=== PATIENT | male | born 1970 | race Caucasian/White ===

== ENCOUNTER 2019-04-17 12:30 | Outpatient (RCR) | payer BC, SELFPAY ==
--- NOTE | 2019-04-10 16:02 | PTOPEVAL ---
PHYSICAL THERAPY EVALUATION AND PLAN OF CARE 04-10-2019 The PT evaluation was completed today for the diagnosis of B LE lymphedema and plan of treatment is established for 2x/week for 4 weeks.. Thank you for referring Jesus to [facility] [place]. Please review, sign, date and return this plan of care CARMELA. I agree with and certify that the following plan of care is medically necessary. Referring Physician Date Attending Provider: Mehran Wetzel MD *PT Outpatient Evaluation Start: 04/10/19 14:59 Document 04/10/19 14:55 MAGALY (Rec: 04/10/19 16:00 [id number] [id number]) Assessment Status Evaluation Outpatient Past Medical History Neurological History Hx Transient Ischemic Attacks (TIA) Yes Hx Other Neurological Disorders Yes: PERIPHERAL NEUROPATHY, chronic regional pain syndrome Cardiovascular History Hx Hypertension Yes: meds Hx Other Cardiac Disorders Yes: DVT in B LE's Respiratory History Hx Sleep Apnea Yes: not using CPAP Hx Other Respiratory Disorders Yes: seasonal allergies Gastrointestinal History Hx Gastroesophageal Reflux Disease Yes Hx Hernia Yes: RIGHT INGUINAL Hx Irritable Bowel Yes Genitourinary History Hx Benign Prostatic Hyperplasia Yes: PROSTATITIS Hx Other Genitourinary Disorders Yes: had kidney failure due to coma reaction from vancomycin Musculoskeletal History Hx Back Pain Yes: T 12 crushed; L 4-5 disc herniation Hx Orthopedic Surgery Yes: SURGERY X7 RIGHT HIP- THR with infection Hx Other Musculoskeletal Disorders Yes: fibromyalgia; has lost 10 #, trying to lose wt Hematological History Hx Hematological Disorders No Significant History Endocrine History Hx Diabetes Yes: taking meds, decreasing and trying to get off meds HEENT History Hx Tonsillectomy Yes Hx Sinus Problems Yes: sinus surgery x2; Integumentary History Hx Skin Disorders No Significant History Reproductive History Hx Reproductive Disorders No Significant History Psychosocial History Hx Anxiety Yes Pain History History of Any Previous or Ongoing No Significant History Instance of Pain Anesthesia History Hx Other Anesthesia Reactions Yes: ALWAYS WAKES UP DURING SURGERY Other History Hx MRSA Yes Hx Other Medical Conditions Yes: medically induced coma Evaluation Information Problem Diagnosis lymphedema in B LE's; Onset Jan 16, 2019 Prior Level of Function Activity Level (Last 3 Months) 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
--- NOTE | 2019-04-19 13:49 | PCPTNOTE ---
Patient called & cancelled scheduled appointment , pt stated he was [ ]in ER with kidney stones
--- NOTE | 2019-05-29 14:46 | PCPTNOTE ---
PHYSICAL THERAPY DISCHARGE 05-29-2019 Attending Provider: Mehran Wetzel MD Patient:Jesus Laws Date of :1970 Mr. Laws has not returned for any further treatments since 04/17/2019, therefore he will be discharged from therapy at this time. The goals were not assessed. He received 2 PT sessions on April 10 and , for the diagnosis of lymphedema. He then called and canceled, stated he had kidney stones. And did not return for any further treatments. Thank you for referring Jesus to [facility]. Please review, sign, date and return this discharge summary CARMELA. I have been updated about the patient's current status and I agree with discharge from the above service at this time. Referring Physician Date
== END 2019-05-30 11:15 | disposition home or self-care (01) ==
LOC: ANHPT 12:30
PROVIDERS: Visit Provider Internal Medicine Cardiovascular Disease
DX: I89.0 Lymphedema, not elsewhere classified (principal)
CPT/HCPCS: 97140; 97162

== ENCOUNTER 2019-04-30 17:11 | Outpatient (RCR) | payer BC, SELFPAY ==
[2019-04-30 18:27] LABS: Basophils Absolute Auto 0.1 K/mm3 (0.0-0.1); Basophils Percent Auto 0.5 % (0.2-1.2); Eosinophils Absolute Auto 0.2 K/mm3 (0-0.3); Eosinophils Percent Auto 2.2 % (0-4.4); Hemoglobin 14.4 g/dL (14.0-18.0); Immature Granulocyte Absolute 0.03 K/mm3 (0.00-0.031); Immature Granulocyte Percent A 0.3 % (0-0.5); Lymphocytes Absolute Auto 2.25 K/mm3 (0.9-3.2); Lymphocytes Percent Auto 23.2 % (18.3-44.2); Mean Corpuscular HGB Conc 31.3 g/dl (32-36); Mean Corpuscular Hemoglobin 26.6 pg (26-34); Mean Corpuscular Volume 84.9 fl (80-100); Mean Platelet Volume 10.5 fl (7.4-10.4); Monocytes Absolute Auto 0.6 K/mm3 (0.1-0.6); Neutrophils Absolute Auto 6.6 K/mm3 (1.3-6.7); Neutrophils Percent Auto 67.8 % (45.5-73.1); Platelet Count Result 202 k/mm3 (150-375); Red Blood Count 5.42 M/mm3 (4.6-6.20); Red Cell Distribution Width 15.9 % (11.5-14.5); White Blood Count 9.7 K/mm3 (4.5-10.0)
[2019-04-30 18:48] LABS: Alanine Aminotransferase 17 U/L (4-50); Albumin Level 4.4 g/dL (3.5-5.1); Alkaline Phosphatase 75 U/L (38-126); Aspartate Amino Transferase 23 U/L (17-59); Bilirubin,Total 0.6 mg/dL (0.2-1.3); Blood Urea Nitrogen 16 mg/dL (9-20); Calcium 9.6 mg/dL (8.4-10.2); Carbon Dioxide 32 mmol/L (22-30); Chloride 95 mmol/L (98-107); Estimated Glomerular Filt Rate > 60; Glucose 130 mg/dL (75-110); Sodium 140 mmol/L (137-145)
[2019-04-30 19:36] LABS: Hepatitis B Surface Anti Res Negative; Hepatitis C Virus Antibody Negative (Negative)
[2019-05-03 22:46] LABS: NIL 0.02 IU/mL; Quantiferon TB Plus, 1T NEGATIVE (NEGATIVE)
[2019-05-04 22:45] LABS: Hepatitis B Core Ab Total Nonreactive (Nonreactive); Hepatitis Be Antibody Nonreactive; Hepatitis Be Antigen Nonreactive
== END 2019-07-29 23:59 | disposition home or self-care (01) ==
LOC: ANHLAB 17:11
DX: M06.9 Rheumatoid arthritis, unspecified (principal); M06.09 Rheumatoid arthritis without rheumatoid factor, multiple sites; Z79.899 Other long term (current) drug therapy
CPT/HCPCS: 36415; 80053; 85025; 86480; 86704; 86706; 86707; 86803; 87350

== ENCOUNTER 2019-09-05 18:11 | Emergency (ER) | payer BC, SELFPAY ==
--- NOTE | ~2019-09-05 | XR_ITS ---
EXAMINATION: XR hip LT min 3V w AP pelvis DATE: 09/05/2019 18:47 INDICATION: Left hip pain. TECHNIQUE: An anteroposterior view of the pelvis and 3 views of left hip were obtained. COMPARISON: Right femur radiographs 01/14/2013 FINDINGS: Partially visualized is a total right hip arthroplasty in near-anatomic alignment. No fract ure. There is mild left hip osteoarthritis. Surgical clips overlie the left inguinal region. There is mild lumbar spondylosis. IMPRESSION: 1. Mild left hip osteoarthritis. 2. Total right hip arthroplasty in near-anatomic alignment. Reviewed, dictated and finalized at location A.
[2019-09-05 18:22] VITALS: BP 149/79; PULSE 90; RESP 20; TEMP 36.7; O2SAT 98
--- NOTE | 2019-09-05 19:10 | ED.GENADULT ---
HPI - General Adult General Chief complaint: Extremity Injury, Lower Stated complaint: FELL 11 DAYS A GO Time Seen by Provider: 09/05/19 18:15 Source: patient Mode of arrival: ambulatory Limitations: no limitations History of Present Illness HPI narrative: Patient is a 49-year-old male who notes that he slipped and fell onto his left side 11 days ago and has since had aching pain to the left hip groin region patient notes that this happened 11 days ago has not been seen for this complaint on arrival to emergency department notes aching pain worse with activity and movement patient denies other injuries or complaints. Patient presents with walking cane Related Data Home Medications Medication Instructions Recorded Confirmed alprazolam 1 mg PO DAILY 03/09/19 03/09/19 apixaban [Eliquis] 5 mg PO DAILY 03/09/19 03/14/19 dicyclomine 10 mg PO DAILY 03/09/19 03/09/19 diphenoxylate-atropine 3 tablet PO TID 03/09/19 03/09/19 duloxetine [Cymbalta] 60 mg PO DAILY 03/09/19 03/09/19 ergocalciferol (vitamin D2) 03/09/19 [Vitamin D2] furosemide 40 mg PO DAILY 03/09/19 03/09/19 losartan 50 mg PO DAILY 03/09/19 03/09/19 methadone 10 mg PO DAILY 03/09/19 03/09/19 methotrexate sodium (PF) 03/09/19 montelukast [Singulair] 10 mg PO DAILY 03/09/19 03/09/19 oxycodone 15 mg PO DAILY 03/09/19 03/09/19 pregabalin [Lyrica] 200 mg PO DAILY 03/09/19 03/09/19 rabeprazole [AcipHex] 20 mg PO DAILY 03/09/19 03/09/19 sitagliptin [Januvia] 100 mg PO DAILY 03/09/19 03/09/19 spironolactone 25 mg PO DAILY 03/09/19 03/09/19 tamsulosin 0.4 mg PO DAILY 03/09/19 03/09/19 testosterone cypionate 200 mg IM WEEKLY 03/09/19 03/09/19 tizanidine 4 mg PO DAILY 03/09/19 Allergies Allergy/AdvReac Type Severity Reaction Status Date / Time Penicillins Allergy Unknown Rash Verified 09/05/19 18:24 prednisone Allergy Unknown Rash Verified 09/05/19 18:24 vancomycin Allergy Unknown UNK Verified 03/14/19 10:08 Review of Systems Review of Systems: All systems reviewed & are unremarkable except as noted in HPI and below PMFSH Past Medical History Medical History (Updated 09/05/19 @ 19:13 by Melvin Renteria PA-C) Anxiety Diabetes GERD (gastroesophageal reflux disease) Hyperlipidemia Hypertension WILLIAM (obstructive sleep apnea) Surgical History Surgical History (Updated 09/05/19 @ 19:11 by Melvin Renteria PA-C) History of orthopedic surgery Family History Family History (Updated 12/29/10 @ 15:51 by DOCTOR UNKNOWN) Other Diabetes mellitus Family history of mental disorder Hypertension Social History Social History Alcohol intake: never Exam Narrative: Exam Narrative: GENERAL: Well-appearing, well-nourished, and in no acute distress. HEAD: Normocephalic, atraumatic. EYES: PERRLA and EOMI. ENT: Nares clear, no rhinorrhea or epistaxis. Mucous membranes moist. CHEST: Clear to auscultation. No respiratory distress. No wheezes rales or rhonchi HEART: Regular rate and rhythm. No murmur heard. Normal peripheral pulses. EXTREMITIES: Normal range of motion. No edema. Tenderness of the left groin no deformities noted. No lumbar tenderness SKIN: Warm, dry, no rash. NEURO: No focal deficits. Alert and oriented x3. Cranial nerves II through XII grossly intact. Neurovascularly intact PSYCH: Normal mood and affect. Course Course Emergency Course: Patient in the room in no distress aware of case findings treatment plan and diagnosis agreeing to follow-up as directed or to return if symptoms worsen or concerns Vital Signs Vital signs: Vital Signs Temperature 98.0 F 09/05/19 18:22 Pulse Rate 90 09/05/19 18:22 Respiratory Rate 20 09/05/19 18:22 Blood Pressure 149/79 H 09/05/19 18:22 Pulse Oximetry 98 09/05/19 18:22 Temperature 98.0 F 09/05/19 18:22 Pulse Rate 90 09/05/19 18:22 Respiratory Rate 20 09/05/19 18:22 Blood Pressure 149/79 H 09/05/19 18:22 Pulse O
[2019-09-05 19:43] VITALS: BP 130/80; PULSE 88; RESP 20; TEMP 36.7; O2SAT 99
== END 2019-09-05 19:46 | disposition home or self-care (01) ==
PROVIDERS: Emergency Provider Emergency Medicine
DX: M25.552 Pain in left hip (principal); E11.9 Type 2 diabetes mellitus without complications; K21.9 Gastro-esophageal reflux disease without esophagitis; E78.5 Hyperlipidemia, unspecified; I10 Essential (primary) hypertension; G47.33 Obstructive sleep apnea (adult) (pediatric); Z79.01 Long term (current) use of anticoagulants; M16.12 Unilateral primary osteoarthritis, left hip; Z96.642 Presence of left artificial hip joint; W01.0XXA Fall on same level from slipping, tripping and stumbling without subsequent striking against object, initial encounter
CPT/HCPCS: 73502; 99283

== ENCOUNTER 2020-01-16 06:48 | Outpatient (NON) | payer BC, SELFPAY ==
[2020-01-16 23:56] LABS: SARS-CoV-2 RNA PCR Negative
== END 2020-01-16 06:49 ==
DX: Z01.812 Encounter for preprocedural laboratory examination (principal); Z20.828 Contact with and (suspected) exposure to other viral communicable diseases
CPT/HCPCS: 87635; C9803; U0003

== ENCOUNTER 2020-01-22 14:58 | Outpatient (NON) | payer BC, SELFPAY ==
[2020-01-24 13:31] LABS: SARS-CoV-2 RNA PCR Negative
== END 2020-01-22 14:59 ==
DX: Z01.812 Encounter for preprocedural laboratory examination (principal); Z20.828 Contact with and (suspected) exposure to other viral communicable diseases
CPT/HCPCS: 87635; C9803; U0003

== ENCOUNTER 2020-02-18 14:56 | Outpatient (RCR) | payer BC, SELFPAY ==
[2020-02-18 15:51] LABS: Basophils Percent Auto 0.3 % (0.2-1.2); Eosinophils Absolute Auto 0.3 K/mm3 (0-0.3); Eosinophils Percent Auto 2.2 % (0-4.4); Hematocrit 44.3 % (42.0-52.0); Hemoglobin 14.2 g/dL (14.0-18.0); Immature Granulocyte Absolute 0.04 K/mm3 (0.00-0.031); Immature Granulocyte Percent A 0.3 % (0-0.5); Lymphocytes Absolute Auto 2.39 K/mm3 (0.9-3.2); Lymphocytes Percent Auto 19.8 % (18.3-44.2); Mean Corpuscular HGB Conc 32.1 g/dl (32-36); Mean Corpuscular Hemoglobin 28.5 pg (26-34); Mean Corpuscular Volume 88.8 fl (80-100); Mean Platelet Volume 9.2 fl (7.4-10.4); Monocytes Absolute Auto 0.7 K/mm3 (0.1-0.6); Monocytes Percent Auto 5.8 % (2.6-8.5); Neutrophils Absolute Auto 8.6 K/mm3 (1.3-6.7); Neutrophils Percent Auto 71.6 % (45.5-73.1); Platelet Count Result 187 k/mm3 (150-375); Red Blood Count 4.99 M/mm3 (4.6-6.20); Red Cell Distribution Width 13.7 % (11.5-14.5); White Blood Count 12.1 K/mm3 (4.5-10.0)
[2020-02-18 16:15] LABS: Cholesterol 178 mg/dL (0-200); HDL Direct 36 mg/dL; Triglycerides 148 mg/dL (<150)
[2020-02-18 16:21] LABS: Alanine Aminotransferase 18 U/L (4-50); Alkaline Phosphatase 74 U/L (38-126); Anion Gap 7 mmol/L (8-16); Aspartate Amino Transferase 23 U/L (17-59); Bilirubin,Total 0.8 mg/dL (0.2-1.3); Blood Urea Nitrogen 14 mg/dL (9-20); Calcium 9.8 mg/dL (8.4-10.2); Carbon Dioxide 38 mmol/L (22-30); Chloride 93 mmol/L (98-107); Estimated Glomerular Filt Rate > 60; Glucose 118 mg/dL (75-110); Potassium 4.9 mmol/L (3.4-5.0); Sodium 138 mmol/L (137-145)
[2020-02-18 16:27] LABS: LDL Cholesterol Direct 126 mg/dL
[2020-02-18 16:39] LABS: Vitamin D 25 Hydroxy 56.2 ng/mL
[2020-02-18 16:52] LABS: Prostate Specific Antigen 0.3 ng/mL (< OR = 4.0)
[2020-02-23 12:25] LABS: Testosterone Free 3.8 pg/mL (35.0-155.0); Testosterone Total 35 ng/dL (250-1100)
[2020-02-26 19:27] LABS: Estradiol, Ultrasensitive 13 pg/mL (< OR = 29)
== END 2020-05-18 23:59 | disposition home or self-care (01) ==
LOC: ANHLAB 14:56
DX: M06.09 Rheumatoid arthritis without rheumatoid factor, multiple sites (principal); E55.9 Vitamin D deficiency, unspecified; E11.40 Type 2 diabetes mellitus with diabetic neuropathy, unspecified; E29.1 Testicular hypofunction; Z79.899 Other long term (current) drug therapy; Z12.5 Encounter for screening for malignant neoplasm of prostate
CPT/HCPCS: 36415; 80053; 80061; 82306; 82670; 83036; 84153; 84402; 84403; 84443; 85025; G0103

== ENCOUNTER 2020-03-23 00:13 | Emergency (ER) | payer BC, SELFPAY ==
--- NOTE | ~2020-03-23 | CT_ITS ---
EXAMINATION: CT abdomen pelvis wo con EXAM DATE: 03/23/2020 00:42 INDICATION: Left flank pain. TECHNIQUE: Spiral CT of the abdomen and pelvis was performed without contrast. Axial, coronal and sag ittal images were reviewed. The dose-length product (DLP) for this examination was 1662.35 mGy-cm. The exposure was tailored according to patient size (auto mA exposure control), and iterative reconst ruction (ASIR) was used as additional dose reduction technique. Comparison is made to prior examinati on from 04/29/2017. FINDINGS: There is a 5 mm stone in the distal aspect left ureter, 1 cm from the ureterovesicular junc tion, with mild left-sided obstructive nephropathy. There is punctate right mid calyceal stone. The prostate is unremarkable. The bladder is unremarkable. There is mild splenomegaly. Liver, adrenal glands, pancreas are unremarkable. Layering dense material in the gallbladder, probab ly poorly calcified stones or cholelithiasis. There is no retroperitoneal or pelvic lymphadenopathy. Small right inguinal fat-containing hernia. Prior left inguinal hernia repair. No evidence of appendicitis The stomach and small bowel are unremarkable. There is moderate amount of colonic stool. There is mild sigmoid colonic diverticulosis. There is no adjacent inflammatory ch aston to suggest diverticulitis. No free intraperitoneal gas. The heart is normal in size. There a re no pericardial or pleural effusions. The lung bases are unremarkable. There are no osteoblastic or osteolytic lesions identified. Total right hip arthroplasty. Chronic moderate compression fracture of T12. IMPRESSION: 1. Left distal ureteral 5 mm stone, mild obstructive nephropathy. 2. Punctate right nephrolithiasis. 3. Mild splenomegaly. 4. Mild sigmoid diverticulosis. 5. Gallbladder sludge or cholelithiasis. 6. Small right inguinal hernia. Reviewed, dictated and finalized at location A. [employer]
--- NOTE | ~2020-03-23 | XR_ITS ---
EXAMINATION: XR abdomen/kub 1V EXAM DATE: 03/23/2020 01:27 INDICATION: Kidney stone. TECHNIQUE: Frontal projection(s) of the abdomen for interpretation. Correlation is made to CT abdomen pelvis same date. FINDINGS: Probable identification of left distal ureteral 5 mm stone, indicated. Moderate to large a mount of colonic stool and gas. No small bowel dilation. Some linear left basilar atelectasis. Right hip replacement. IMPRESSION: Probable identification left distal ureteral stone. Reviewed, dictated and finalized at location A. STRIAL SEWER
[2020-03-23 00:20] VITALS: BP 141/70; PULSE 108; RESP 18; TEMP 36.2; O2SAT 98
--- NOTE | 2020-03-23 00:31 | ED.GENADULT ---
HPI - General Adult General Chief complaint: Urogenital-Male Stated complaint: Hematuria, left flank pain Time Seen by Provider: 03/23/20 00:23 Source: RN notes reviewed History of Present Illness HPI narrative: Patient presents emergency department from home for left flank pain. Patient states pain began 2 days ago in the left flank region in the left lower abdomen associated with nausea and vomiting patient denies any fevers or chills chest pain shortness of breath diarrhea or any other symptoms states he has had blood in his urine states he last took his home pain medication approximately noon which includes oxycodone Related Data Home Medications Medication Instructions Recorded Confirmed alprazolam 1 mg PO DAILY 03/09/19 03/09/19 apixaban [Eliquis] 5 mg PO DAILY 03/09/19 03/14/19 dicyclomine 10 mg PO DAILY 03/09/19 03/09/19 diphenoxylate-atropine 3 tablet PO TID 03/09/19 03/09/19 duloxetine [Cymbalta] 60 mg PO DAILY 03/09/19 03/09/19 ergocalciferol (vitamin D2) 03/09/19 [Vitamin D2] furosemide 40 mg PO DAILY 03/09/19 03/09/19 losartan 50 mg PO DAILY 03/09/19 03/09/19 methadone 10 mg PO DAILY 03/09/19 03/09/19 methotrexate sodium (PF) 03/09/19 montelukast [Singulair] 10 mg PO DAILY 03/09/19 03/09/19 oxycodone 15 mg PO DAILY 03/09/19 03/09/19 pregabalin [Lyrica] 200 mg PO DAILY 03/09/19 03/09/19 rabeprazole [AcipHex] 20 mg PO DAILY 03/09/19 03/09/19 sitagliptin [Januvia] 100 mg PO DAILY 03/09/19 03/09/19 spironolactone 25 mg PO DAILY 03/09/19 03/09/19 tamsulosin 0.4 mg PO DAILY 03/09/19 03/09/19 testosterone cypionate 200 mg IM WEEKLY 03/09/19 03/09/19 tizanidine 4 mg PO DAILY 03/09/19 Allergies Allergy/AdvReac Type Severity Reaction Status Date / Time prednisone Allergy Unknown Rash Verified 03/23/20 00:25 vancomycin Allergy Unknown UNK Verified 03/23/20 00:24 Review of Systems Review of Systems: Narrative: Gen.: Denies fevers or chills ENT: Denies congestion Respiratory: Denies shortness of breath or cough CV: Denies chest pain or palpitations GI: See HPI denies burning, urgency, frequency reports hematuria Musculoskeletal: Denies back pain or muscle pain Neuro: Denies numbness, tingling, weakness or focal weakness Skin: Denies rash Except as documented, all other systems reviewed and negative [facility] Past Medical History Medical History Anxiety Diabetes GERD (gastroesophageal reflux disease) Hyperlipidemia Hypertension WILLIAM (obstructive sleep apnea) Surgical History Surgical History (Updated 09/05/19 @ 19:11 by Melvin Renteria PA-C) History of orthopedic surgery Family History Family History (Updated 12/29/10 @ 15:51 by DOCTOR UNKNOWN) Other Diabetes mellitus Family history of mental disorder Hypertension Social History Social History Alcohol intake: never Exam Narrative: Exam Narrative: APPEARANCE: No acute distress, nontoxic, resting in bed EYES: EOMI HEENT: Normocephalic, atraumatic, OMM RESPIRATORY: No respiratory distress Clear to auscultation bilaterally with no rhonchi wheezing or rales. CARDIOVASCULAR: Regular rate and rhythm without murmurs rubs or gallops. ABDOMINAL: Soft, nontender, nondistended, no rebound or guarding left flank tenderness MUSCULOSKELETAl: Moves all extremities. No clubbing, cyanosis or edema. NEURO: Awake and alert. Following commands, speech normal, no focal deficits SKIN:: Warm, dry. No rashes lesions or abrasions PSYCHIATRIC: Normal affect/mood, Course Course Emergency Course: Patient states pain is improved at this time the patient is currently on Flomax twice a day at home already and follows with Dr. Martinez he currently is on oxycodone 50 mg 3 times daily and has methadone at home is currently on Eliquis I will hold any NSAIDs you can take his normal pain medications will prescribe nausea medication Discussed with divine
[2020-03-23 01:17] LABS: Basophils Absolute Auto 0.1 K/mm3 (0.0-0.1); Basophils Percent Auto 0.6 % (0.2-1.2); Eosinophils Absolute Auto 0.2 K/mm3 (0-0.3); Eosinophils Percent Auto 1.9 % (0-4.4); Hematocrit 39.1 % (42.0-52.0); Hemoglobin 12.6 g/dL (14.0-18.0); Immature Granulocyte Absolute 0.02 K/mm3 (0.00-0.031); Immature Granulocyte Percent A 0.2 % (0-0.5); Lymphocytes Absolute Auto 1.84 K/mm3 (0.9-3.2); Lymphocytes Percent Auto 17.7 % (18.3-44.2); Mean Corpuscular HGB Conc 32.2 g/dl (32-36); Mean Corpuscular Hemoglobin 28.1 pg (26-34); Mean Corpuscular Volume 87.1 fl (80-100); Mean Platelet Volume 9.9 fl (7.4-10.4); Monocytes Absolute Auto 0.8 K/mm3 (0.1-0.6); Monocytes Percent Auto 7.8 % (2.6-8.5); Neutrophils Absolute Auto 7.5 K/mm3 (1.3-6.7); Neutrophils Percent Auto 71.8 % (45.5-73.1); Platelet Count Result 156 k/mm3 (150-375); Red Blood Count 4.49 M/mm3 (4.6-6.20); Red Cell Distribution Width 13.7 % (11.5-14.5); White Blood Count 10.4 K/mm3 (4.5-10.0)
[2020-03-23] MEDS: ONDANSETRON INJ 4 MG/2 ML VIAL IV PUSH (01:18)
[2020-03-23] MEDS: KETOROLAC 30 MG/ML VIAL (*BKC) IV PUSH (01:19)
[2020-03-23] MEDS: SODIUM CHLORIDE 0.9% IV 1,000 ML 999 ML IV CONT (01:20)
[2020-03-23 01:36] LABS: Anion Gap 7 mmol/L (8-16); Blood Urea Nitrogen 17 mg/dL (9-20); Calcium 8.9 mg/dL (8.4-10.2); Carbon Dioxide 33 mmol/L (22-30); Chloride 95 mmol/L (98-107); Estimated CRCL calculation 82 ml/min; Estimated Glomerular Filt Rate 53; Glucose 149 mg/dL (75-110); Potassium 4.1 mmol/L (3.4-5.0); Sodium 135 mmol/L (137-145)
[2020-03-23 02:21] LABS: Add Urine Microscopic? YES; Appearance Urine Clear (Clear); Bacteria Urine Trace /hpf; Bilirubin Urine Negative (Negative); Blood Urine 3+ (Negative); Color Urine Yellow (Yellow); Glucose Urine UA Negative (Negative); Ketones Urine Negative (Negative); Leukocyte Esterase Ur Negative LEU/UL (Negative); Mucus Urine Rare /lpf; Nitrate Urine Negative (Negative); Protein Urine 1+ mg/dL (Negative); RBC Urine >75 /hpf (0-2); Specific Grav Ur 1.016 (1.001-1.035); Squamous Epithelial Cell Urine Rare /hpf (Few)
[2020-03-23] MEDS: MORPHINE SULFATE (*CRX) 4 MG/ML INJ IV PUSH (02:47)
[2020-03-23 03:19] VITALS: BP 134/59; PULSE 95; RESP 20; O2SAT 95
== END 2020-03-23 03:35 | disposition home or self-care (01) ==
PROVIDERS: Emergency Provider Emergency Medicine; PCP Internal Medicine
DX: N13.2 Hydronephrosis with renal and ureteral calculous obstruction (principal); F41.9 Anxiety disorder, unspecified; E11.9 Type 2 diabetes mellitus without complications; E78.5 Hyperlipidemia, unspecified; K21.9 Gastro-esophageal reflux disease without esophagitis; I10 Essential (primary) hypertension; Z79.84 Long term (current) use of oral hypoglycemic drugs
CPT/HCPCS: 36415; 74018; 74176; 80048; 81001; 85025; 96361; 96374; 96375; 99284; J1885; J2270; J2405; J7030

== ENCOUNTER 2020-03-27 01:01 | Day surgery (SDC) | payer BC, SELFPAY ==
[2020-03-26 14:08] VITALS: BMI 45.3
--- NOTE | 2020-03-26 14:43 | PC.NURSE ---
STATES NO CHANGE IN HEALTH HX. LAST INTERVIEW 03/23/20
--- NOTE | ~2020-03-27 | XR_ITS ---
EXAMINATION: XR retrograde pyelogram LT INDICATION: Left distal ureteral stone TECHNIQUE: 50 intraoperative fluoroscopic images are submitted for review. Total fluoroscopic time is 39.1 seconds COMPARISON: None available FINDINGS: No significant left hydroureteronephrosis is identified. The bowel gas pattern is unremarka ble. Changes of right total hip arthroplasty are noted. IMPRESSION: 1. Please refer to procedure note for full details. Reviewed, dictated and finalized at location A. TWISTER WINDER
[2020-03-27 06:25] VITALS: BP 126/65; PULSE 79; RESP 20; TEMP 36.3; O2SAT 97
--- NOTE | 2020-03-27 06:38 | ECG_ITS ---
Measurements Intervals [place] Rate: 81 P: 15 IA: 161 QRS: 14 QRSD: 104 T: 32 QT: 361 QTc: 420 Interpretive Statements SINUS RHYTHM BASELINE ARTIFACT- II, AVR, AVF, V1 NORMAL ECG Electronically Signed On 03-27-2020 8:57:04 REHAB SPEC by Rao Hatfield D.O.
--- NOTE | 2020-03-27 06:43 | WPDANESEPPF ---
Anes - Initial Pre Proc Eval Procedure: Operation Date: 03/27/20 08:00 Proposed Procedures p Cystoscopy, Left Retrograde Pyelogram, Ureteroscopy, Possible Left Stent - Celestino Babcock MD s Possible Holmium Laser Procedure - Celestino Babcock MD Date/Time: 03/27/20 06:43 Surgeon: Celestino Babcock MD Pre Op Diagnosis: Left Ureteral Stone Patient Data Age: 50 Gender: M Height: 1.8 m Weight: 151.9 kg Allergies Allergy/AdvReac Type Severity Reaction Status Date / Time vancomycin Allergy Unknown COMPLETE Verified 03/27/20 06:24 RENAL FAILURE adhesive tape AdvReac Unknown Blister Verified 03/27/20 06:24 Home Medications Medication Instructions Recorded Confirmed Type alprazolam 1 mg PO TID 03/09/19 03/27/20 History apixaban [Eliquis] 5 mg PO BID 03/09/19 03/27/20 History diphenoxylate-atropine 3 tablet PO TID 03/09/19 03/27/20 History duloxetine [Cymbalta] 60 mg PO DAILY 03/09/19 03/27/20 History ergocalciferol (vitamin D2) 50,000 unit PO WEEKLY 03/09/19 03/27/20 History [Vitamin D2] furosemide 40 mg PO DAILY 03/09/19 03/27/20 History losartan 50 mg PO DAILY 03/09/19 03/27/20 History methadone 10 mg PO TID 03/09/19 03/27/20 History montelukast [Singulair] 10 mg PO DAILY 03/09/19 03/27/20 History oxycodone 15 mg PO TID 03/09/19 03/27/20 History pregabalin [Lyrica] 200 mg PO TID 03/09/19 03/27/20 History rabeprazole [AcipHex] 20 mg PO BID 03/09/19 03/27/20 History sitagliptin [Januvia] 100 mg PO DAILY 03/09/19 03/27/20 History spironolactone 25 mg PO DAILY 03/09/19 03/27/20 History tamsulosin 0.4 mg PO BID 03/09/19 03/27/20 History testosterone cypionate 200 mg IM WEEKLY 03/09/19 03/27/20 History tizanidine 4 mg PO DAILY 03/09/19 03/27/20 History Patient hx anesthesia problems: none Family hx anesthesia problems: none COUNT INCLUDES THE [facility] Past Medical History Medical History Anxiety Diabetes GERD (gastroesophageal reflux disease) Hyperlipidemia Hypertension WILLIAM (obstructive sleep apnea) Surgical History Surgical History (Updated 09/05/19 @ 19:11 by Melvin Renteria PA-C) History of orthopedic surgery Family History Family History (Updated 12/29/10 @ 15:51 by DOCTOR UNKNOWN) Other Diabetes mellitus Family history of mental disorder Hypertension Social History Social History Smokeless tobacco user: chewing tobacco Additional smoking assessment comments: CURRENTLY CHEWS TOBACCO X 36 YEARS Alcohol intake: never Living arrangements: with family Spiritual care concerns: No Anes - Eval Final PreProcedure Day of Procedure 03/27/20 06:43 Patient weight: morbidly obese Heart: regular rate and rhythm Lungs: clear to auscultation and normal air movement Airway: Mallampati scale class II Neurological: alert and oriented Last oral intake: >/= 8 hours ASA classification: III Emergent: no Anesthetic plan: proceed Anesthesia type and monitoring: general LMA and standard monitoring Informed Consent: The patient's anesthetic plan and its attendant risks and benefits were discussed with the patient/family/POA. Questions were solicited and answers provided to the satisfaction of the patient/family/POA.
[2020-03-27] MEDS: LACTATED RINGERS 1,000 ML 30 ML IV CONT (06:57)
[2020-03-27 07:05] LABS: Glucose Point of Care 132 (65-105)
--- NOTE | 2020-03-27 07:12 | WPDHPUPDATE1 ---
History and Physical Update Update Date/Time: 03/27/20 07:12 History and Physical has been reviewed, including an updated exam of the patient. There are NO changes in the patient's condition. Risks, benefits, and alternatives have been discussed and questions answered. Patient agrees to proceed with procedure.
[2020-03-27] MEDS: ceFAZolin 3 GM/D5W 100 ML 100 ML IVPB (07:18)
[2020-03-27] MEDS: LIDOCAINE HCL 2% GEL UROJET 10 ML PKG MUCOUS MEM (07:26)
--- NOTE | 2020-03-27 07:48 | PM.PROC ---
Procedure Note - Detailed Date of procedure: 03/27/20 Pre-op diagnosis: Left Ureteral Stone Post-op diagnosis: other (Spontaneously passed left ureteral stone) Procedure performed: Cystoscopy with left retrograde pyelography, left ureteroscopy Description of procedure: The patient was brought to the operative suite where he is prepped and draped in a routine sterile fashion while in the dorsal lithotomy position after the uneventful induction of a general LMA anesthetic. A 19F rigid cystoscope was placed in the bladder. There are no urethral strictures. His prostatic urethra measures, approximately, 1.5cm with no median lobe enlargement. The bladder mucosa was endoscopically normal without hyperemia or neoplasm. There was a single, orthotopic ureteral orifice bilaterally. A 0.035 glidewire was advanced into the left renal pelvis under fluoroscopy. The distal ureter was dilated with an 8F/10F ureteral dilator. Ureteroscopy was undertaken with a 7.5F flexible ureteroscope. There was no identifiable stone in the distal ureter. I performed a left RPG and saw no proximal stones. I performed complete ureterorenoscopy and found only a couple small clots in the collecting system but no identifiable stones. Due to the ease of this manipulation I opted not to place a ureteral stent. The patient's bladder was emptied and was taken to the recovery room having tolerated this procedure well. Anesthesia: GLMA Surgeon: Celestino Babcock MD Supervising Floorperson: None Estimated blood loss (mL): 0 Drains: No Packing: No Pathology: none sent Complications: No immediate complications Condition: stable Disposition: PACU
[2020-03-27 07:55] VITALS: BP 92/56; PULSE 88; RESP 10; TEMP 36.3; O2SAT 99
[2020-03-27 08:04] LABS: Glucose Point of Care 109 (65-105)
[2020-03-27 08:10] VITALS: BP 116/60; PULSE 78; RESP 8; O2SAT 99
[2020-03-27] MEDS: fentaNYL CITRATE INJ (*CRX) 100 MCG/2 ML VIAL 25 MCG IV PUSH ×2 (08:22→08:30)
[2020-03-27 08:30] VITALS: BP 147/66; PULSE 73; RESP 16; O2SAT 93
[2020-03-27 09:00] VITALS: BP 104/69; PULSE 84; RESP 12; O2SAT 92
[2020-03-27] MEDS: oxyCODONE HCL (*CRX) 5 MG TAB IR PO (09:23)
[2020-03-27 09:30] VITALS: BP 118/61; PULSE 75; RESP 14; O2SAT 95
== END 2020-03-27 10:00 | disposition home or self-care (01) ==
PROVIDERS: PCP Internal Medicine; Visit Provider Urology
PROC: (CPT 52352; principal; 2020-03-27 08:00)
DX: N20.1 Calculus of ureter (principal); I10 Essential (primary) hypertension; E78.5 Hyperlipidemia, unspecified; E11.9 Type 2 diabetes mellitus without complications; G47.33 Obstructive sleep apnea (adult) (pediatric); K21.9 Gastro-esophageal reflux disease without esophagitis; F41.9 Anxiety disorder, unspecified; Z79.01 Long term (current) use of anticoagulants; Z79.84 Long term (current) use of oral hypoglycemic drugs; F17.220 Nicotine dependence, chewing tobacco, uncomplicated; E66.01 Morbid (severe) obesity due to excess calories; Z68.42 Body mass index [BMI] 45.0-49.9, adult
CPT/HCPCS: 52005; 74420; 93005; A9270; C1758; C1769; J0690; J2250; J2405; J2704; J3010; J7120; Q9966

== ENCOUNTER 2020-05-22 13:42 | Outpatient (CLI) | payer BC, SELFPAY ==
[2020-05-22 14:07] LABS: Basophils Absolute Auto 0.1 K/mm3 (0.0-0.1); Basophils Percent Auto 0.6 % (0.2-1.2); Eosinophils Absolute Auto 0.2 K/mm3 (0-0.3); Eosinophils Percent Auto 2.6 % (0-4.4); Hematocrit 46.5 % (42.0-52.0); Hemoglobin 14.7 g/dL (14.0-18.0); Immature Granulocyte Absolute 0.02 K/mm3 (0.00-0.031); Immature Granulocyte Percent A 0.2 % (0-0.5); Lymphocytes Absolute Auto 2.16 K/mm3 (0.9-3.2); Lymphocytes Percent Auto 24.7 % (18.3-44.2); Mean Corpuscular HGB Conc 31.6 g/dl (32-36); Mean Corpuscular Hemoglobin 27.7 pg (26-34); Mean Corpuscular Volume 87.6 fl (80-100); Mean Platelet Volume 9.8 fl (7.4-10.4); Monocytes Absolute Auto 0.6 K/mm3 (0.1-0.6); Neutrophils Absolute Auto 5.7 K/mm3 (1.3-6.7); Neutrophils Percent Auto 64.9 % (45.5-73.1); Platelet Count Result 194 k/mm3 (150-375); Red Blood Count 5.31 M/mm3 (4.6-6.20); Red Cell Distribution Width 13.7 % (11.5-14.5); White Blood Count 8.7 K/mm3 (4.5-10.0)
[2020-05-22 14:12] LABS: Blood Urea Nitrogen 10 mg/dL (8-26); Carbon Dioxide 31 mmol/L (22-30); Chloride 97 mmol/L (98-109); Estimated Glomerular Filt Rate > 60; Glucose 116 mg/dL (70-105); Potassium 4.2 mmol/L (3.5-4.9); Sodium 137 mmol/L (138-146)
[2020-05-22 16:36] LABS: Alanine Aminotransferase 17 U/L (4-50); Albumin Level 4.4 g/dL (3.5-5.1); Alkaline Phosphatase 72 U/L (38-126); Anion Gap 9 mmol/L (8-16); Aspartate Amino Transferase 23 U/L (17-59); Bilirubin,Total 0.6 mg/dL (0.2-1.3); Blood Urea Nitrogen 12 mg/dL (9-20); Calcium 9.5 mg/dL (8.4-10.2); Carbon Dioxide 32 mmol/L (22-30); Chloride 97 mmol/L (98-107); Estimated Glomerular Filt Rate > 60; Glucose 117 mg/dL (75-110); Potassium 4.4 mmol/L (3.4-5.0); Sodium 138 mmol/L (137-145)
== END 2020-05-22 13:43 | disposition home or self-care (01) ==
LOC: ANHLAB 13:44
PROVIDERS: PCP Internal Medicine; Visit Provider Internal Medicine Hematology & Oncology
DX: D64.9 Anemia, unspecified (principal)
CPT/HCPCS: 36415; 80048; 80053; 85025

== ENCOUNTER 2020-08-01 12:55 | Outpatient (CLI) | payer BC, SELFPAY ==
--- NOTE | ~2020-08-01 | US_ITS ---
EXAMINATION: US venous doppler LE BI EXAM DATE: 08/01/2020 15:06 INDICATION: Venous insufficiency. TECHNIQUE: Multiple grayscale, color flow and Doppler images of the lower extremity venous systems bi laterally were obtained and reviewed. Saphenous venous mapping. The exam was reviewed on 08/01/2020. Co mparison is made to prior examination from 10/19/2018. FINDINGS: Notation made of limitations from patient's body habitus. Right side: The right common femoral, femoral and profunda veins demonstrate normal color flow, respi ratory variation, augmentation and compressibility. Compressibility, color flow confirmed within the right popliteal, posterior tibial, peroneal, and greater saphenous veins. Right Standing Venous Mapping: reflux seconds duration; vein size. Greater saphenous origin: 0 seconds; 6.5 mm. Greater saphenous mid thigh:------ 0 seconds; 4.5 mm. Greater saphenous below knee:--- 0 seconds; 2.8 mm. Lesser saphenous proximally:------ 0 seconds; 1.5 mm. Lesser saphenous distally: 0 seconds; 1.3 mm. Left side: The left common femoral, femoral and profunda veins demonstrate normal color flow, respira tory variation, augmentation and compressibility. Compressibility, color flow confirmed within the l eft popliteal, posterior tibial, peroneal, and greater saphenous veins. Left Standing Venous Mapping: reflux seconds duration; vein size. Greater saphenous origin: 0 seconds; 2.4 mm. Greater saphenous mid thigh:------ 0 seconds; 3.3 mm. Greater saphenous below knee:--- 0 seconds; 2.3 mm. Lesser saphenous proximally:------ 0 seconds; 2.3 mm. Lesser saphenous distally: 1.0 seconds; 1.2 mm. IMPRESSION: 1. No lower extremity DVT or right venous reflux demonstrated. 2. Left lesser saphenous venous reflux distally. Reviewed, dictated and finalized at location B.
== END 2020-08-01 12:56 | disposition home or self-care (01) ==
PROVIDERS: PCP Internal Medicine; Visit Provider Internal Medicine Cardiovascular Disease
DX: H54.7 Unspecified visual loss (principal)
CPT/HCPCS: 93970

== ENCOUNTER 2020-08-01 15:04 | Outpatient (CLI) | payer BC, SELFPAY ==
[2020-08-01 15:31] LABS: Basophils Percent Auto 0.5 % (0.2-1.2); Eosinophils Absolute Auto 0.2 K/mm3 (0-0.3); Eosinophils Percent Auto 2.3 % (0-4.4); Hematocrit 45.1 % (42.0-52.0); Hemoglobin 13.8 g/dL (14.0-18.0); Immature Granulocyte Absolute 0.03 K/mm3 (0.00-0.031); Immature Granulocyte Percent A 0.4 % (0-0.5); Lymphocytes Absolute Auto 1.94 K/mm3 (0.9-3.2); Lymphocytes Percent Auto 23.2 % (18.3-44.2); Mean Corpuscular HGB Conc 30.6 g/dl (32-36); Mean Corpuscular Hemoglobin 25.6 pg (26-34); Mean Corpuscular Volume 83.7 fl (80-100); Mean Platelet Volume 9.8 fl (7.4-10.4); Monocytes Absolute Auto 0.5 K/mm3 (0.1-0.6); Monocytes Percent Auto 6.5 % (2.6-8.5); Neutrophils Absolute Auto 5.6 K/mm3 (1.3-6.7); Neutrophils Percent Auto 67.1 % (45.5-73.1); Platelet Count Result 192 k/mm3 (150-375); Red Blood Count 5.39 M/mm3 (4.6-6.20); Red Cell Distribution Width 14.9 % (11.5-14.5); White Blood Count 8.4 K/mm3 (4.5-10.0)
[2020-08-01 15:45] LABS: Alanine Aminotransferase 16 U/L (4-50); Albumin Level 4.4 g/dL (3.5-5.1); Alkaline Phosphatase 66 U/L (38-126); Anion Gap 3 mmol/L (8-16); Aspartate Amino Transferase 30 U/L (17-59); Bilirubin,Total 0.7 mg/dL (0.2-1.3); Blood Urea Nitrogen 11 mg/dL (9-20); Calcium 9.6 mg/dL (8.4-10.2); Carbon Dioxide 35 mmol/L (22-30); Chloride 100 mmol/L (98-107); Cholesterol 184 mg/dL (0-200); Estimated Glomerular Filt Rate > 60; Glucose 104 mg/dL (75-110); HDL Direct 33 mg/dL; Potassium 4.4 mmol/L (3.4-5.0); Sodium 138 mmol/L (137-145); Triglycerides 169 mg/dL (<150)
[2020-08-01 15:55] LABS: LDL Cholesterol Direct 124 mg/dL
[2020-08-01 16:03] LABS: Hemoglobin A1C 6.4 % (<5.7)
[2020-08-01 16:30] LABS: Vitamin D 25 Hydroxy 53.5 ng/mL
== END 2020-08-01 15:05 | disposition home or self-care (01) ==
PROVIDERS: PCP Internal Medicine; Visit Provider Internal Medicine Endocrinology, Diabetes & Metabolism
DX: E11.40 Type 2 diabetes mellitus with diabetic neuropathy, unspecified (principal); E78.2 Mixed hyperlipidemia; E55.9 Vitamin D deficiency, unspecified
CPT/HCPCS: 36415; 80053; 80061; 82306; 83036; 84443; 85025

== ENCOUNTER 2020-08-27 16:13 | Outpatient (CLI) | payer BC, SELFPAY ==
[2020-08-27 16:33] LABS: Basophils Absolute Auto 0.1 K/mm3 (0.0-0.1); Basophils Percent Auto 0.7 % (0.2-1.2); Eosinophils Absolute Auto 0.2 K/mm3 (0-0.3); Eosinophils Percent Auto 2.6 % (0-4.4); Hematocrit 42.8 % (42.0-52.0); Hemoglobin 12.9 g/dL (14.0-18.0); Immature Granulocyte Absolute 0.03 K/mm3 (0.00-0.031); Immature Granulocyte Percent A 0.4 % (0-0.5); Lymphocytes Percent Auto 20.8 % (18.3-44.2); Mean Corpuscular HGB Conc 30.1 g/dl (32-36); Mean Corpuscular Hemoglobin 25.4 pg (26-34); Mean Corpuscular Volume 84.4 fl (80-100); Mean Platelet Volume 9.5 fl (7.4-10.4); Monocytes Absolute Auto 0.5 K/mm3 (0.1-0.6); Monocytes Percent Auto 6.8 % (2.6-8.5); Neutrophils Percent Auto 68.7 % (45.5-73.1); Platelet Count Result 175 k/mm3 (150-375); Red Blood Count 5.07 M/mm3 (4.6-6.20); Red Cell Distribution Width 15.3 % (11.5-14.5); White Blood Count 7.2 K/mm3 (4.5-10.0)
[2020-08-27 16:50] LABS: INR 1.2; Prothrombin Time 15.3 Seconds (11.1-14.7)
== END 2020-08-27 16:14 | disposition home or self-care (01) ==
LOC: ANHLAB 16:15
PROVIDERS: PCP Internal Medicine; Visit Provider Internal Medicine Cardiovascular Disease
DX: Z01.812 Encounter for preprocedural laboratory examination (principal); I74.9 Embolism and thrombosis of unspecified artery; M79.606 Pain in leg, unspecified
CPT/HCPCS: 36415; 85025; 85610

== ENCOUNTER 2020-08-28 15:12 | Outpatient (CLI) | payer BC, SELFPAY ==
[2020-08-28 16:16] LABS: Alanine Aminotransferase 15 U/L (4-50); Albumin Level 4.2 g/dL (3.5-5.1); Alkaline Phosphatase 71 U/L (38-126); Anion Gap 7 mmol/L (8-16); Aspartate Amino Transferase 28 U/L (17-59); Bilirubin,Total 0.5 mg/dL (0.2-1.3); Blood Urea Nitrogen 11 mg/dL (9-20); Calcium 9.1 mg/dL (8.4-10.2); Carbon Dioxide 33 mmol/L (22-30); Chloride 97 mmol/L (98-107); Estimated Glomerular Filt Rate > 60; Glucose 150 mg/dL (75-110); Potassium 4.4 mmol/L (3.4-5.0); Sodium 137 mmol/L (137-145)
== END 2020-08-28 15:13 | disposition home or self-care (01) ==
LOC: ANHLAB 15:13
PROVIDERS: PCP Internal Medicine; Visit Provider Internal Medicine Cardiovascular Disease
DX: M79.606 Pain in leg, unspecified (principal); I74.9 Embolism and thrombosis of unspecified artery; Z01.810 Encounter for preprocedural cardiovascular examination
CPT/HCPCS: 36415; 80053

== ENCOUNTER 2020-11-28 16:57 | Outpatient (CLI) | payer BC, SELFPAY ==
[2020-11-28 17:22] LABS: Basophils Absolute Auto 0.1 K/mm3 (0.0-0.1); Basophils Percent Auto 0.6 % (0.2-1.2); Eosinophils Absolute Auto 0.2 K/mm3 (0-0.3); Eosinophils Percent Auto 2.9 % (0-4.4); Hematocrit 42.2 % (42.0-52.0); Hemoglobin 12.5 g/dL (14.0-18.0); Immature Granulocyte Absolute 0.05 K/mm3 (0.00-0.031); Immature Granulocyte Percent A 0.6 % (0-0.5); Lymphocytes Absolute Auto 1.67 K/mm3 (0.9-3.2); Lymphocytes Percent Auto 20.5 % (18.3-44.2); Mean Corpuscular HGB Conc 29.6 g/dl (32-36); Mean Corpuscular Hemoglobin 24.7 pg (26-34); Mean Corpuscular Volume 83.4 fl (80-100); Mean Platelet Volume 9.4 fl (7.4-10.4); Monocytes Absolute Auto 0.6 K/mm3 (0.1-0.6); Monocytes Percent Auto 7.7 % (2.6-8.5); Neutrophils Absolute Auto 5.5 K/mm3 (1.3-6.7); Neutrophils Percent Auto 67.7 % (45.5-73.1); Platelet Count Result 195 k/mm3 (150-375); Red Blood Count 5.06 M/mm3 (4.6-6.20); Red Cell Distribution Width 16.1 % (11.5-14.5); White Blood Count 8.2 K/mm3 (4.5-10.0)
[2020-11-28 18:24] LABS: Vitamin D 25 Hydroxy 52.3 ng/mL
[2020-11-28 18:39] LABS: Platelet Estimate Adequate (Adequate)
[2020-12-03 11:20] LABS: Vitamin B1 12 nmol/L (8-30)
[2020-12-03 14:51] LABS: Vitamin B6 19.1 ng/mL (2.1-21.7)
[2020-12-04 19:45] LABS: Vitamin B2 19.4 nmol/L (6.2-39.0)
== END 2020-11-28 16:58 | disposition home or self-care (01) ==
LOC: ANHLAB 17:02
PROVIDERS: PCP Internal Medicine; Visit Provider Internal Medicine Endocrinology, Diabetes & Metabolism
DX: E11.40 Type 2 diabetes mellitus with diabetic neuropathy, unspecified (principal); E55.9 Vitamin D deficiency, unspecified
CPT/HCPCS: 36415; 82306; 82607; 84207; 84252; 84425; 84443; 85025

== ENCOUNTER 2021-02-13 14:17 | Outpatient (CLI) | payer BC, SELFPAY ==
[2021-02-13 14:49] LABS: Blood Urea Nitrogen 15 mg/dL (9-20); Estimated Glomerular Filt Rate > 60
== END 2021-02-13 14:18 | disposition home or self-care (01) ==
LOC: ANHLAB 14:20
PROVIDERS: PCP Internal Medicine; Visit Provider Internal Medicine Cardiovascular Disease
DX: R06.00 Dyspnea, unspecified (principal); I51.7 Cardiomegaly
CPT/HCPCS: 36415; 82565; 84520

== ENCOUNTER 2021-02-23 07:45 | Outpatient (CLI) | payer BC, SELFPAY ==
--- NOTE | 2021-02-26 09:31 | WPDHOMESLEEP ---
Sleep Study - Home Unattended Date of Study: 02/23/21 <Darline Massey DO - Last Filed: 02/26/21 10:00> Ordering Provider: Mehran Wetzel MD <Darline Massey DO - Last Filed: 02/26/21 10:00> Interpreting Provider: Darline Massey DO <Darline Massey, DO - Last Filed: 02/26/21 10:00> Home Sleep Study Type: Apnea Link Air <Darline Massey DO - Last Filed: 02/26/21 10:00> Height: 1.8 m <Darline Massey DO - Last Filed: 02/26/21 10:00> Weight: 145.15 kg <Darline Massey DO - Last Filed: 02/26/21 10:00> Body Mass Index: 44.6 <Darline Massey DO - Last Filed: 02/26/21 10:00> Neck Circumference (inches): 20.5 <Darline Massey DO - Last Filed: 02/26/21 10:00> [place]: 8 <Darline Massey DO - Last Filed: 02/26/21 10:00> Reason for Sleep Study Previously diagnosed WILLIAM but not on PAP Therapy <Darline Massey DO - Last Filed: 02/26/21 10:00> Sleep History The patient is a 50-year-old male with hypertension, symptom a girl does well, type 2 diabetes, morbid obesity and previously diagnosed obstructive sleep apnea that had a sleep study ordered by his heel padder. . Patient states that he rarely sleeps through the night. In 2007, he had sleep apnea surgery in 2 sinus surgeries. Patient denies awakening sensations. He rarely awakens at night with heartburn, belching or coughing. He rarely snores and is never loud enough mother's complaint. He occasionally has trouble sleeping when he has a cold. He denies waking gasping for air throughout the night. He denies having breathing problems at night by others. He denies having heart palpitations or irregular heartbeats throughout the night. He rarely falls during the day and never while driving. He denies sleep paralysis and cataplexy. He occasionally experiences vivid dreamlike scenes upon awakening or falling asleep. His he occasionally has nightmares. He frequently has thoughts racing through his mind. He occasionally feels sad or depressed. He constantly feels anxious. He frequently notices arts of his body jerk. He rarely kicks during the night. He frequently has crawling and aching feelings in his legs and constantly has leg pain during the night. He rarely grinds his teeth during sleep and never awakens with morning jaw pain. He is constantly bothered by pain during the day and frequently awakened by pain during the night. He frequently wakes up feeling stiff in the morning with sore and achy muscles. The patient goes to bed at midnight on both weekdays and weekends. He can fall asleep within 5 minutes. He typically wakes up once per night. When he awakens, he will go out to chair, put a chew in and fall asleep. He will stay awake for at least 1 hour. He awakens at 6:00 a.m. on both weekdays and weekends. He typically gets 4-6 hours of sleep per night. He will typically stay in bed for a few minutes after awakening in the morning. He currently lives alone. He is not working currently. He does not consume any caffeinated beverages within 2 hours of bedtime. He does not engage in physical exercise before bedtime. He does not read or watch television before falling asleep. He does not take naps in the afternoon or the evening. The patient currently uses 1/4 can of smokeless tobacco daily for the past 36 years. He consumes 14 oz of caffeinated beverage daily. He denies alcohol and recreational drug use. <Darline Massey DO - Last Filed: 02/26/21 10:00> [facility] Past Medical History Medical History: Medical History (Updated 02/26/21 @ 09:55 by Darline Massey DO) Anxiety Diabetes Gas bloat syndrome GERD (gastroesophageal reflux disease) Hyperlipidemia Hypertension Obese WILLIAM (obstructive sleep apnea) <Darline Massey DO - Last Filed: 02/26/21 10:00> Surgical History Surgical History: Surgical History (Reviewed 02/26/21 @ 09:48 by Parminder
[2021-02-26 09:35] VITALS: BMI 44.6
== END 2021-02-24 15:50 | disposition home or self-care (01) ==
LOC: ANHCSM 07:50
PROVIDERS: Visit Provider Internal Medicine Cardiovascular Disease
DX: G47.30 Sleep apnea, unspecified (principal); G47.31 Primary central sleep apnea; G47.33 Obstructive sleep apnea (adult) (pediatric)
CPT/HCPCS: 95806

== ENCOUNTER 2021-03-26 07:55 | Outpatient (CLI) | payer BC, SELFPAY ==
--- NOTE | 2021-04-07 22:14 | WPDSLEEPSTUD ---
Sleep Study Date of Study: 03/26/21 <Darline Massey DO - Last Filed: 04/08/21 17:38> Ordering Provider: Mehran Wetzel MD <Darline Massey DO - Last Filed: 04/08/21 17:38> Interpreting Physician: Darline Massey DO <aDrline Massey, DO - Last Filed: 04/08/21 17:38> Sleep Study Type: CPAP Titration <Darline Massey DO - Last Filed: 04/08/21 17:38> Height: 1.82 m <Darline Massey DO - Last Filed: 04/08/21 17:38> Weight: 149.685 kg <Darline Massey DO - Last Filed: 04/08/21 17:38> Body Mass Index: 45.3 <Darline Massey DO - Last Filed: 04/08/21 17:38> Neck Circumference (inches): 19 <Darline Massey DO - Last Filed: 04/08/21 17:38> [place]: 5 <Darline Massey DO - Last Filed: 04/08/21 17:38> Reason for Sleep Study The patient had an HSAT on 02/23/2021 that showed an AHI of 29.4 and a central apnea index of 5.2. <Darline Massey DO - Last Filed: 04/08/21 17:38> Sleep History The patient is a 51-year-old male with hypertension,type 2 diabetes, morbid obesity and previously diagnosed obstructive sleep apnea that had a sleep study ordered by his children's attendant. . Patient states that he rarely sleeps through the night. In 2007, he had sleep apnea surgery in 2 sinus surgeries. Patient denies awakening sensations. He rarely awakens at night with heartburn, belching or coughing. He rarely snores and is never loud enough mother's complaint. He occasionally has trouble sleeping when he has a cold. He denies waking gasping for air throughout the night. He denies having breathing problems at night by others. He denies having heart palpitations or irregular heartbeats throughout the night. He rarely falls during the day and never while driving. He denies sleep paralysis and cataplexy. He occasionally experiences vivid dreamlike scenes upon awakening or falling asleep. His he occasionally has nightmares. He frequently has thoughts racing through his mind. He occasionally feels sad or depressed. He constantly feels anxious. He frequently notices arts of his body jerk. He rarely kicks during the night. He frequently has crawling and aching feelings in his legs and constantly has leg pain during the night. He rarely grinds his teeth during sleep and never awakens with morning jaw pain. He is constantly bothered by pain during the day and frequently awakened by pain during the night. He frequently wakes up feeling stiff in the morning with sore and achy muscles. The patient goes to bed at midnight on both weekdays and weekends. He can fall asleep within 5 minutes. He typically wakes up once per night. When he awakens, he will go out to chair, put a chew in and fall asleep. He will stay awake for at least 1 hour. He awakens at 6:00 a.m. on both weekdays and weekends. He typically gets 4-6 hours of sleep per night. He will typically stay in bed for a few minutes after awakening in the morning. He currently lives alone. He is not working currently. He does not consume any caffeinated beverages within 2 hours of bedtime. He does not engage in physical exercise before bedtime. He does not read or watch television before falling asleep. He does not take naps in the afternoon or the evening. The patient currently uses 1/4 can of smokeless tobacco daily for the past 36 years. He consumes 14 oz of caffeinated beverage daily. He denies alcohol and recreational drug use. <Darline Massey DO - Last Filed: 04/08/21 17:38> [facility] Past Medical History Medical History: Medical History Anxiety Diabetes Gas bloat syndrome GERD (gastroesophageal reflux disease) Hyperlipidemia Hypertension Obese WILLIAM (obstructive sleep apnea) <Darline Massey DO - Last Filed: 04/08/21 17:38> Surgical History Surgical History: Surgical History (Reviewed 04/07/21 @ 22:16 by El
[2021-04-08 17:35] VITALS: BMI 45.3
== END 2021-03-27 07:45 | disposition home or self-care (01) ==
LOC: ANHCSM 07:56
PROVIDERS: PCP Internal Medicine; Visit Provider Internal Medicine Cardiovascular Disease
DX: G47.33 Obstructive sleep apnea (adult) (pediatric) (principal)
CPT/HCPCS: 95811

== ENCOUNTER 2023-09-27 10:58 | Outpatient (CLI) | payer OTHER, SELFPAY ==
--- NOTE | ~2023-09-27 | XR_ITS ---
XR abdomen/kub 1V Ordering provider: TONY Larios History: . R19.4 - Change in bowel habit hx hernia repair . Comparison: March 23, 2020 FINDINGS: BOWEL: Nonobstructive bowel gas pattern. ORGANOMEGALY: None. SIGNIFICANT PATHOLOGIC CALCIFICATIONS: None. OTHER: A right hip arthroplasty. No free air is seen under the diaphragm. Stents are seen in the distal aorta and iliac arteries. IMPRESSION: NO ACUTE ABDOMINAL FINDINGS. Reviewed, dictated and finalized at location A.
== END 2023-09-27 10:59 | disposition home or self-care (01) ==
LOC: ANHIMG 11:02
PROVIDERS: PCP Internal Medicine; Visit Provider Nurse Practitioner Family
DX: K59.00 Constipation, unspecified (principal); K92.89 Other specified diseases of the digestive system; R10.9 Unspecified abdominal pain
CPT/HCPCS: 74018

== ENCOUNTER 2023-12-13 14:12 | Outpatient (CLI) | payer OTHER, SELFPAY ==
--- NOTE | ~2023-12-13 | CT_ITS ---
EXAMINATION: CT pelvis wo con DATE: 12/13/2023 14:37 INDICATION: Sacral pain TECHNIQUE: High resolution computed tomography (CT) of the pelvis was performed without intravenous c ontrast. Additional sagittal and coronal reconstructions were performed. Automated exposure control a nd iterative reconstruction technique were employed. The dose-length product was 651.24 mGy-cm. COMPARISON: None FINDINGS: Status post right total hip arthroplasty which is in near-anatomic alignment. There are multiple tiny heterotopic ossicles in the overlying right gluteal muscles and subcutaneous surgical scar. Addition al postoperative change of prior left inguinal hernia repair. Aortobiiliac stent which extends to the left common iliac bifurcation and proximal right external iliac artery. Mild lower lumbar spondylosi s. Moderate bilateral sacroiliac osteoarthritis. Mild left hip osteoarthritis. Visualized portions of bowels are unremarkable with normal appendix. Small fat-containing right inguinal hernia. The region of the bladder, prostate and seminal vesicles is largely obscured by metallic streak artifact from t he hip arthroplasty. No pathologically enlarged pelvic or inguinal lymphadenopathy. IMPRESSION: 1. Moderate bilateral sacroiliac osteoarthritis. No acute osseous abnormality. 2. Small fat-containing right inguinal hernia with prior left inguinal hernia repair. 3. Aortobiiliac stent graft and right total hip arthroplasty. Reviewed, dictated and finalized at location B. IMPRESSION: 1. Moderate bilateral sacroiliac osteoarthritis. No acute osseous abnormality. 2. Small fat-containing right inguinal hernia with prior left inguinal hernia r epair. 3. Aortobiiliac stent graft and right total hip arthroplasty.
== END 2023-12-13 14:13 | disposition home or self-care (01) ==
LOC: ANHIMG 14:21
PROVIDERS: PCP Internal Medicine; Visit Provider Internal Medicine
DX: M53.3 Sacrococcygeal disorders, not elsewhere classified (principal); K40.90 Unilateral inguinal hernia, without obstruction or gangrene, not specified as recurrent
CPT/HCPCS: 72192

== ENCOUNTER 2024-02-16 15:05 | Outpatient (CLI) | payer OTHER, SELFPAY ==
--- NOTE | ~2024-02-16 | XR_ITS ---
EXAMINATION: XR lumbar spine min 4V DATE: 02/16/2024 15:43 INDICATION: Lumbar degenerative disc disease. TECHNIQUE: 5 views of lumbar spine including standing views were obtained. COMPARISON: Lumbar spine radiographs 08/01/2012 FINDINGS: Bone alignment is normal. There is a compression fracture of T12 with 3/5 loss of height an d focal kyphosis. There is mildly decreased disc height at L4-L5 and L5-S1. There is multilevel sever e facet joint osteoarthritis. There are vascular stents in the abdomen and pelvis. There is a total r ight hip arthroplasty. IMPRESSION: 1. Mild lumbar spondylosis. Reviewed, dictated and finalized at location A. [employer] IMPRESSION: 1. Mild lumbar spondylosis.
--- NOTE | ~2024-02-16 | XR_ITS ---
EXAMINATION: XR thoracic spine 3V DATE: 02/16/2024 15:43 INDICATION: Lumbar degenerative disc disease. TECHNIQUE: 3 views of thoracic spine standing were obtained. COMPARISON: None. FINDINGS: There is 13 degrees dextroscoliosis of thoracic spine. There is a chronic compression fract ure of T12 with 3/5 loss of height and focal kyphosis. There is mildly decreased disc height at T5-T6 and T11-T12. There are endplate osteophytes at multiple levels. IMPRESSION: 1. Mild thoracic spondylosis. 2. Thoracic dextroscoliosis. Reviewed, dictated and finalized at location A. [facility] [employer]
== END 2024-02-16 15:06 | disposition home or self-care (01) ==
PROVIDERS: PCP Internal Medicine
DX: M53.3 Sacrococcygeal disorders, not elsewhere classified (principal); M51.369 Other intervertebral disc degeneration, lumbar region without mention of lumbar back pain or lower extremity pain; M47.894 Other spondylosis, thoracic region; M47.896 Other spondylosis, lumbar region
CPT/HCPCS: 72072; 72110

== ENCOUNTER 2024-06-15 00:41 | Day surgery (SDC) | payer OTHER, SELFPAY ==
[2024-06-05 09:49] VITALS: BMI 25.7
--- NOTE | 2024-06-08 10:39 | PC.NURSE ---
Spoke with patient regarding medication Eliquis. Patient verbalizes understanding that the last dose is to be taken on 06/12/2024 and the Endoscopist will instruct them when to restart after the procedure.
--- OUTSIDE RECORDS SUMMARY | 2024-06-15 00:44 | XMS_ITS | Data Portability ---
Author Organization [employer] [facility], [facility]) Address [address] [place] [address] Care Team Providers Care Tire Servicer Name Role Phone EBEN PHILLIP Primary Care Provider DEAN LUDWIG Operation Research Analyst Assessment Encounter Date Assessment Date Assessment LastModified by Organization Details LastModified Time 03/13/2021 03/13/2021 51 y/o with chronic venous insufficiency and CEAP grade 4 on the right and 4 on the left. VCSS score is 12. I am concerned that the symptoms may progress over time. Patients symptoms persist despite a trial of properly fitted gradient compression stockings f or2 y ears. Given the symptoms, I recommend lower extremity venous ultrasound I will discuss further treatment plans upon reviewing her ultrasound results. I spent a total of 60 minutes with the patient. The time was spent reviewing the chart discussing with patient tina Not available 03/18/2021 12:32:24 03/16/2021 03/16/2021 51-year-old male with a history of venous insufficiency, status post deep vein stenting, here due to lower extremity swelling and discoloration. Recent ultrasound shows evidence of venous insufficiency and GSV reflux. He has tried compression stockings for 2 years and he still has symptoms. I believe his symptoms will progress over time. Given his findings, I recommend vein closure. 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 We will plan this procedure after we discussed with his bellman captain. Treatment plan: Right leg - GSV closure with venaseal; Verithena treatment of GSV varicosities. Left leg - GSV closure with Venaseal; Varithena treatment of GSV varicosities. [email or web address] Not available 03/18/2021 13:09:24 Plan of Treatment Reminders Order Date Submit Date Provider Last Modified By Organization Details Last Modified Time Details Appointments None record ed. Lab None record ed. Referral None record ed. Procedures None record ed. Surgeries None record ed. Imaging None record ed. Medication Orders None record ed. Patient TargetsNo targets recorded. Patient InstructionsNo instructions recorded. Reason for Referral None Reported. Results Created Date Observation Date Name Description Value Unit Range Abnormal Flag Note LastModifiedBy Organization Detail LastModifiedTime 03/20/20 21 03/13/2021 US, doppl er, arter ial No observ ation record ed. [email or web address] Not Available 2020 09:43:53 03/20/20 21 03/13/2021 US, doppl er, venou s No observ ation record ed. [email or web address] Not Available 2020 09:43:07 Result Notes None recorded. Procedures Surgical History Date Name Laterality Status Provider Name and Address Organization Details Recorded Time 021 OA LE Quantiflow study completed Brandy Lizy [place] [facility] 03/13/2021 11:47:01 021 OALEVenous[place] [address], [id number] [place] [facility] 03/18/2021 12:34:42 018 Vein Stripping completed Brandy Lizy [place] [facility] and 03/13/2021 11:41:17 016 Other completed Brandy Lizy [place] [facility] 03/13/2021 11:41:17 015 Other completed Brandy Lizy [place] [facility] 03/13/2021 11:41:17 014 Other completed Brandy Lizy [place] [facility] 03/13/2021 11:41:17 010 Other completed Brandy Lizy [place] [facility] 03/13/2021 11:41:17 002 Other completed Brandy PENA - [facility] 03/13/2021 11:41:17 999 Other completed Brandy PENA - [facility] 03/13/2021 11:41:17 989 Other completed Brandy PENA - [facility] 03/13/2021 11:41:17 988 Other completed Brandy PENA - [facility] and 03/13/2021 11:41:17 Imaging Results Imaging Date Name Status LastModified by Organiz ation Details LastModified Time 03/13/2021 US, doppler, arterial completed Information not available 03/23/2021 09:43:53 03/13/2021 US, doppler, venous completed Information not available 03/23/2021 09:43:07 Procedure Notes None recorded. Medical Equipment None Reported. Allergies Allergen ID Allergen Name Allergen Category Reaction Reaction Severity Criticality Documentation Date Start Date Code Code System Note Provider Name and Address Organization Details Recorded Time 3680 azathiopr ine medicatio n other Not available Not available 03/13/2021 1256 RxNorm GI Upset Kenia martinez[place] [facility] 11:50:18 3681 cefixime medicatio n nausea Not available Not available 03/13/2021 08458 RxNorm Kenia Mcdonald [place] [facility] 11:49:41 3682 meperidin e medicatio n other Not available Not available 03/13/2021 6754 RxNorm Kenia Mcdonald [place] [facility] 11:50:32 3683 metformin medicatio n other Not available Not available 03/13/2021 6809 RxNorm GI Upset Kenia Mcdonald [place] [facility] and 11:50:47 3684 nickel environme nt rash Not available Not available 03/13/2021 00317 29 RxNorm Kenia martinez[place] [facility] 11:50:59 3685 prednison e medicatio n other Not available Not available 03/13/2021 8640 RxNorm Kenia martinez[place] [facility] 11:51:13 3686 Substance with sulfonami de structure and antibacte rial mechanism of action (substanc e) medicatio n nausea Not available Not available 03/13/2021 78785 8003 SNOMED Kenia martinez[place] [facility] 11:51:27 3687 adhesive tape environme nt,medica tion rash Not available Not available 03/13/2021 74045 UNK Kenia martinez[place] [facility] 11:51:48 3688 vancomyci n medicatio n other Not available Not available 03/13/2021 46814 RxNorm Kidne y Failu re Kenia martinez[place] [facility] and 11:52:17 Medications Name Sig Start Date Stop Date Status Note LastModified by Organization Details LastModified Time losartan 50 mg tablet TAKE 1 TABLET BY MOUTH DAILY active Not Available Not Available No t Available amoxicillin 500 mg capsule active Not Available Not Available Not Available furosemide 40 mg tablet TAKE 1 TABLET BY MOUTH DAILY active Not Available Not Available No t Available rabeprazole 20 mg tablet,joanie yed release active Not Available Not Available Not Available ketoconazol e 2 % shampoo active Not Available Not Available Not Available alprazolam 1 mg tablet active Not Available Not Available Not Available metoprolol tartrate 100 mg tablet 01/30 completed Not Available Not Available Not Available tizanidine 4 mg tablet TAKE ONE TABLET BY MOUTH FOUR TIMES DAILY active Not Available Not Available No t Available fluconazole 150 mg tablet active Not Available Not Available Not Available methadone 10 mg tablet active Not Available Not Available Not Available Anucort-HC 25 mg suppository INSERT 1 SUPPOSITO RY RECTALLY TWICE A DAY NEEDED active Not Available Not Available No t Available diphenoxyla te-atropine 2.5 mg-0.025 mg tablet active Not Available Not Available Not Available triamcinolo ne acetonide 0.1 % topical cream active Not Available Not Available Not Available spironolact one 25 mg tablet TAKE 1 TABLET BY MOUTH DAILY active Not Available Not Available No t Available oxycodone 15 mg tablet active Not Available Not Available Not Available nortriptyli ne 25 mg capsule active Not Available Not Available Not Available tamsulosin 0.4 mg capsule TAKE ONE CAPSULE BY MOUTH TWICE DAILY active Not Available Not Available No t Available montelukast 10 mg tablet TAKE 1 TABLET BY MOUTH EVERY DAY AT BEDTIME active Not Available Not Available No t Available ergocalcife rol (vitamin D2) 1,250 mcg (50,000 unit) capsule TAKE ONE CAPSULE BY MOUTH ONCE WEEKLY active Not Available Not Available No t Available testosteron e cypionate 200 mg/mL intramuscul ar oil INJECT 0.5ML IN THE MUSCLE EVERY OTHER WEEK. DISCARD VIAL AFTER USE active Not Available Not Available No t Available doxycycline hyclate 20 mg tablet active Not Available Not Available No t Available methadone 5 mg tablet active Not Available Not Available No t Available dicyclomine 10 mg capsule active Not Available Not Available Not Available amoxicillin 875 mg-potassiu m clavulanate 125 mg tablet 01/30 completed Not Available Not Available Not Available neomycin 3.5 mg/g-polymy shanta B 10,000 unit/g-dexa meth 0.1 % eye oint active Not Available Not Available Not Available clindamycin 1 % lotion active Not Available Not Available N ot Available duloxetine 60 mg capsule,del ayed release TAKE ONE CAPSULE BY MOUTH DAILY active Not Available Not Available No t Available metronidazo le 1 % topical gel active Not Available Not Available Not Available pregabalin 200 mg capsule TAKE ONE CAPSULE BY MOUTH THREE TIMES DAILY FOR PAIN GENERIC EQUIVALEN T FOR LYRICA active Not Available Not Available No t Available Januvia 100 mg tablet TAKE 1 TABLET BY MOUTH DAILY active Not Available Not Available No t Available testosteron e 20.25 mg/1.25 gram per pump act.(1.62 %) transdermal gel USE 3 PUMPS ON SKIN DAILY. GENERIC EQUIVALEN T FOR ANDROGEL active Not Available Not Available No t Available OneTouch Verio test strips active Not Available Not Available Not Available Combivent Respimat 20 mcg-100 mcg/actuati on solution for inhalation active Not Available Not Available N ot Available Eliquis 5 mg tablet TAKE 1 TABLET BY MOUTH TWICE DAILY active Not Available Not Available No t Available Jardiance 10 mg tablet TAKE 1 TABLET BY MOUTH EVERY MORNING 01/30 completed Not Available Not Available Not Available Narcan 4 mg/actuatio n nasal spray active Not Available Not Available Not Available COVID-19 test specimen collection TEST DIRECTED active Not Available Not Available No t Available Vitals Date Recorded Body height Body mass index (BMI) Body weight Provider Name and Address Organization Details Last Updated DateTime 03/13/2021 182.88 cm 44.8 kg/m2 266988.48 g Brandy Medel [facility] and 03/13/2021 11:40:52 Social History Question Answer Notes LastModified by Organizat ion Details LastModified Time Tobacco Smoking Status Current Every Day Smoker Crew tabacco Brandy Medel [facility], [facility] [employer] [facility] and 03/13/2021 11:45:16 What Is Your Level Of Alcohol Consumption? None Information not available 03/13/2021 Which Illicit Or Recreational Drugs Have You Used? None [email or web address] Information not available 03/13/2021 What Is The Highest Grade Or Level Of School You Have Completed Or The Highest Degree You Have Received? [id number] [email or web address] Information not available 03/13/2021 What Is Your Occupation? Disabled [email or web address] Information not available 03/13/2021 What Was The Date Of Your Most Recent Tobacco Screening? 03/13/2021 [email or web address] Information not available 03/13/2021 How Much Tobacco Do You Smoke? 0.5 PPD [email or web address] Information not available 03/13/2021 How Many Years Have You Smoked Tobacco? 36 [email or web address] Information not available 03/13/2021 Do You Or Have You Ever Used Any Other Forms Of Tobacco Or Nicotine? No [email or web address] Information not available 03/13/2021 Sex: Unknown Functional Status None recorded. Mental Status None recorded. Family History Relationship Description Onset Age of this Age Resolved Age Notes LastModified by Organization Details LastModified Time Father Diabetes mellitus pt. added direct ly (01/30) [email or web address] Not available 01/30/2021 18:21:26 Father Heart disease pt. added direct ly (01/30) [email or web address] Not available 01/30/2021 18:21:32 Father Myocardial infarction pt. added direct ly (01/30) [email or web address] Not available 01/30/2021 18:21:45 Paternal Grandfather Malignant neoplastic disease pt. added direct ly (01/30) [email or web address] Not available 01/30/2021 18:22:02 Paternal Grandfather Diabetes mellitus pt. added direct ly (01/30) [email or web address] Not available 01/30/2021 18:22:48 Maternal Grandmother Malignant neoplastic disease pt. added direct ly (01/30) [email or web address] Not available 01/30/2021 18:22:20 Medical History Condition Response Anticoagulation therapy N Anxiety Disorder Y Varicose Veins N Diabetes Y Coronary Artery Disease N Bleeding Disorder N Hyperlipidemia N Cancer N Stroke N Asthma N COPD N Clotting Disorder N Anemia Y Neurologic Disorder Y Hepatitis N Genitourinary Disease N Gastrointestinal Disease Y Ulcers N Heart Disease N Pulmonary Embolism Y Deep Vein Thrombosis Y Hypertension Y Kidney Disease N Past Encounters Encounter ID Performer Location Encounter Start Date Encounter Closed Date Diagnosis/Indication Diagnosis SNOMED-CT Code Diagnosis ICD10 Code Diagnosis Note [id number] Jayce Sutton MD [address] [address] 03/13/2021 11:31:37 03/18/2021 17:22:18 Varicose veins of lower extremity 39979703 I83.893 Primary ve nous insufficiency of leg 695082609 I87.2 [id number] Jayce Sutton MD [facility] [address] [facility], [facility] ,[facility] ( [place] [address] 03/16/2021 10:24:11 03/18/2021 16:44:28 Varicose veins of lower extremity 74213218 I83.893 Edema of l ower extremity 350031174 R60.0 Health Concerns Section Related Observation LastModified by Organization Detai ls LastModified Time None Recorded Concern Status LastModified by Organization Details LastModified Time None Recorded Advance Directives Directive None Recorded Payers Encounter Date Sequence Insurance Name Policy Number Policy Jasmine Covered Member ID Jasmine Member ID Guarantor Name 03/13/2021 1 [place] [id number] Александр Phillip [id number] Jesus Phillip 03/16/2021 1 [place] [id number] Tojimmy Phillip [id number] Jesus Phillip Notes Date Note Type Note Provider Name and Address Organization Details Recorded Time 1 text/html Arterial Occlusive Disease: Lower ExtremityReported bypatient.Location:[facility] Quality:cramping; aching; tingling Severity:moderate Onset/Timing:continuous Context:tobacco use Associated Symptoms:no numbness; no skin discolorationVaricose Vein or Venous insufficiencyReported bypatient.Location:[facility] Quality:aching;stabbing;th robbing;frequent; worsening Associated Symptoms:no redness; no ecchymosis; no drainage; no rash; no itching; no heaviness; no fever; no chills; no warmth;numbness;tingling;s welling;throbbing;discolor ation Alleviating Factors:elevation Aggravating Factors:cannot identify As related to {{his* her}} venous disease, patient reports {{burning aching* swelling itching cramping}} {{and burning and aching and swelling and itching and cramping*}} { {during activity after prolonged standing during activity and prolonged standing*}}.Patient {{endorses* denies}} prior use of compression stockings.{{Patients symptoms persist despite a trial of properly fitted gradient compression stockings*}}for {{1 2* 3 4 5 6 7 8 9 10 11 12}} { {months weeks years* month week year}} [place] [address], [address], [facility] 03/18/2021 12:35:00 1 text/html 51-year-old male with venous insufficiency, who has intravenous stents placed in his iliac veins. He had an ultrasound performed on Tuesday and we were discussing the results. Recent ultrasound [place] [address], [address], [facility] 03/18/2021 13:11:37
--- OUTSIDE RECORDS SUMMARY | 2024-06-15 00:44 | XMS_ITS | Referral Summary ---
Author Organization [facility] al Address [address] [place] [address] Care Team Providers Care Mine Inspector Federal Name Role Phone Boris Laws MD Primary Care Provider Janet Thomas MD Unavailable [phone] Sherie Ocasio MD Unavailable [phone] Celso Martinez MD Unavailable [phone] Stephen Lopez MD Unavailable Michel Atkins MD Unavailable [phone] Chao Smallwood MD Unavailable + [phone] Chao Smallwood MD Unavailable + [phone] Encounters Date Type Department Care Team Description 05/04/2024 Telephone [facility] Met[facility] Lip[facility] [address] [facility] 13th [place] [address] [place] [address] Tricia Ricks RN 05/04/2024 1:34 PM DRY CLEANING MACHINE OPERATOR - 05/04/2024 11:59 PM DRY CLEANING MACHINE OPERATOR Hospital Encounter [facility] [address] [place] [address] Coccyx pain Discharge Disposition: Discharge to home or self care 05/02/2024 Telephone [facility] Met[facility]id [address] [facility] 13th [place] [address] [place] [phone] Dayanara Kitchen RN syringe order 04/26/2024 Orders Only [facility] Met[facility] Lip[facility] [address] [facility] 13th [place] [address] [place] [phone] Janet Thomas MD Male hypogonadism; Deficiency of testosterone biosynthesis 04/24/2024 9:00 AM DRY CLEANING MACHINE OPERATOR Office Visit [facility] [address] [facility] 5th Floor [address] [place] [phone] Gianni Montoya MD PhD Coccyx pain (Primary Dx); Gouty arthritis 04/03/2024 2:00 PM DRY CLEANING MACHINE OPERATOR Office Visit [facility] [address] [facility] [address] [place] [address] Salas Steele MD Nontraumatic coccydynia (Primary Dx); Pilonidal cyst; Other constipation; Grade II hemorrhoids 03/22/2024 Telephone [facility] Metabolism [facility] Lipid [address] [facility] 13th [place] [address] [place] [address] Rylee Clinton RMA Prior Auth (Testosterone Cypionate 200mg/ml Solution) 03/19/2024 Orders Only [facility] Metabolism [facility] Lipid [address] [facility] 13th [place] [address] [place] [phone] Janet Thomas MD from Last 3 Months Allergies Active Allergy Reactions Criticality Noted Date Comments Adhesive Rash Medium Adhesive Tape-Silicones Rash Medium 12/22/2018 Azathioprine Stomach upset Low Cefixime Nausea And Vomiting 03/04/2003 Metformin Stomach upset Low Nickel Rash Medium 01/15/2013 Prednisone Unknown 11/09/2010 Sulfasalazine Nausea And Vomiting 03/04/2003 Vancomycin Unknown,Other (See comments) High 03/05/2013 Kidney failure Kidney failure Reaction: Other Kidney failure Kidney failure Kidney failure Kidney failure Zolmitriptan Other (See comments) Low 12/09/2015 Medications pregabalin (LYRICA) 200 mg capsuleIndicati ons:Diabetic Peripheral Neuropathy,Fibr omyalgia Take 1 capsule (200 mg total) by mouth daily Active calcium citrate-vitamin D3 200 mg calcium -250 unit tabletIndicatio ns:Prevention of Vitamin D Deficiency Take 1 tablet by mouth every morning Active methadone (DOLOPHINE) 10 mg tabletIndicatio ns:severe chronic pain requiring long-term opioid treatment Take 1 tablet by mouth 3 (three) times a day Indications: severe chronic pain requiring long-term opioid treatment Active apixaban (ELIQUIS) 5 mg tabletIndicatio ns:Venous Thrombosis Take 1 tablet (5 mg total) by mouth 2 (two) times a day 018 Active amoxicillin 500 mg capsule Take 1 tablet/capsule (500 mg total) by mouth For Dental procedures 021 Active naloxone (Narcan) 4 mg/actuation spray,non-aeros ol daily as needed 021 Active ergocalciferol (Vitamin D2) 50,000 unit capsuleIndicati ons:Vitamin D Deficiency Take 1 capsule (50,000 Units total) by mouth once a week Take on Tuesdays 12 capsule 3 022 Active spironolactone (ALDACTONE) 25 mg tabletIndicatio ns:hypertension Take 1 tablet (25 mg total) by mouth every morning 90 tablet 022 Active amLODIPine (NORVASC) 5 mg tablet 023 Active blood-glucose meter miscIndications :Type 2 diabetes mellitus with diabetic neuropathy, without long-term current use of insulin ([facility]) Use the Contour Next Gen Glucose meter as directed to test blood sugar. 1 each 023 Active ferrous gluconate 324 mg (37.5 mg of elemental iron) tablet daily 023 Active lancets (Microlet Lancet) miscIndications :Type 2 diabetes mellitus with diabetic neuropathy, without long-term current use of insulin ([facility]) USE 1 LANCET DAILY TO TEST BLOOD SUGAR 100 each 3 024 Active blood glucose diagnostic (Contour Next Test Strips) stripIndication s:Type 2 diabetes mellitus with diabetic neuropathy, without long-term current use of insulin ([facility]) CHECK BLOOD SUGAR ONCE DAILY 100 strip 3 024 Active allopurinoL (ZYLOPRIM) 300 mg tablet Take 1 tablet (300 mg total) by mouth daily 024 Active hydroCHLOROthia zide 12.5 mg tablet Take 1 tablet (12.5 mg total) by mouth inventory clerk before breakfast 024 Active lecithin, soy 1,200 mg capsule Active TURMERIC ORAL Take by mouth Patient is taking 1500 mg daily in the afternoon. Active psyllium, aspartame, SF (METAMUCIL SF) 3.4 gram packet Take 1 packet by mouth daily Active alpha lipoic acid 600 mg capsule Take 1 capsule (600 mg total) by mouth daily Active testosterone cypionate (DEPO-TESTOTERO NE) 200 mg/mL injectionIndica tions:Male hypogonadism,De ficiency of testosterone biosynthesis Inject 0.5 mL (100 mg total) into the muscle as instructed every 14 (fourteen) days 3 mL 1 025 Active syringe with needle (BD Luer-Charlie Syringe) 3 mL 21 gauge x 1 03/29 syringeIndicati ons:Male hypogonadism,De ficiency of testosterone biosynthesis Use one every 14 days with testosterone. 10 each 3 025 Active Mounjaro 5 mg/0.5 mL pen injector injectionIndica tions:Type 2 diabetes mellitus with diabetic neuropathy, without long-term current use of insulin ([facility]) INJECT THE CONTENTS OF ONE PEN SUBCUTANEOUSLY WEEKLY DIRECTED 6 mL 3 025 Active tirzepatide (Mounjaro) 5 mg/0.5 mL pen injectorIndicat ions:Type 2 diabetes mellitus with diabetic neuropathy, without long-term current use of insulin ([facility]) Inject 5 mg under the skin every 7 days 6 mL 3 024 2024 Discontinued Active Problems Problem Noted Date Diagnosed Date Gouty arthritis 04/24/2024 Coccyx pain 04/24/2024 COVID-19 08/05/2021 Has immunity to COVID-19 virus 07/08/2021 Overview (08/06/2021): Moderna vaccine x 2; COVID 08/05/21 Assessment & Plan (05/10/2022 7:40 AM DRY CLEANING MACHINE OPERATOR): Fully vaccinated, Hx COVID; eligible for booster. External hemorrhoids 10/22/2020 Pain of lower extremity 08/06/2020 Overview (08/06/2020): Added automatically from request for surgery [id number] Male hypogonadism 07/04/2019 Overview (07/22/2020): Managed by his urologist. Also has BPH 02/18/20: Free T 3.8 (very low) Assessment & Plan (11/13/2023 4:35 PM CDT): Doing well, but recent polycythemia. Testosterone dose just recently decreased. 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 Plan to recheck his labs in about 90 days. Assessment & Plan (11/10/2022 3:46 PM CDT): -He has been prescribed Xyosted 100 mg/0.5 ml which he takes weekly -He has been out 3 weeks due to ordering issues -Will clarify with Dr. Thomas and the PA team to get this corrected Assessment & Plan (10/22/2020 4:26 PM CDT): Energy level good. Managed by his urologist. Assessment & Plan (07/22/2020 3:56 PM CDT): Managed by his urologist. Also has history of BPH. Assessment & Plan (01/16/2020 7:33 AM CDT): Managed by his urologist, but therapy complicated by gynecomastia. Awaiting follow-up lab work which he will get drawn soon. He may benefit from anastrozole therapy to minimize conversion to estrone. 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 Will obtain Lexiscan nuclear stress test to rule out ischemia as possible etiology. Patient does have mild pulmonary hypertension, he is morbidly obese, deconditioning and these all could be contributing to his shortness of breath as well. Chronic anemia 09/19/2017 Morbid obesity with body mass index of 40.0-49.9 05/12/2017 Assessment & Plan (09/27/2017 11:33 AM CDT): I advised patient about diet modification to help him lose weight. He is sedentary and not physically active. Secondary hypercoagulable state 05/12/2017 Tobacco use 05/12/2017 Nephrolithiasis 03/01/2017 Assessment & Plan (10/22/2020 4:26 PM CDT): Clinically stable, monitoring vitamin-D Dribbling of urine 02/14/2017 Hematuria 02/14/2017 Venous insufficiency 02/10/2017 Leg pain 02/10/2017 History of photorefractive keratectomy (PRK) Allergic rhinitis 04/13/2016 Gastroesophageal reflux disease 04/13/2016 Hypertension 04/13/2016 Reflex sympathetic dystrophy 12/09/2015 Assessment & Plan (12/15/2018 2:02 PM CDT): May affect activity, need to minimize risk of hypoglycemia Type 2 diabetes mellitus with neurologic complic ation 12/09/2015 Assessment & Plan (11/13/2023 4:33 PM CDT): Doing fantastic with current meds, diet and lifestyle. Assessment & Plan (11/10/2022 3:45 PM CDT): -Currently taking Trulicity -A1C on 11/10/22 was 5.3% -Will continue with same Trulicity dose and continued lifestyle modifications- Advised to call with any concerns/complaints regarding glucose readings -Eye exam is up to date -Foot care discussed Assessment & Plan (05/12/2022 2:30 PM DRY CLEANING MACHINE OPERATOR): Glucoses a little on the high side, but he is working with diet and lifestyle. He should improve with at least a low dose of Trulicity to help reach metabolic balance Assessment & Plan (10/22/2020 4:25 PM CDT): Clinically markedly improved, losing weight with good diet and lifestyle. Neuropathy significantly improved with low-dose nortriptyline. Assessment & Plan (07/22/2020 3:58 PM CDT): Historically glucoses within a good margin of safety, but needs some follow-up labs. With his neuropathy, he may benefit from a low-dose TCA the bedtime, which may also help some of his sleep issues which secondarily will help with weight and glycemic control. Assessment & Plan (01/16/2020 7:33 AM CDT): Glucoses within a reasonable margin of safety Assessment & Plan (07/04/2019 2:38 PM CDT): Clinically stable, glucoses within a good range historically but needs follow-up labs including A1c level Assessment & Plan (12/15/2018 2:03 PM CDT): Glucoses now within a good margin of safety. Needs to check more often, however Assessment & Plan (12/29/2017 7:30 AM CDT): Glucoses within a good margin of safety, but needs to check more often. Continue current management, for now Iron deficiency anemia 01/08/2015 Assessment & Plan (11/10/2022 3:46 PM CDT): -Will be starting iron infusions Benign essential hypertension 11/15/2014 Assessment & Plan (11/10/2022 3:46 PM CDT): -BP today is 112/81 -Will continue same antihypertensive medications at this time. Assessment & Plan (12/29/2017 7:27 AM CDT): Blood pressure within target Assessment & Plan (09/27/2017 11:31 AM CDT): Elevated blood pressure. Add Aldactone 25 mg daily, Cozaar 50 mg daily. Will discontinue Norvasc. Obstructive sleep apnea syndrome 11/15/2014 Benign prostatic hyperplasia 11/15/2014 Assessment & Plan (11/13/2023 4:35 PM CDT): No current Sx and followed by his urologist. Rheumatoid arthritis involving multiple sites Fibromyalgia 02/20/2014 Insomnia 02/20/2014 Standard chest x-ray abnormal 02/13/2014 Disorder of lung 01/03/2014 Arthralgia of hip 07/18/2013 Edema of lower extremity 04/30/2013 Assessment & Plan (09/27/2017 11:33 AM CDT): Will discontinue Norvasc to rule out Norvasc as possible contributing factor. Likely venous insufficiency. Will add Aldactone as well to control blood pressure might help with reducing the edema. Advised patient to use compression stockings. If these conservative measures do not provide help then will refer for vascular surgery for further evaluation. Need for prophylactic antibiotic 04/11/2013 Thromboembolic disorder 01/15/2013 Assessment & Plan (09/27/2017 11:31 AM CDT): Continue Eliquis Mixed hyperlipidemia 04/18/2012 Assessment & Plan (11/13/2023 4:35 PM CDT): Not currently on statin, but has multiple medication sensitivities. For now, we will work on optimal glycemic control Assessment & Plan (05/12/2022 2:30 PM DRY CLEANING MACHINE OPERATOR): Not currently on statin, but has multiple medication sensitivities. For now, we will work on optimal glycemic control Assessment & Plan (10/22/2020 4:26 PM CDT): Not currently on statin, but has multiple medication sensitivities. For now, we will work on optimal glycemic control Assessment & Plan (07/22/2020 3:59 PM CDT): Not currently on statin, but has multiple medication sensitivities. For now, we will work on optimal glycemic control Assessment & Plan (07/04/2019 2:37 PM CDT): Continue statin, recheck levels Assessment & Plan (12/29/2017 7:29 AM CDT): Consider statin once other medical conditions are stabilized. 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 Vitamin D deficiency 11/17/2011 Assessment & Plan (11/13/2023 4:33 PM CDT): Continue chronic supplement, maintaining a reasonable level given his history of nephrolithiasis Assessment & Plan (05/12/2022 2:30 PM DRY CLEANING MACHINE OPERATOR): Continue chronic supplement, maintaining a reasonable level given his history of nephrolithiasis Assessment & Plan (10/22/2020 4:26 PM CDT): Continue chronic supplement, maintaining a reasonable level given his history of nephrolithiasis Assessment & Plan (07/22/2020 3:57 PM CDT): Continue long-term supplement Assessment & Plan (01/16/2020 7:33 AM CDT): Continuing supplementation. Awaiting follow-up labs Assessment & Plan (07/04/2019 2:37 PM CDT): Continue supplement, recheck level Assessment & Plan (12/15/2018 2:03 PM CDT): Continue chronic supplement Assessment & Plan (12/29/2017 7:30 AM CDT): Continue supplement, recheck level Osteoporosis 11/09/2011 Overview (01/16/2020): Citical daily, Ergo weekly HX: Reclast 2016, 2013 and 2013, teriparatide with side effects. HX: fractures - left tibia, right fibula, right wrist, T12. Avascular necrosis of the right hip which has been replaced Considering tooth implants DEXA 12/20/2019: T-score hip -1.8 Assessment & Plan (01/16/2020 7:30 AM CDT): DEXA 12/20/2019: T-score hip -1.8 Also exacerbated by hypogonadism. On vitamin-D supplementation. Assessment & Plan (12/29/2017 7:30 AM CDT): Needs follow-up vitamin-D level. Ongoing care by Dr. Downing Asthma 10/04/2011 Irritable bowel syndrome 10/04/2011 Osteoarthritis of hip 12/16/2010 Autoimmune disease 07/26/2010 Assessment & Plan (11/13/2023 4:36 PM CDT): Ongoing surveillance Fatty liver Overview (05/10/2022): Fibrosis-4 (FIB-4) Calculator: 1.2 at 05/10/2022 7:42 AM Calculated from: SGOT/AST: 15 U/L at 08/04/2021 12:00 AM SGPT/ALT: 16 U/L at 08/04/2021 12:00 AM Platelets: 166 Thousand/uL at 08/04/2021 12:00 AM Age: 52 years Assessment & Plan (05/12/2022 2:29 PM DRY CLEANING MACHINE OPERATOR): Needs optimal glycemic control. Fib-4 index shows low risk for fibrosis Immunizations Immunization Administration Dates Next Due Influenza, Quadrivalent, Fatimah l Culture-based MDCK, Preservative Free, Antibiotic Free, Intramuscular 01/07/2021,12/27/2017 Influenza, Quadrivalent, Hig h Dose, Preservative Free, Intrr 01/18/2022 Influenza, Quadrivalent, Rec ombinant, Egg Free, Preservative Free, Intramuscular 02/08/2019,02/08/2019 Influenza, Quadrivalent, Spl it, Preservative Free, Intramuscular 02/02/2022,01/25/2020,01/25/2020,03/29,03/29/2017,04/05/2016,04/05/2016 Influenza, Trivalent, Preser vative Free, Intramuscular 12/29/2016,04/18/2015,02/13/2014 Influenza, Unspecified 02/02/2022,2020,01/25/2020,12/27,03/29/2017,12/29/2016,04/05/2016 ,04/18/2015,02/13/2014 Moderna SARS-CoV-2 Monovalen t Vaccination (12+ YRS) 11/20/2020,10/23/2020 Pneumococcal Conjugate PCV 13 09/08/2016 Pneumococcal Conjugate Pcv20 02/12/2022 Social History Tobacco Use Types Packs/Day Years Used Date Smoking Tobacco: Never Smokeless Tobacco: Current Chew Tobacco Cessation:Ready to Q uit: Not Asked; Counseling Given: Not Answered Comments:Started 34 years ago (14 years old). One can per day. Alcohol Use Standard Drinks/Week Comments Not Currently 12 (1 standard drink = 0.6 oz pu re alcohol) Quit Drinking 1997 Social Connection and Isolat ion Panel [NHANES] Answer Date Recorded In a typical week, how many times do you talk on the phone with family, friends, or neighbors? More than three times a week 08/10/2021 How often do you get togethe r with friends or relatives? Once a week 08/10/2021 How often do you attend chur or confucianism services? Never 08/10/2021 Do you belong to any clubs o r organizations such as adventism groups, unions, fraternal or athletic groups, or school groups? No 08/10/2021 How often do you attend meet ings of the clubs or organizations you belong to? Never 08/10/2021 Are you , , di vorced, , never , or living with a partner? 08/10/2021 AUDIT-C Answer Date Recorded Q1: How often do you have a drink containing alc ohol? Never 03/19/2021 Average Number of Drinks Not on file Frequency of Binge Drinking Not on file 02/26 Overall Financial Resource Strain (CARDIA) Answe r Date Recorded How hard is it for you to pa y for the very basics like food, housing, medical care, and heating? Not hard at all 08/10/2021 PRAPARE - Transportation Answer Date Re corded In the past 12 months, has l ack of transportation kept you from medical appointments or from getting medications? No 07/26 In the past 12 months, has l ack of transportation kept you from meetings, work, or from getting things needed for daily living? No 08/10/2021 Housing Stability Vital Sign Answer Michael e Recorded In the last 12 months, was t here a time when you were not able to pay the mortgage or rent on time? No 08/10/2021 In the last 12 months, how many places have you lived? 1 08/10/2021 In the last 12 months, was t here a time when you did not have a steady place to sleep or slept in a chcf (including now)? No 08/10/2021 Sex and Gender Information Value Date Recorded Sex Assigned at Not on file Legal Sex Male 2:25 AM DRY CLEANING MACHINE OPERATOR Gender Identity Male 02/03/2018 3:01 PM DRY CLEANING MACHINE OPERATOR Sexual Orientation Straight 08/11/2018 6: 30 AM CDT Last Filed Vital Signs Vital Sign Reading Time Taken Comments Blood Pressure 145/74 04/24/2024 9:08 AM DRY CLEANING MACHINE OPERATOR Pulse 81 04/24/2024 9:08 AM DRY CLEANING MACHINE OPERATOR Temperature 36.5 C (97.7 F) 04/03/2024 1:36 PM DRY CLEANING MACHINE OPERATOR Respiratory Rate 18 04/03/2024 1:36 PM DRY CLEANING MACHINE OPERATOR Oxygen Saturation 99% 04/24/2024 9:08 AM DRY CLEANING MACHINE OPERATOR Inhaled Oxygen Concentration - - Weight 91.2 kg (201 lb) 04/24/2024 9:08 AM DRY CLEANING MACHINE OPERATOR Height 182.9 cm (6' 0.01 ) 04/24/2024 9:08 AM CS T Body Mass Index 27.25 04/24/2024 9:08 AM DRY CLEANING MACHINE OPERATOR Plan of Treatment Not on file Medical Devices Implanted Type Area Art Gallery Internship Device Identifier Shelf Expiration Date Model / Serial / Lot Joint Replacement Right: Hip [employer] [id number] Stent Venous Wall [id number] - [id number] Implanted:Qty: 1 on 09/19/2020 by Mehran Wetzel MD at [facility] 07/16/2022 [id number] / / [id number] [employer] [facility] [id number] Stent Venous Wall [id number] - [id number] Implanted:Qty: 1 on 09/19/2020 by Mehran Wetzel MD at [facility] 07/08/2022 [id number] / / [id number] Procedures Procedure Name Priority Date/Time Associated Diagnosis Comments CT SACRUM COCCYX WO CONTRAST Schedule Routine, Read Routine (OP Routine) 05/04/2024 2:13 PM DRY CLEANING MACHINE OPERATOR Coccyx pain CRP (ACUTE PHASE) Routine 05/03/2024 9:1 0 AM DRY CLEANING MACHINE OPERATOR URIC ACID Routine 05/03/2024 9:10 AM DRY CLEANING MACHINE OPERATOR Gouty arthritis Coccyx pain RHEUMATOID FACTOR Routine 05/03/2024 9:1 0 AM DRY CLEANING MACHINE OPERATOR Gouty arthritis Coccyx pain ERYTHROCYTE SEDIMENTATION RATE Routine 05/03/2024 9:10 AM DRY CLEANING MACHINE OPERATOR Gouty arthritis Coccyx pain CYCLIC CITRUL PEPTIDE ANTIBODY, IGG Routine 05/03/2024 9:10 AM DRY CLEANING MACHINE OPERATOR Gouty arthritis Coccyx pain COMPREHENSIVE METABOLIC PANEL Routine 05/03/2024 9:10 AM DRY CLEANING MACHINE OPERATOR Gouty arthritis Coccyx pain CBC WITH AUTO DIFFERENTIAL Routine 05/03/2024 9:10 AM DRY CLEANING MACHINE OPERATOR Gouty arthritis Coccyx pain TESTOSTERONE, TOTAL AND FREE, SERUM Routine 05/03/2024 9:08 AM DRY CLEANING MACHINE OPERATOR 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 HEMOGLOBIN A1C Routine 05/03/2024 9:08 AM DRY CLEANING MACHINE OPERATOR Type 2 diabetes mellitus with diabetic neuropathy, without long-term current use of insulin (HCC) PSA SCREEN Routine 11/08/2023 7:59 AM CDT Male hypogonadism LIPID PANEL Routine 06/09/2023 8:13 AM CDT Type 2 diabetes mellitus with diabetic neuropathy, without long-term current use of insulin (HCC) Mixed hyperlipidemia Right-sided heart failure, unspecified HF chronicity (HCC) ALBUMIN CREATININE RATIO, URINE Routine 06/09/2023 8:13 AM CDT Type 2 diabetes mellitus with diabetic neuropathy, without long-term current use of insulin (HCC) Right-sided heart failure, unspecified HF chronicity (HCC) HEPATITIS C ANTIBODY Routine 09/13/2018 3:10 PM CDT Rheumatoid arthritis of multiple sites with negative rheumatoid factor (HCC) High risk medication use from Last 3 Months or Most Recently Relevant to Health Maintenance Results * CT Sacrum Coccyx WO Contrast (05/04/2024 2:13 PM DRY CLEANING MACHINE OPERATOR) Anatomical Region Laterality Modality Pelvis N/A Computed Tomogra phy 05/04/2024 3:43 PM DRY CLEANING MACHINE OPERATOR Impressions 05/04/2024 4:13 PM DRY CLEANING MACHINE OPERATOR 1. Mild bilateral sacroiliac joint osteoarthritis without erosions, ankylosis, or sclerosis. 2. Nondiagnostic dual-energy portion of the exam due to streak artifact from the right hip arthroplasty. Otherwise, no CT evidence of gout. Dictated by: Parrish Lee D.O. The radiology attending physician has personally reviewed this study, and had reviewed and/or edited this written report and agrees with it. Electronically signed by: Kavon Antony M.D. Narrative 05/04/2024 4:13 PM DRY CLEANING MACHINE OPERATOR EXAMINATION: CT SACRUM COCCYX WO CONTRAST HISTORY: Coccygeal pain with history of gout TECHNIQUE: Transaxial computed tomographic images of the sacrum and coccyx were obtained without intravenous contrast according to the dual-energy protocol. COMPARISON: CT dated 02/21/2017 FINDINGS: The dual-energy portion of the exam is nondiagnostic due to streak artifact from the right total hip arthroplasty. There is mild bilateral sacroiliac joint osteoarthritis without erosions, ankylosis, or sclerosis. There is no abnormality in the coccyx. There is no focal fluid collection, mass, or abnormal calcification adjacent to the coccyx or sacroiliac joints. There is a partially visualized right total hip arthroplasty. There are no acute fractures. There is moderate degenerative disc disease and facet arthropathy at L5-S1. There are soft tissue calcifications in the right gluteal region. The muscles are otherwise unremarkable. There are partially visualized bilateral common iliac stents. There are postoperative changes of a left inguinal hernia repair. There is a partially visualized hydrocele. The visualized pelvic viscera is otherwise unremarkable. Procedure Note Kavon Antony MD PhD - 05/04/2024 EXAMINATION: CT SACRUM COCCYX WO CONTRAST HISTORY: Coccygeal pain with history of gout TECHNIQUE: Transaxial computed tomographic images of the sacrum and coccyx were obtained without intravenous contrast according to the dual-energy protocol. COMPARISON: CT dated 02/21/2017 FINDINGS: The dual-energy portion of the exam is nondiagnostic due to streak artifact from the right total hip arthroplasty. There is mild bilateral sacroiliac joint osteoarthritis without erosions, ankylosis, or sclerosis. There is no abnormality in the coccyx. There is no focal fluid collection, mass, or abnormal calcification adjacent to the coccyx or sacroiliac joints. There is a partially visualized right total hip arthroplasty. There are no acute fractures. There is moderate degenerative disc disease and facet arthropathy at L5-S1. There are soft tissue calcifications in the right gluteal region. The muscles are otherwise unremarkable. There are partially visualized bilateral common iliac stents. There are postoperative changes of a left inguinal hernia repair. There is a partially visualized hydrocele. The visualized pelvic viscera is otherwise unremarkable. IMPRESSION: 1. Mild bilateral sacroiliac joint osteoarthritis without erosions, ankylosis, or sclerosis. 2. Nondiagnostic dual-energy portion of the exam due to streak artifact from the right hip arthroplasty. Otherwise, no CT evidence of gout. Dictated by: Parrish Lee D.O. The radiology attending physician has personally reviewed this study, and had reviewed and/or edited this written report and agrees with it. Electronically signed by: Kavon Antony M.D. us Gianni Montoya MD PhD IMG CT PROCEDURES F inal Result * CBC with auto differential (05/03/2024 9:10 AM DRY CLEANING MACHINE OPERATOR) [facility] WBC 7.9 3.8 - 10.8 Thousand/u L [facility] RBC, POC 5.04 4.20 - 5.80 Million/uL [facility] Hgb 15.6 13.2 - 17.1 g/dL [facility] Hct 47.1 38.5 - 50.0 % [facility] MCV 93.5 80.0 - 100.0 fL [facility] MCH 31.0 27.0 - 33.0 pg [facility] MCHC 33.1 32.0 - 36.0 g/dL [facility] Comment: For adults, a slight decrease in the calculated MCHC value (in the range of 30 to 32 g/dL) is most likely not clinically significant; however, it should be interpreted with caution in correlation with other red cell parameters and the patient's clinical condition. Rdw 13.0 11.0 - 15.0 % [facility] Platelets 216 140 - 400 Thousand/u L [facility] MPV 10.3 7.5 - 12.5 fL [facility] Neutrophils, abs 5,230 1,500 - 7,800 cells/uL [facility] Lymphocytes, abs 2,078 850 - 3,900 cells/uL [facility] Monocyte abs 363 200 - 950 cells/uL [facility] Eosinophils, abs 182 15 - 500 cells/uL [facility] Basophils, abs 47 0 - 200 cells/uL [facility] Neutrophils 66.2 % [facility] Lymphocyte pct 26.3 % [facility] Monocytes 4.6 % [facility] Eosinophils 2.3 % [facility] Basophils 0.6 % [facility] Blood 05/03/2024 9:10 AM DRY CLEANING MACHINE OPERATOR 05/03/2024 9:10 AM DRY CLEANING MACHINE OPERATOR Narrative [facility] - 05/04/2024 2:59 PM DRY CLEANING MACHINE OPERATOR FASTING:YES FASTING: YES us Gianni Montoya MD PhD LAB BLOOD ORDERABLE S Final Result [facility] [address] [place] [address] * Cyclic citrul peptide antibody, IgG (05/03/2024 9:10 AM DRY CLEANING MACHINE OPERATOR) Pathologist [facility] Cyclic citrullinated peptide ab, IgG <16 UNITS [facility] Comment: Reference Range Negative: <20 Weak Positive: 20-39 Moderate Positive: 40-59 Strong Positive: >59 Blood 05/03/2024 9:10 AM DRY CLEANING MACHINE OPERATOR 05/03/2024 9:10 AM DRY CLEANING MACHINE OPERATOR Narrative [facility] - 05/04/2024 2:59 PM DRY CLEANING MACHINE OPERATOR FASTING:YES FASTING: YES Gianni Montoya MD PhD LAB BLOOD ORDERABLE S Final Result Performing Organization Address [facility] Co de Phone Number [facility] [address] [place] [address] * Erythrocyte sedimentation rate (05/03/2024 9:10 AM DRY CLEANING MACHINE OPERATOR) Pathologist [facility] Erythrocyte sedimentation rate 2 < OR = 20 mm/h [facility] Blood 05/03/2024 9:10 AM DRY CLEANING MACHINE OPERATOR 05/03/2024 9:10 AM DRY CLEANING MACHINE OPERATOR Narrative [facility] - 05/04/2024 2:59 PM DRY CLEANING MACHINE OPERATOR FASTING:YES FASTING: YES Gianni Montoya MD PhD LAB BLOOD ORDERABLE S Final Result Performing Organization Address City/[facility] Co de Phone Number [facility] [address] [place] [address] * Rheumatoid factor (05/03/2024 9:10 AM DRY CLEANING MACHINE OPERATOR) Pathologist [facility] Rheumatoid factor, quant <10 <14 IU/mL [facility] Blood 05/03/2024 9:10 AM DRY CLEANING MACHINE OPERATOR 05/03/2024 9:10 AM DRY CLEANING MACHINE OPERATOR Narrative [facility] - 05/04/2024 2:59 PM DRY CLEANING MACHINE OPERATOR FASTING:YES FASTING: YES Gianni Montoya MD PhD LAB BLOOD ORDERABLE S Final Result Performing Organization Address [facility] de Phone Number [facility] [address] [place] [address] * CRP (acute phase) (05/03/2024 9:10 AM DRY CLEANING MACHINE OPERATOR) Pathologist [facility] C-RP 3.3 <8.0 mg/L [facility] 05/03/2024 9:10 AM DRY CLEANING MACHINE OPERATOR 05/03/2024 9:10 AM DRY CLEANING MACHINE OPERATOR Narrative [facility] - 05/04/2024 2:59 PM DRY CLEANING MACHINE OPERATOR FASTING:YES FASTING: YES us Gianni Montoya MD PhD LAB BLOOD ORDERABLE S Final Result Performing Organization Address [facility] Phone Number [facility] [address] [place] [address] * Uric acid (05/03/2024 9:10 AM DRY CLEANING MACHINE OPERATOR) [facility] Uric acid 4.8 4.0 - 8.0 mg/dL [facility] Comment: Therapeutic target for gout patients: <6.0 mg/dL Blood 05/03/2024 9:10 AM DRY CLEANING MACHINE OPERATOR 05/03/2024 9:10 AM DRY CLEANING MACHINE OPERATOR Narrative [facility] - 05/04/2024 2:59 PM DRY CLEANING MACHINE OPERATOR FASTING:YES FASTING: YES us Gianni Montoya MD PhD LAB BLOOD ORDERABLE S Final Result Performing Organization Address [facility] de Phone Number [facility] [address] [place] [address] * Comprehensive metabolic panel (05/03/2024 9:10 AM DRY CLEANING MACHINE OPERATOR) Pathologist [facility] Glucose 90 65 - 99 mg/dL [facility] Comment: Fasting reference interval BUN 15 7 - 25 mg/dL [facility] Creatinine 0.74 0.70 - 1.30 mg/dL [facility] eGFR 107 > OR = 60 mL/min/1.7 3m2 [facility] BUN/creat ratio SEE NOTE: 6 - 22 (calc) [facility] Comment: Not Reported: BUN and Creatinine are within reference range. Sodium 138 135 - 146 mmol/L [facility] Comment: Verified by repeat analysis. Potassium, pl 4.4 3.5 - 5.3 mmol/L [facility] Chloride 101 98 - 110 mmol/L [facility] Comment: Verified by repeat analysis. CO2 30 20 - 32 mmol/L [facility] Calcium 9.7 8.6 - 10.3 mg/dL [facility] Protein, sr 6.8 6.1 - 8.1 g/dL [facility] Albumin 4.4 3.6 - 5.1 g/dL [facility] GLOBULIN 2.4 1.9 - 3.7 g/dL (calc) [facility] Alb/glob ratio 1.8 1.0 - 2.5 (calc) [facility] Bilirubin, total 1.1 0.2 - 1.2 mg/dL [facility] Alk phos 44 35 - 144 U/L [facility] AST 14 10 - 35 U/L [facility] ALT (SGPT) 9 9 - 46 U/L [facility] Blood 05/03/2024 9:10 AM DRY CLEANING MACHINE OPERATOR 05/03/2024 9:10 AM DRY CLEANING MACHINE OPERATOR Narrative [facility] - 05/04/2024 2:59 PM DRY CLEANING MACHINE OPERATOR FASTING:YES FASTING: YES us Gianni Montoya MD PhD LAB BLOOD ORDERABLE S Final Result [facility] [address] [place] [address] * (ABNORMAL) Testosterone, Total and Free, Serum (05/03/2024 9:08 AM DRY CLEANING MACHINE OPERATOR) Testosterone 488 250 - 1,100 ng/dL [facility] Comment: For additional information, please refer to https://education.WhoCanHelp.com.Snapvine/faq/ECF107 (This link is being provided for informational/educational purposes only.) (Note) This test was developed and its analytical performance characteristics have been determined by [employer]. It has not been cleared or approved by the FDA. This assay has been validated pursuant to the CLIA regulations and is used for clinical purposes. Testosterone, free 75.1 35.0 - 155.0 pg/mL [facility] Comment: (Note) This test was developed and its analytical performance characteristics have been determined by [facility]. It has not been cleared or approved by the FDA. This assay has been validated pursuant to the CLIA regulations and is used for clinical purposes. [facility] [address] [address],[address] [facility] [id number] Bindu Johnson MD, PhD Sex hormone binding globulin 55.9(H) 10 - 50 nmol/L [facility] Blood 05/03/2024 9:08 AM DRY CLEANING MACHINE OPERATOR 05/03/2024 9:08 AM DRY CLEANING MACHINE OPERATOR Narrative [facility] - 05/09/2024 5:18 PM DRY CLEANING MACHINE OPERATOR FASTING:YES FASTING: YES Janet Thomas MD LAB BLOOD ORDERABLES Final Result [facility] [address] [address], [address] [place] [address] * Hemoglobin A1c (05/03/2024 9:08 AM DRY CLEANING MACHINE OPERATOR) Hgb A1C 5.0 <5.7 % of total Hgb [facility] Comment: For the purpose of screening for the presence of diabetes: <5.7% Consistent with the absence of diabetes 5.7-6.4% Consistent with increased risk for diabetes (prediabetes) > or =6.5% Consistent with diabetes This assay result is consistent with a decreased risk of diabetes. Currently, no consensus exists regarding use of hemoglobin A1c for diagnosis of diabetes in children. According to [place] Diabetes Association (ADA) guidelines, hemoglobin A1c <7.0% represents optimal control in non- diabetic patients. Different metrics may apply to specific patient populations. Standards of Medical Care in Diabetes(ADA). Blood 05/03/2024 9:08 AM DRY CLEANING MACHINE OPERATOR 05/03/2024 9:08 AM DRY CLEANING MACHINE OPERATOR Narrative [facility] - 05/09/2024 5:18 PM DRY CLEANING MACHINE OPERATOR FASTING:YES FASTING: YES Janet Thomas MD LAB BLOOD ORDERABLES Final Result Performing Organization Address City/[facility]/ZIP Co de Phone Number [facility] [address] [place] [address] * PSA screen (11/08/2023 7:59 AM CDT) PSA 0.65 < OR = 4.00 ng/mL [facility] Comment: The total PSA value from this assay system is standardized against the WHO standard. The test result will be approximately 20% lower when compared to the equimolar-standardized total PSA ([place]). Comparison of serial PSA results should be interpreted with this fact in mind. This test was performed using the Siemens chemiluminescent method. Values obtained from different assay methods cannot be used interchangeably. PSA levels, regardless of value, should not be interpreted as absolute evidence of the presence or absence of disease. Blood 11/08/2023 7:59 AM CDT 11/08/2023 8:00 AM CDT Narrative [facility] - 11/12/2023 8:25 AM CDT FASTING:YES FASTING: YES Janet Thomas MD LAB BLOOD ORDERABLES Final Result Performing Organization Address [facility] Co de Phone Number [facility] [address] [facility] [place] [address] * Albumin Creatinine Ratio, Urine (06/09/2023 8:13 AM CDT) Creatinine, ur 170 20 - 320 mg/dL [facility] Microalbumin, ur 0.6 See Note: mg/dL [facility] Comment: Reference Range: Reference Range Not established Microalbumin/creat ratio 4 <30 mcg/mg creat [facility] Comment: The ADA defines abnormalities in albumin excretion as follows: Albuminuria Category Result (mcg/mg creatinine) Normal to Mildly increased <30 Moderately increased 30-299 Severely increased > OR = 300 The ADA recommends that at least two of three specimens collected within a 3-6 month period be abnormal before considering a patient to be within a diagnostic category. Urine 06/09/2023 8:13 AM CDT 06/09/2023 8:14 AM CDT Janet Thomas MD LAB URINE ORDERABLES Final Result [facility] [address] [place] [address] * (ABNORMAL) Lipid panel (06/09/2023 8:13 AM CDT) Cholesterol 145 <200 mg/dL [facility] HDL 36(L) > OR = 40 mg/dL [facility] Triglycerides 94 <150 mg/dL [facility] LDL 90 mg/dL (calc) [facility] Comment: Reference range: <100 Desirable range <100 mg/dL for primary prevention; <70 mg/dL for patients with CHD or diabetic patients with > or = 2 CHD risk factors. LDL-C is now calculated using the Ramin-Smith calculation, which is a validated novel method providing better accuracy than the Friedewald equation in the estimation of LDL-C. Ramin SS et al. MARC. 2013;310(19): 8254-1694 (http://education.The Kernel.Snapvine/faq/OHY324) Chol/HDL ratio 4.0 <5.0 (calc) [facility] Non-HDL, (LDL+VLDL) 109 <130 mg/dL (calc) [facility] Comment: For patients with diabetes plus 1 major ASCVD risk factor, treating to a non-HDL-C goal of <100 mg/dL (LDL-C of <70 mg/dL) is considered a therapeutic option. Blood 06/09/2023 8:13 AM CDT 06/09/2023 8:14 AM CDT Janet Thomas MD LAB BLOOD ORDERABLES Final Result [facility] [address] [place] [address] * Hepatitis C antibody (09/13/2018 3:10 PM CDT) Hep C Ab Nonreactive Nonreactive [facility] Comment: Interpretive Data Positive results should be confirmed by a molecular method. If positive, a second separately collected sample should be submitted for Hepatitis C Virus (HCV) RNA Detection and Quantitation by Real-Time Reverse Certified Histologic Technician-PCR (RT-PCR). Current interpretive data was last revised on 2016. Blood specimen (specimen) 09/13/2018 3:10 PM CDT 09/13/2018 6:52 PM CDT us Ross Terrell MD PhD LAB MICROBIOL OGY - GENERAL ORDERABLES Edited Result - Final [facility] Department [place] [address] from Last 3 Months or Most Recently Relevant to Health Maintenance Insurance [facility] CHOICE PLUS [facility] CHOICE PLUS Member Subscriber Plan / Payer (Ef fective 2021-Present) Name:Jesus Laws Relation to Subscriber:Self Name:Jesus Laws Payer ID:[id number] (NAIC) Type:[facility] HMO/PPO Address: [address] [id number] [facility] CHOICE PLUS Care Teams Mine Inspector Federal Relationship Specialty Start Date End Date Boris Laws MD PCP - General 08/13/16 Janet Thomas MD Referring Physician Endocrinology Diabetes & Metabolism 07/04/19 Sherie Ocasio MD [address] [address] Referring Physician Rheumatology 07/04/19 Celso Martinez MD [address] [address] Consulting Physician Urology 07/04/19 Stephen Lopez MD [address] [place], [place] [address] Referring Physician Neurology 07/04/19 Michel Atkins MD [address] [address] Referring Physician Hematology 07/22/20 Chao Smallwood MD [facility], [address] [place] [address] Internal Medicine 05/10/22 Chao Smallwood MD [facility], [address] [place] [address] Internal Medicine 08/19/22
--- OUTSIDE RECORDS SUMMARY | 2024-06-15 00:44 | XMS_ITS | Encounter Summary ---
Author Organization [facility] Address [address] [place] [address] Phone Care Team Providers Care Sammying Machine Operator Name Role Phone Boris Laws MD Primary Care Provider [phone] Janet Thomas MD Unavailable [phone] Sherie Ocasio MD Unavailable [phone] Celso Martinez MD Unavailable [phone] Stephen Lopez MD Unavailable [phone] Michel Atkins MD Unavailable [phone] Chao Smallwood MD Unavailable [phone] Chao Smallwood MD Unavailable + [phone] Encounter Details Date Type Department Care Team (Late st Contact Info) Description 02/16/2024 Orders Only [facility] Scanning, Provider Social History Tobacco Use Types Packs/Day Years Used Date Smoking Tobacco: Never Smokeless Tobacco: Current Chew Comments:Started 33 years ag o (14 years old). One can per day. [...] 08/10/2021 How often do you attend chur ch or mosque services? Never 08/10/2021 Do you belong to any clubs o r organizations such as buddhism groups, unions, fraternal or athletic groups, or [...] Average Number of Drinks Not on file 021 Frequency of Binge Drinking Not on file [...] place to sleep or slept in a longterm (including now)? No 08/10/2021 Sex and Gender Information Value Date Recorded Sex Assigned at Not on file Legal Sex Male 2:25 AM HYDRAULIC JACK ADJUSTER Gender Identity Male 02/03/2018 3:01 PM HYDRAULIC JACK ADJUSTER Sexual Orientation Straight 08/11/2018 6: 30 AM CDT documented as of this encounter Plan of Treatment Not on file documented as of this encounter Procedures Procedure Name Priority Date/Time Associated Diagnosis Comments SCAN - RADIOLOGY/IMAGING 02/16/2024 documented in this encounter Results * SCAN - RADIOLOGY/IMAGING (02/16/2024) Anatomical Region Laterality Modality Other us Provider Scanning Edited Result - Final documented in this encounter Visit Diagnoses Not on filedocumented in this encounter Care Teams Sammying Machine Operator Relationship Specialty Start Date End Date Boris Laws MD PCP - General 08/13/16 Janet Thomas MD Referring Physician Endocrinology Diabetes & Metabolism 07/04/19 Sherie Ocasio MD [address] [place] [address] Referring Physician Rheumatology 07/04/19 Celso Martinez MD [address] [place] [address] Consulting Physician Urology 07/04/19 Stephen Lopez MD [address] [place] [address] Referring Physician Neurology 07/04/19 Michel Atkins MD [address] [place] [address] Referring Physician Hematology 07/22/20 Chao Smallwood MD [facility], [address] [place] [address] Internal Medicine 05/10/22 Chao Smallwood MD [facility], [address] [place], [place] [address] Internal Medicine 08/19/22 documented as of this encounter
--- OUTSIDE RECORDS SUMMARY | 2024-06-15 00:44 | XMS_ITS | Encounter Summary ---
Author Organization [facility] Address [address] [place] [address] Phone Care Team Providers Care Caving Guide Name Role Phone Boris Laws MD Primary Care Provider [phone] Janet Thomas MD Unavailable [phone] Sherie Ocasio MD Unavailable [phone] Celso Martinez MD Unavailable [phone] Stephen Lopez MD Unavailable [phone] Michel Atkins MD Unavailable [phone] Chao Smallwood MD Unavailable [phone] Chao Smallwood MD Unavailable + [phone] Encounter Details Date Type Department Care Team (Late st Contact Info) Description 12/13/2023 Orders Only [facility] Scanning, Provider [...] often do you attend chur ch or congregation services? Never 08/10/2021 Do you belong to any clubs o r organizations such as jewish groups, unions, fraternal or athletic groups, or [...] place to sleep or slept in a penitentiary (including now)? No 08/10/2021 Sex and Gender Information Value Date Recorded Sex Assigned at Not on file Legal Sex Male 2:25 AM POPCORN MACHINE OPERATOR Gender Identity Male 02/03/2018 3:01 PM POPCORN MACHINE OPERATOR Sexual Orientation Straight 08/11/2018 6: 30 AM CDT documented as of this encounter Plan of Treatment Not on file documented as of this encounter Procedures Procedure Name Priority Date/Time Associated Diagnosis Comments SCAN - RADIOLOGY/IMAGING 12/13/2023 documented in this encounter Results * SCAN - RADIOLOGY/IMAGING (12/13/2023) Anatomical Region Laterality Modality Other us Provider Scanning Final Result documented in this encounter Visit Diagnoses Not on filedocumented in this encounter Care Teams Caving Guide Relationship Specialty Start Date End Date Boris Laws MD PCP - General 08/13/16 Janet Thomas MD Referring Physician Endocrinology Diabetes & Metabolism 07/04/19 Sherie Ocasio MD [id number] [place] [address] Referring Physician Rheumatology 07/04/19 Celso Martinez MD [address] [facility] [address] [place] [address] Consulting Physician Urology 07/04/19 Stephen Lopez MD [address] [place] [address] Referring Physician Neurology 07/04/19 Michel Atkins MD [address] [facility] [address] [place] [address] Referring Physician Hematology 07/22/20 Chao Smallwood MD [facility], [address] [place] [address] Internal Medicine 05/10/22 Chao Smallwood MD [facility] [address] [place], [place] [address] Internal Medicine 08/19/22 documented as of this encounter
--- OUTSIDE RECORDS SUMMARY | 2024-06-15 00:44 | XMS_ITS | Clinical Summary ---
Author Organization [facility] Address [address] [place] [address] Phone Care Team Providers Care Assistant Film Editor Name Role Phone Clark Mejia MD Primary Care Provider [phone] Allergies Active Allergy Reactions Criticality Noted Date Comments Cefixime Nausea 03/04/2003 Penicillins Swelling 03/04/2003 Sulfa Antibiotics Nausea 03/04/2003 Social History Tobacco Use Types Packs/Day Years Used Date Smoking Tobacco: Never Assessed Sex and Gender Information Value Date Recorded Sex Assigned at Not on file Legal Sex Male 2:55 AM AIRFIELD ENGINEER OFFICER Gender Identity Not on file Sexual Orientation Not on file Plan of Treatment Health Maintenance Due Date Last Done Comments Hepatitis C Virus (HCV) Screening 1970 TdaP Immunization 1969 Hepatitis B Immunization (1 of 3 - 19+ 3-dose series) 01/12/1988 Colonoscopy 2014 Colorectal Cancer Screening 2014 Cologuard 2019 Immunochemical Fecal Occult Blood 2019 Pneumococcal Immunization (5 0+ years) (1 of 1 - PCV) 2019 Zoster Immunization (1 of 2) 2019 Influenza Immunization (#1) 2023 SARS-COV-2 Immunization ( - season) 2023 PSA Discussion 01/12/2024 Respiratory Syncytial Virus (RSV) Immunization (Adult) (1 - 1-dose 75+ series) 01/12/2044 Meningococcal Immunization (ACWY) Aged Out No longer eligible based on patient's age to complete this topic Pneumococcal Immunization Combined Aged Out No longer eligible based on patient's age to complete this topic Rotavirus Immunization Aged Out No lo nger eligible based on patient's age to complete this topic Care Teams Assistant Film Editor Relationship Specialty Start Date End Date Clark Mejia MD [address] [place] [address] PCP - General 03/26/07
--- OUTSIDE RECORDS SUMMARY | 2024-06-15 00:44 | XMS_ITS | Encounter Summary ---
Author Organization [facility] Address [address] [place] [address] Care Team Providers Care Hvac Design Mechanical Engineer Name Role Phone Boris Laws MD Primary Care Provider [phone] Chao Smallwood MD Unavailable [phone] Mehran Wetzel MD Unavailable Encounter Details Date Type Department Care Team (Late st Contact Info) Description 09/22/2022 MyChart Message Enc [facility] [address] [place] [address] [facility], [facility] Provider Air Quality Message Social History Tobacco Use Types Packs/Day Years Used Date Smoking Tobacco: Never Smokeless Tobacco: Current Chew Alcohol Use Standard Drinks/Week Comments Not Currently 0 (1 standard drink = 0.6 oz pur e alcohol) Sex and Gender Information Value Date Recorded Sex Assigned at Not on file Legal Sex Male 8:00 PM CDT Gender Identity Male 12/04/2021 2:36 PM CDT Sexual Orientation Straight 12/04/2021 2: 36 PM CDT Occupation Industry Job Start Date Job End Date disabled Not on file Not on file Not on file documented as of this encounter Plan of Treatment Upcoming Encounters Date Type Department Care Team (Late st Contact Info) Description 08/13/2024 2:30 PM CDT Office Visit [facility] [address] [place] [address] Chao Smallwood MD Three [facility] [address] [place], [place] [id number] documented as of this encounter Visit Diagnoses Not on filedocumented in this encounter Care Teams Hvac Design Mechanical Engineer Relationship Specialty [place] [address] [id number] PCP - General INTERNAL MEDICINE 01/01/21 Chao Smallwood MD Three [facility] [address] [place] [address] Physician CARDIOVASCULAR DISEASE 01/20/21 Mehran Wetzel MD [address] [address] CARDIOVASCULAR DISEASE 01/20/21 documented as of this encounter
--- OUTSIDE RECORDS SUMMARY | 2024-06-15 00:45 | XMS_ITS | Clinical Summary ---
Author Organization [facility] Address [facility] [place] [address] Care Team Providers Care Head Sugar Reprocess Operator Name Role Phone Boris Laws MD Primary Care Provider [phone] Chao Smallwood MD Unavailable [phone] Mehran Wetzel MD Unavailable Allergies Active Allergy Reactions Criticality Noted Date Comments Azathioprine GI Upset Low 01/05/2021 Cefixime Nausea Only,Nausea a nd Vomiting Low 03/04/2003 Meperidine Unknown 01/20/2021 Does not work Levofloxacin Blurred vision,Diarrhea,GI Upset,Joint Pain,Leg Pain,Nausea and Vomiting,Other (see comment),Swelling,Tinni tus 07/20/2022 Lisinopril Other (see comment) 07/23/2022 Dry cough Losartan Other (see comment) 07/23/2022 Numbness in hands and feet Metformin GI Upset Low 01/05/2021 Nickel Rash Medium 01/15/2013 Prednisone Unknown 11/09/2010 Unable to use legs Sulfa Antibiotics Nausea Only 03/04/2003 Sulfasalazine Nausea and Vomiting Low 03/04/2003 Tape Rash Medium 01/05/2021 Vancomycin Unknown,Other (see comment) High 03/05/2013 Kidney failure Kidney failure Midazolam Unknown 01/20/2021 Does not work for patient no adverse reaction Zolmitriptan Other (see comment) Low 12/09/2015 Looses use of legs Medications ALPRAZolam 1 MG tablet Take 1 tablet (1 mg total) by mouth every evening. 12/29/2020 Active ELIQUIS 5 MG tablet Take 1 tablet (5 mg total) by mouth 2 (two) times daily. 12/29/2020 Active cholecalciferol 1.25 MG (64286 UT) capsule Take 1 capsule (50,000 Units total) by mouth once a week. Active methadone 10 MG tablet Take 1 tablet (10 mg total) by mouth 3 (three) times daily. 12/29/2020 Active ipratropium-alb uterol (COMBIVENT RESPIMAT) 20-100 MCG/ACT inhaler Inhale 1 puff into the lungs daily as needed. 11/21/2020 Active oxyCODONE immediate release 15 MG immediate release tablet Take 1 tablet (15 mg total) by mouth every 4 (four) hours as needed. 12/24/2020 Active NARCAN 4 MG/0.1ML nasal spray daily as needed. 10/23/2020 Active acetaminophen (TYLENOL) 500 MG tablet Take 1 tablet (500 mg total) by mouth as needed. Active calcium citrate-vitamin D (CITRACAL PETITES/VIT D) 200-250 MG-UNIT Tab Take 1 tablet by mouth daily. Active olopatadine (PATANOL) 0.1 % ophthalmic solution 10/26/2021 Active dulaglutide (TRULICITY) 3 MG/0.5ML injection once a week. 06/03/2022 Active pregabalin (LYRICA) 200 MG capsule Take 1 capsule (200 mg total) by mouth daily. Active RABEprazole EC (ACIPHEX) 20 MG tablet Take 2 tablets (40 mg total) by mouth 2 times daily Active XYOSTED 100 MG/0.5ML Solution Auto-injector 06/15/2023 Activ e ferrous gluconate (FERGON) 324 (37.5 Fe) MG tablet Take 1 tablet (324 mg total) by mouth daily with breakfast. 06/25/2023 Active vitamin D2, ergocalciferol, (DRISDOL) 1.25 mg capsule Take 1 capsule (1.25 mg total) by mouth every 7 days. 07/12/2023 Active Ca Phosphate-Brii calciferol (CALTRATE GUMMY BITES OR) Active Lecithin 1200 MG Cap Active spironolactone (ALDACTONE) 25 MG tablet take 1 tablet by mouth daily 90 tablet 3 08/23/2023 Active hydroCHLOROthia zide (MICROZIDE) 12.5 MG tablet TAKE 1 TABLET BY MOUTH EVERY MORNING 90 tablet 3 08/26/2023 Active amLODIPine (NORVASC) 5 MG tablet TAKE 1 AND 1/2 TABLETS BY MOUTH DAILY 135 tablet 3 11/10/2023 Active potassium chloride CR (KLOR-CON M) 20 MEQ tablet take 1 tablet by mouth daily 90 tablet 3 11/10/2023 Active Active Problems Problem Noted Date Diagnosed Date Family history of diabetes mellitus 04/29/2022 Family history of ischemic h eart disease and other diseases of the circulatory system 04/29/2022 Hypertension 11/10/2021 Male hypogonadism 07/04/2019 Overview (04/29/2022): Managed by his urologist. Also has BPH 02/18/20: Free T 3.8 (very low) Last Assessment & Plan: Energy level good. Managed by his urologist. 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 ([facility]) 02/08/2019 Thoracic spondylosis with myelopathy 01/31/2019 History of colonic polyps 11/08/2018 External hemorrhoids 11/07/2018 History of total hip arthroplasty 11/07/2018 Irritable bowel syndrome with alternating bowel habits 11/07/2018 Dry eye syndrome of both eyes 12/29/2017 History of rheumatoid arthritis 12/29/2017 Right heart failure ([facility]) 10/25/2017 Pulmonary hypertension ([facility]) 018 Dyspnea on exertion 09/26/2017 Overview (04/29/2022): Last Assessment & Plan: Strong family history for CAD. Will obtain Lexiscan nuclear stress test to rule out ischemia as possible etiology. Patient does have mild pulmonary hypertension, he is morbidly obese, deconditioning and these all could be contributing to his shortness of breath as well. Morbid obesity with body mass index of 40.0-49.9 05/12/2017 Overview (04/29/2022): Last Assessment & Plan: I advised patient about diet modification to help him lose weight. He is sedentary and not physically active. 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 Neuropathy significantly improved with low-dose nortriptyline. Reflex sympathetic dystrophy 12/09/2015 Overview (04/29/2022): Last Assessment & Plan: May affect activity, need to minimize risk of hypoglycemia Hoarseness 05/13/2015 Iron deficiency anemia 01/08/2015 Benign essential hypertension 11/15/2014 Overview (04/29/2022): Last Assessment & Plan: Blood pressure within target Benign prostatic hyperplasia 11/15/2014 Chronic pain syndrome 11/15/2014 Obstructive sleep apnea syndrome 11/15/2014 Chronic anemia 11/12/2014 Fibromyalgia 02/20/2014 Insomnia 02/20/2014 Rheumatoid arthritis involvi ng multiple sites ([facility]) 02/20/2014 Standard chest x-ray abnormal 02/13/2014 Disorder of lung 01/03/2014 Edema of lower extremity 04/30/2013 Overview (04/29/2022): Last Assessment & Plan: Will discontinue Norvasc to rule out Norvasc as possible contributing factor. Likely venous insufficiency. Will add Aldactone as well to control blood pressure might help with reducing the edema. Advised patient to use compression stockings. If these conservative measures do not provide help then will refer for vascular surgery for further evaluation. 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 HX: fractures - left tibia, right fibula, right wrist, T12. Avascular necrosis of the right hip which has been replaced Considering tooth implants DEXA 12/20/2019: T-score hip -1.8 Last Assessment & Plan: DEXA 12/20/2019: T-score hip -1.8 Also exacerbated by hypogonadism. On vitamin-D supplementation. Asthma (HHS/HCC) 10/04/2011 Osteoarthritis of hip 12/16/2010 Encounters Date Type Department Care Team Description 06/06/2024 Telephone [facility], [address] [address] hCao Smallwood MD Surgical Clearance from Last 3 Months Immunizations Name Administration Dates Next Due Flublok (Quadrivalent) 02/08/2019 Influenza (Generic) 12/29/2016,04/18/2015,2013 Influenza Adult (Generic) 02/02/2022,,01/25/2020,12/27/2017,2017,04/05/2016 Pneumococcal (Prevnar 13) 09/08/2016 Pneumococcal (Prevnar 20) 02/12/2022 Family History Medical History Relation Comments Heart Attack Father Open Heart Father Stent Cardiac Father Stroke Father Stroke Maternal Grandfather Cancer Maternal Grandmother colon Cancer Paternal Grandfather colon Heart Attack Paternal Grandmother Stent Cardiac Paternal Grandmother Relation Status Comments Father (Age 78) Maternal Grandfather (Age 45) Maternal Grandmother (Age 78) Mother Alive Paternal Grandfather (Age 78) Paternal Grandmother (Age 82) Sister Alive Social History Tobacco Use Types Packs/Day Years [...] file Not on file Not on file Last Filed Vital Signs Vital Sign Reading Time Taken Comments Blood Pressure 140/74 08/11/2023 3:04 PM CDT Pulse 78 08/11/2023 3:04 PM CDT Temperature 36.6 C (97.9 F) 01/26/2021 11:58 AM CDT Respiratory Rate 20 02/09/2021 12:10 PM 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 Oxygen Saturation 96% 08/11/2023 3:04 PM CDT Inhaled Oxygen Concentration - - Weight 112 kg (247 lb) 08/11/2023 3:04 PM CDT Height 180.3 cm (5' 11 ) 08/11/2023 3:04 PM CDT Body Mass Index 34.45 08/11/2023 3:04 PM CDT Plan of Treatment Upcoming Encounters Date Type Department Care Team (Late st Contact Info) Description 08/13/2024 2:30 PM CDT Office Visit [facility] [address] [place] [address] Chao Smallwood MD [facility], [address] [place] [address] Health Maintenance Due Date Last Done Comments Colorectal Cancer Screening Colonoscopy (10 Years) 1969 Kidney Health Evaluation 1969 Lipid Panel 1969 Annual Physical 01/12/1972 Diabetes: Retinopathy Eye Exam 1987 Hepatitis C 1987 DTaP, Tdap and Td Vaccines (1 - Tdap) 01/12/1988 Hepatitis B Vaccines (1 of 3 - 19+ 3-dose series) 01/12/1988 Zoster Vaccines (1 of 2) 2019 COVID-19 Vaccine ( - season) 2023 11/20/2020, 10/23/2020 Hemoglobin A1C 12/10/2023 06/09/2023, 05/08/2022, 05/12/2022, Additional history exists Influenza Adult (#1) 2023 02/02/2022, 01/07/2021, 01/25/2020, Additional history exists PHQ-2 (Physician [place]) 03/28/2024 Pneumococcal Vaccine: Pediatrics (0 to 5 Years) and At-Risk Patients (6 to 64 Years) Completed 02/12/2022, 09/08/2016 Meningococcal B Vaccine Aged Out No l onger eligible based on patient's age to complete this topic Meningococcal Vaccine Aged Out No riaz ce eligible based on patient's age to complete this topic RSV Immunizations Under 20 Months Aged Out No longer eligible based on patient's age to complete this topic Insurance [facility] Care Teams Head Sugar Reprocess Operator Relationship Specialty [place] [address] [address] [facility] [address], [place] [phone] PCP - General INTERNAL MEDICINE 01/01/21 Chao Smallwood MD Three [facility], [address] [place], [place] [address] Physician CARDIOVASCULAR DISEASE 01/20/21 Mehran Wetzel MD [address] [facility] [address] [place] [id number] CARDIOVASCULAR DISEASE 01/20/21
--- OUTSIDE RECORDS SUMMARY | 2024-06-15 00:45 | XMS_ITS | Encounter Summary ---
Author Organization [facility] Address [facility] [place] [address] Care Team Providers Care Pt Escort Name Role Phone Boris Laws MD Primary Care Provider [phone] Chao Smallwood MD Unavailable [phone] Mehran Wetzel MD Unavailable Encounter Details Date Type Department Care Team (Late st Contact Info) Description 08/08/2023 [employer] Message Enc [facility] [address] [place] [address] Chao Smallwood MD [facility], [address] [place] [address] Fax Number and Email Address For Lab Work Results. Social History Tobacco Use Types Packs/Day Years [...] on file documented as of this encounter Progress Notes * Cary Martinez RN - 08/09/2023 3:53 PM CDTFrom: Jesus Laws To: Dr Chao Smallwood Sent: 08/08/2023 3:50 PM CDT Subject: Fax Number and Email Address For Lab Work Results. I would like to send my lab test results from [facility] taken in May 2023 before my August 10 appointment. Please provide the best fax and email address where to send the request. Thank you, Jesus Laws documented in this encounter Plan of Treatment Upcoming Encounters Date Type Department Care Team (Late st Contact Info) Description 08/13/2024 2:30 PM CDT Office Visit [facility] [address] [place], [place] [phone] Chao Smallwood MD [facility], [address] [address] documented as of this encounter Visit Diagnoses Not on filedocumented in this encounter Care Teams Pt Escort Relationship Specialty [place] [address] [address] [place] [address] [place] [address] PCP - General INTERNAL MEDICINE 01/01/21 Chao Smallwood MD [facility], [address] [place] [address] Physician CARDIOVASCULAR DISEASE 01/20/21 Mehran Wetzel MD [address] [facility] [address] [place] [id number] CARDIOVASCULAR DISEASE 01/20/21 documented as of this encounter
--- OUTSIDE RECORDS SUMMARY | 2024-06-15 00:45 | XMS_ITS | Clinical Summary ---
Author Organization [facility], Formerly [facility] al Address [address] [place] [address] Care Team Providers Care Hatchery Attendant Name Role Phone Boris Laws MD Primary Care Provider [phone] Janet Thomas MD Unavailable [phone] Sherie Ocasio MD Unavailable [phone] Celso Martinez MD Unavailable [phone] Stephen Lopez MD Unavailable [phone] Michel Atkins MD Unavailable [phone] Chao Smallwood MD Unavailable + [phone] Chao Smallwood MD Unavailable + [phone] Allergies Active Allergy Reactions Criticality Noted Date [...] neuropathy, without long-term current use of insulin ([facility]) Use the Contour Next Gen Glucose meter as directed to test blood sugar. 1 each 023 Active ferrous gluconate 324 mg (37.5 mg of elemental iron) tablet daily 023 Active lancets (Microlet Lancet) miscIndications :Type 2 diabetes mellitus with diabetic neuropathy, without long-term current use of insulin ([facility]) USE 1 LANCET DAILY TO TEST BLOOD SUGAR 100 each 3 024 Active blood glucose diagnostic (Contour Next Test Strips) stripIndication s:Type 2 diabetes mellitus with diabetic neuropathy, without long-term current use of insulin ([facility]) CHECK BLOOD SUGAR ONCE DAILY 100 strip 3 024 Active allopurinoL (ZYLOPRIM) 300 mg tablet Take 1 tablet (300 mg total) by mouth daily 024 Active hydroCHLOROthia zide 12.5 mg tablet Take 1 tablet (12.5 mg total) by mouth boy's adviser before breakfast 024 Active lecithin, soy 1,200 [...] neuropathy, without long-term current use of insulin ([facility]) INJECT THE CONTENTS OF ONE PEN SUBCUTANEOUSLY WEEKLY DIRECTED 6 mL 3 025 Active tirzepatide (Mounjaro) 5 mg/0.5 mL pen injectorIndicat ions:Type 2 diabetes mellitus with diabetic neuropathy, without long-term current use of insulin ([facility]) Inject 5 mg under the skin every 7 days 6 mL 3 024 2024 Discontinued Active Problems Problem Noted Date Diagnosed Date Gouty arthritis 04/24/2024 Coccyx pain 04/24/2024 COVID-19 08/05/2021 Has immunity to COVID-19 virus 07/08/2021 Overview (08/06/2021): Moderna vaccine x 2; COVID 08/05/21 Assessment & Plan (05/10/2022 7:40 AM CARDROOM WORKER): Fully vaccinated, Hx COVID; eligible for booster. External hemorrhoids 10/22/2020 Pain of lower extremity 08/06/2020 Overview (08/06/2020): Added automatically from request for surgery [id number] Male hypogonadism 07/04/2019 Overview (07/22/2020): Managed by his urologist. Also has BPH 02/18/20: Free T 3.8 (very low) Assessment & Plan (11/13/2023 4:35 PM CDT): Doing well, but recent polycythemia. Testosterone dose just recently decreased. Also due to see his territory account representative. Plan to recheck his labs in about [...] discussed Assessment & Plan (05/12/2022 2:30 PM CARDROOM WORKER): Glucoses a little on the high side, [...] control Assessment & Plan (05/12/2022 2:30 PM CARDROOM WORKER): Not currently on statin, but has multiple [...] nephrolithiasis Assessment & Plan (05/12/2022 2:30 PM CARDROOM WORKER): Continue chronic supplement, maintaining a reasonable level [...] Citical daily, Ergo weekly HX: Reclast 2016, 2014 and 2013, teriparatide with side effects. HX: [...] years Assessment & Plan (05/12/2022 2:29 PM CARDROOM WORKER): Needs optimal glycemic control. Fib-4 index shows low risk for fibrosis Encounters Date Type Department Care Team Description 05/04/2024 1:34 PM CARDROOM WORKER - 05/04/2024 11:59 PM CARDROOM WORKER Hospital Encounter [facility] [address] [place] [address] Coccyx pain Discharge Disposition: Discharge to home or self care 05/04/2024 Telephone [facility] Endocrinology Metabolism and Lipid [address] [facility] 13th [place] [address] [place] [id number] Tricia Ricks RN 05/02/2024 Telephone [facility] Endocrinology Metabolism and Lipid [address] [facility] 13[address] [place] [phone] Dayanara Kitchen RN syringe order 04/26/2024 Orders Only [facility] Endocrinology Metabolism and Lipid [address] [facility] 13[address] [place] [phone] Janet Thomas MD Male hypogonadism; Deficiency of testosterone biosynthesis 04/24/2024 9:00 AM CARDROOM WORKER Office Visit [facility] Rheumatology [address] [facility] 5th [address] [place] [address] Gianni Montoya MD PhD Coccyx pain (Primary Dx); Gouty arthritis 04/03/2024 2:00 PM CARDROOM WORKER Office Visit [facility] Surgery [id number] [place] [address] [address] [address] Salas Steele MD Nontraumatic coccydynia (Primary Dx); Pilonidal cyst; Other constipation; Grade II hemorrhoids 03/22/2024 Telephone [facility] Endocrinology Metabolism and Lipid [address] [facility] 13th [address] [place] [phone] Rylee Clinton RMA Prior Auth (Testosterone Cypionate 200mg/ml Solution) 03/19/2024 Orders Only [facility] Endocrinology Metabolism and Lipid [address] [facility] 13[address] [place] [phone] Janet Thomas MD from Last 3 Months Immunizations Immunization Administration Dates Next Due Influenza, [...] PCV 13 09/08/2016 Pneumococcal Conjugate Pcv20 02/12/2022 Surgical History Surgery Date Site/Laterality Comments HERNIA REPAIR 03/28/2008 - 03/27/2009 Hernia repair HIP ARTHROPLASTY 03/28/2009 - 03/27/2010 Hip replacement GA ARTHRP ACETBLR/PROX FEM PROSTC AGRFT/ALGRFT Total Hip Replacement - Right - for AVN (Added by TW Conv) RADIAL KERATOTOMY LASIK 12/26/2002 SINUS SURGERY 03/28/2004 - 03/27/2005 HIP SURGERY Right multiple hip surgery HERNIA REPAIR Medical History Medical History Date Comments Fibrositis Fibromyalgia Psoriasis Psoriasis Rosacea Rosacea Depression Depression Irritable bowel syndrome Irritab le bowel disease Anxiety disorder Anxiety Gastroesophageal reflux disease GERD Anemia Anemia Osteoporosis Osteoporosis Embolism (HCC) Blood clots Attention-deficit hyperactiv ity disorder Attention-deficit/hyperactiv ity disorder - (Added by TW Conv) 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 Closed Fracture Of Thoracic Vertebral Body At T7-T12 Level With Central Cord Syndrome - (Added by TW Conv) Closed fracture of dorsal (t horacic) vertebra (HCC) Fracture Of 12th Thoracic Ve rtebral Body - (Added by TW Conv) Personal history of pulmonary embolism History of pulmonary embolism - x2 (Added by TW Conv) Idiopathic aseptic necrosis of femur (HCC) Avascular necrosis of hip - Right - replaced (Added by TW Conv) Cough Cough - (Added b y TW Conv) History of rheumatoid arthritis Arthritis 03/29/2010 Hypertension 05/26/1986 Sleep apnea 03/29/2002 Benign prostatic hyperplasia 03/28/2016 Clotting disorder 08/26/2006 Thyroid disease Autoimmune disease 07/26/2010 Infection 06/30/2020 Kidney stone 03/16/2020 Type 2 diabetes mellitus (HCC) Prostatitis, chronic Lumbar herniated disc SOB (shortness of breath) Lung nodule Fatty liver TIA (transient ischemic attack) Chronic pain disorder Awareness under anesthesia Pt st brito he's woken up during multiple surgeries, reports that propofol with ketamine works H/O blood clots 2007 Lymphedema Dentures complicating chewing Family History Medical History Relation Name Comments Clotting disorder Father Boris Laws Depression Father Boris Laws Diabetes Father Boris Laws Hearing loss Father Boris Laws Heart attack Father Boris Laws Family history of myocardial infarction - (Added by TW Conv) Stroke Father Boris Laws Stroke Maternal Grandfather Olivier Schofield Cancer Maternal Grandmother Dina [place] COPD Mother's Brother Yoel Schofield Hypertension Mother's Brother Yoel Schofield Anxiety disorder Other 1 Family hist ory of Anxiety; Diabetes Other 2 Family history of Diabetes mellitus; Other Other 3 Family history of Irritable bowel disease; Heart disease Other 4 Family history of Heart disease; Osteoarthritis Other 5 Family histor y of Osteoarthritis; Other Other 6 Family history of Other; Colon cancer Other 7 Malignant Neopl asm, Colon - (Added by TW Conv) Cancer Paternal Grandfather Tad Laws Diabetes Paternal Grandfather Tad Villafanaw Hearing loss Paternal Grandmother Heather Laws Heart attack Paternal Grandmother Heather Villafanaw Depression Sister Becki Villafanaw Learning disabilities Son Shahbaz Villafanaw Relation Name Status Comments Father Boris Laws Maternal Grandfather Olivier Schofield Maternal Grandmother Dina [place] Mother's Brother Yoel Schofield Other 1 Other 2 Other 3 Other 4 Other 5 Other 6 Other 7 Paternal Grandfather Tad Villafanaw Paternal Grandmother Heather [place]af[place] Sister Becki Laws Son Shahbaz Laws Social History Tobacco Use Types Packs/Day Years [...] often do you attend chur ch or bahai services? Never 08/10/2021 Do you belong to any clubs o r organizations such as mormonism groups, unions, fraternal or athletic groups, or [...] place to sleep or slept in a halfway (including now)? No 08/10/2021 Sex and Gender Information Value Date Recorded Sex Assigned at Not on file Legal Sex Male 2:25 AM CARDROOM WORKER Gender Identity Male 02/03/2018 3:01 PM CARDROOM WORKER Sexual Orientation Straight 08/11/2018 6: 30 AM CDT Obstetrics History Last Filed Vital Signs Vital Sign Reading Time Taken Comments Blood Pressure 145/74 04/24/2024 9:08 AM CARDROOM WORKER Pulse 81 04/24/2024 9:08 AM CARDROOM WORKER Temperature 36.5 C (97.7 F) 04/03/2024 1:36 PM CARDROOM WORKER Respiratory Rate 18 04/03/2024 1:36 PM CARDROOM WORKER Oxygen Saturation 99% 04/24/2024 9:08 AM CARDROOM WORKER Inhaled Oxygen Concentration - - Weight 91.2 kg (201 lb) 04/24/2024 9:08 AM CARDROOM WORKER Height 182.9 cm (6' 0.01 ) 04/24/2024 9:08 AM CS T Body Mass Index 27.25 04/24/2024 9:08 AM CARDROOM WORKER Plan of Treatment Health Maintenance Due Date Last Done Comments Colon Cancer Screening-Colonoscopy 1969 Depression Screening 1969 Foot Exam 1969 DTaP/Tdap/Td Vaccine (1 - Tdap) 01/12/1980 Hepatitis B Screening 1987 Regular Well Visit/Exam 18-64 1987 Dilated Eye Exam 12/29/2018 12/29/2017 Zoster Vaccine (1 of 2) 2019 Covid-19 Vaccine (3 - 2023-2 5 season) 2023 11/20/2020, 10/23/2020 Albumin Creatinine Ratio, Urine 06/08/2024 06/09/2023, 05/12/2022, 08/04/2021 Lipid Panel 06/08/2024 06/09/2023, 10/27, 05/12/2022, Additional history exists Hemoglobin A1C 10/31/2024 05/03/2024, 10/26, 06/09/2023, Additional history exists eGFR 05/03/2025 05/03/2024, 05/26, 11/23/2022, Additional history exists Prostate Cancer Screening-PSA 11/07/2025 11/08/2023, 02/14/2017 Hepatitis C Screening Completed 09/13/2018, 013 Pneumococcal vaccine <65 Completed 02/12/2022, 08/26 Influenza Vaccine Completed 12/09/2023, , 02/02/2022, Additional history exists Medical Devices Implanted Type Area Dough Molder Hand Device Identifier Shelf Expiration Date Model / Serial / Lot Joint Replacement Right: Hip [employer] [id number] Stent Venous Wall [id number] - [id number] Implanted:Qty: 1 on 09/19/2020 by Mehran Wetzel MD at [facility] 07/16/2022 [id number] / / [id number] [employer] [id number] Stent Venous Wall [id number] - [id number] Implanted:Qty: 1 on 09/19/2020 by Mehran Wetzel MD at [facility] 07/08/2022 [id number] / / [id number] Procedures Procedure Name Priority Date/Time Associated Diagnosis Comments CT SACRUM COCCYX WO CONTRAST Schedule Routine, Read Routine (OP Routine) 05/04/2024 2:13 PM CARDROOM WORKER Coccyx pain CRP (ACUTE PHASE) Routine 05/03/2024 9:1 0 AM CARDROOM WORKER URIC ACID Routine 05/03/2024 9:10 AM CARDROOM WORKER Gouty arthritis Coccyx pain RHEUMATOID FACTOR Routine 05/03/2024 9:1 0 AM CARDROOM WORKER Gouty arthritis Coccyx pain ERYTHROCYTE SEDIMENTATION RATE Routine 05/03/2024 9:10 AM CARDROOM WORKER Gouty arthritis Coccyx pain CYCLIC CITRUL PEPTIDE ANTIBODY, IGG Routine 05/03/2024 9:10 AM CARDROOM WORKER Gouty arthritis Coccyx pain COMPREHENSIVE METABOLIC PANEL Routine 05/03/2024 9:10 AM CARDROOM WORKER Gouty arthritis Coccyx pain CBC WITH AUTO DIFFERENTIAL Routine 05/03/2024 9:10 AM CARDROOM WORKER Gouty arthritis Coccyx pain TESTOSTERONE, TOTAL AND FREE, SERUM Routine 05/03/2024 9:08 AM CARDROOM WORKER 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 Mild bilateral sacroiliac joint osteoarthritis without [...] Kavon Antony M.D. Narrative 05/04/2024 4:13 PM CARDROOM WORKER EXAMINATION: CT SACRUM COCCYX WO CONTRAST HISTORY: [...] CBC with auto differential (05/03/2024 9:10 AM CARDROOM WORKER) WBC 7.9 3.8 - 10.8 Thousand/u L [...] [facility] Blood 05/03/2024 9:10 AM CARDROOM WORKER 05/03/2024 9:10 AM CARDROOM WORKER Narrative [facility] - 05/04/2024 2:59 PM CARDROOM WORKER FASTING:YES FASTING: YES Gianni Montoya MD PhD LAB BLOOD ORDERABLE S Final Result Performing Organization Address [facility] de Phone Number [facility] [address] [place] [address] * Cyclic citrul peptide antibody, IgG (05/03/2024 9:10 AM CARDROOM WORKER) Cyclic citrullinated peptide ab, IgG <16 UNITS [facility] Comment: Reference Range Negative: <20 Weak Positive: 20-39 Moderate Positive: 40-59 Strong Positive: >59 Blood 05/03/2024 9:10 AM CARDROOM WORKER 05/03/2024 9:10 AM CARDROOM WORKER Narrative [facility] - 05/04/2024 2:59 PM CARDROOM WORKER FASTING:YES FASTING: YES Gianni Montoya MD PhD LAB BLOOD ORDERABLE S Final Result Performing Organization Address [facility] Phone Number [facility] [address] [place] [address] * Erythrocyte sedimentation rate (05/03/2024 9:10 AM CARDROOM WORKER) Pathologist [facility] Erythrocyte sedimentation rate 2 < OR = 20 mm/h [facility] Blood 05/03/2024 9:10 AM CARDROOM WORKER 05/03/2024 9:10 AM CARDROOM WORKER Narrative [facility] - 05/04/2024 2:59 PM CARDROOM WORKER FASTING:YES FASTING: YES Gianni Montoya MD PhD LAB BLOOD ORDERABLE S Final Result Performing Organization Address [facility] de Phone Number [facility] [address] [place] [address] * Rheumatoid factor (05/03/2024 9:10 AM CARDROOM WORKER) Rheumatoid factor, quant <10 <14 IU/mL [facility] Blood 05/03/2024 9:10 AM CARDROOM WORKER 05/03/2024 9:10 AM CARDROOM WORKER Narrative [facility] - 05/04/2024 2:59 PM CARDROOM WORKER FASTING:YES FASTING: YES Gianni Montoya MD PhD LAB BLOOD ORDERABLE S Final Result Performing Organization Address [facility] Co de Phone Number [facility] [address] [place] [address] * CRP (acute phase) (05/03/2024 9:10 AM CARDROOM WORKER) C-RP 3.3 <8.0 mg/L [facility] 05/03/2024 9:10 AM CARDROOM WORKER 05/03/2024 9:10 AM CARDROOM WORKER Narrative [facility] - 05/04/2024 2:59 PM CARDROOM WORKER FASTING:YES FASTING: YES Gianni Montoya MD PhD LAB BLOOD ORDERABLE S Final Result Performing Organization Address [facility] de Phone Number [facility] [address] [place] [address] * Uric acid (05/03/2024 9:10 AM CARDROOM WORKER) Uric acid 4.8 4.0 - 8.0 mg/dL [facility] Comment: Therapeutic target for gout patients: <6.0 mg/dL Blood 05/03/2024 9:10 AM CARDROOM WORKER 05/03/2024 9:10 AM CARDROOM WORKER Narrative [facility] - 05/04/2024 2:59 PM CARDROOM WORKER FASTING:YES FASTING: YES Gainni Montoya MD PhD LAB BLOOD ORDERABLE S Final Result Performing Organization Address [facility] de Phone Number [facility] [address] [facility] [place] [address] * Comprehensive metabolic panel (05/03/2024 9:10 AM CARDROOM WORKER) Glucose 90 65 - 99 mg/dL [facility] [...] [facility] Blood 05/03/2024 9:10 AM CARDROOM WORKER 05/03/2024 9:10 AM CARDROOM WORKER Narrative [facility] - 05/04/2024 2:59 PM CARDROOM WORKER FASTING:YES FASTING: YES us Gianni Montoya MD PhD LAB BLOOD ORDERABLE S Final Result [facility] [address] [place] [address] * (ABNORMAL) Testosterone, Total and Free, Serum (05/03/2024 9:08 AM CARDROOM WORKER) Testosterone 488 250 - 1,100 ng/dL [employer] Comment: For additional information, please refer to https://education.CytoViva/faq/PSB286 (This link is being provided for informational/educational purposes only.) (Note) This test was developed and its analytical performance characteristics have been determined by [employer]. It has not been cleared or approved by the FDA. This assay has been validated pursuant to the CLIA regulations and is used for clinical purposes. Testosterone, free 75.1 35.0 - 155.0 pg/mL [facility] Comment: (Note) This test was developed and its analytical performance characteristics have been determined by [employer]. It has not been cleared or approved by the FDA. This assay has been validated pursuant to the CLIA regulations and is used for clinical purposes. [facility] [address] [place] [address],[address] [place] [id number] Bindu Johnson MD, PhD Sex hormone binding globulin 55.9(H) 10 - 50 nmol/L [facility] Blood 05/03/2024 9:08 AM CARDROOM WORKER 05/03/2024 9:08 AM CARDROOM WORKER Narrative [facility] - 05/09/2024 5:18 PM CARDROOM WORKER FASTING:YES FASTING: YES Janet Thomas MD LAB BLOOD ORDERABLES Final Result [facility] [address] [place] [address], [address] [place] [address] * Hemoglobin A1c (05/03/2024 9:08 AM CARDROOM WORKER) Hgb A1C 5.0 <5.7 % of total Hgb [facility] Comment: For the purpose of screening for the presence of diabetes: <5.7% Consistent with the absence of diabetes 5.7-6.4% Consistent with increased risk for diabetes (prediabetes) > or =6.5% Consistent with diabetes This assay result is consistent with a decreased risk of diabetes. Currently, no consensus exists regarding use of hemoglobin A1c for diagnosis of diabetes in children. According to [place] Diabetes Association (ADA) guidelines, hemoglobin A1c <7.0% represents optimal control in non- diabetic patients. Different metrics may apply to specific patient populations. Standards of Medical Care in Diabetes(ADA). Blood 05/03/2024 9:08 AM CARDROOM WORKER 05/03/2024 9:08 AM CARDROOM WORKER Narrative [facility] - 05/09/2024 5:18 PM CARDROOM WORKER FASTING:YES FASTING: YES Janet Thomas MD LAB BLOOD ORDERABLES Final Result [facility] [address] [place] [address] * PSA screen (11/08/2023 7:59 AM CDT) PSA 0.65 < OR = 4.00 ng/mL [facility] Comment: The total PSA value from this assay system is standardized against the WHO standard. The test result will be approximately 20% lower when compared to the equimolar-standardized total PSA ([place]). Comparison of serial PSA results should be [...] MD LAB BLOOD ORDERABLES Final Result [facility] [address] [place] [address] * Albumin Creatinine Ratio, Urine (06/09/2023 8:13 [...] MD LAB URINE ORDERABLES Final Result [facility] [address] [place] [address] * (ABNORMAL) Lipid panel (06/09/2023 8:13 AM [...] factors. LDL-C is now calculated using the Ramin-Luis calculation, which is a validated novel method providing better accuracy than the Friedewald equation in the estimation of LDL-C. Ramin CAMPUZANO et al. MARC. 2013;310(19): 4199-2779 (http://education.DOZ/faq/NKS269) Chol/HDL ratio 4.0 <5.0 (calc) [facility] Non-HDL, (LDL+VLDL) 109 <130 mg/dL (calc) [facility] Comment: For patients with diabetes plus 1 major ASCVD risk factor, treating to a non-HDL-C goal of <100 mg/dL (LDL-C of <70 mg/dL) is considered a therapeutic option. Blood 06/09/2023 8:13 AM CDT 06/09/2023 8:14 AM CDT us Janet Thomas MD LAB BLOOD ORDERABLES Final Result [facility] [address] [facility] [place] [address] * Hepatitis C antibody (09/13/2018 3:10 PM CDT) Hep C Ab Nonreactive Nonreactive [facility] Comment: Interpretive Data Positive results should be confirmed by a molecular method. If positive, a second separately collected sample should be submitted for Hepatitis C Virus (HCV) RNA Detection and Quantitation by Real-Time Reverse Banana Room Cutter-PCR (RT-PCR). Current interpretive data was last revised on 2016. Blood specimen (specimen) 09/13/2018 3:10 PM CDT 09/13/2018 6:52 PM CDT us Ross Terrell MD PhD LAB MICROBIOL OGY - GENERAL ORDERABLES Edited Result - Final [facility] Department [place] [address] from Last 3 Months or Most Recently Relevant to Health Maintenance Insurance [facility] CHOICE PLUS Care Teams Hatchery Attendant Relationship Specialty Start Date End Date Boris Laws MD PCP - General 08/13/16 Janet Thomas MD Referring Physician Endocrinology Diabetes & Metabolism 07/04/19 Sherie Ocasio MD [address] [address] Referring Physician Rheumatology 07/04/19 Celso Martinez MD [address] [place] [address] Consulting Physician Urology 07/04/19 Stephen Lopez MD [address] [place] [address] Referring Physician Neurology 07/04/19 Michel Atkins MD [address] [address] Referring Physician Hematology 07/22/[address] [facility], [address] [place] [address] Internal Medicine 05/10/[address] [facility], [address] [place] [address] Internal Medicine 08/19/22
--- OUTSIDE RECORDS SUMMARY | 2024-06-15 00:45 | XMS_ITS | Data Portability ---
Author Organization [facility], Main Office Address [address] [place] [address] [address] [place] [address] Care Team Providers Care Screen Printer Name Role Phone EBEN PHILLIP Primary Care Provider Assessment No assessment recorded. Plan of Treatment Reminders Order Date Submit Date Provider Last Modified By Organization Details Last Modified Time Details Appointments None record ed. Lab None record ed. Referral None record ed. Procedures None record ed. Surgeries None record ed. Imaging None record ed. Medication Orders None record ed. Patient TargetsNo targets recorded. Patient Instructions Encounter Date Encounter Id Patient Instructions Last Modified By Organization Details Last Modified Time 11/07/2018 [id number] hemorrhoids: car e instructions Not available 11/08/2018 16:24:41 He will follow u p with me only as needed. On today's visit I spent a total of {{30 35 40 45 50 55* 60}} minutes [id number] with the patient and over 50% of this time was spent discussing treatment options, risks/benefits of each option and alternatives and answering his questions. Not available 11/08/2018 16:23:16 Reason for Referral None Reported. Problems Name Problem SNOMED Code Status Onset Date Resolution Date Notes Provider Name and Address Organization Details Recorded Time Pile easily reducible 537792249 Active 201811/07/18 : No Tx - not needed Awa Munroe MD [address] [facility],[address], [place], [address] [place] [address] [facility] 9 16:23:39 External hemorrhoid s 11970211 Active 2018 Awa Munroe MD [address] [facility],[address], [place], [address] [place] [address] [facility] 9 22:36:49 Irritable bowel syndrome characteri zed by alternatin g bowel habit 592771403 Active 2018 Awa Munroe MD [facility],[address], [place], [address], [facility] 9 22:40:17 History of pulmonary embolus 259670155 Active 2018 Awa Munroe MD [address] [place] [address],[address], [place], [address], [facility] 9 22:44:50 History of total hip arthroplas ty 046146008823 Active 2018 Awa Munroe MD [address] [place] [address],[address], [place], [address], [facility] 9 16:20:12 History of polyp of colon 444543071 Active 2018 Awa Munroe MD [address] [place] [address],[address], [place], [address], [facility] 9 16:20:54 Lymphedema of lower extremity 993654585 Active 2018 Awa Munroe MD [address] [place] [address],[address], [place], [address], [facility] 9 16:22:17 Type 2 diabetes mellitus 31634640 [place] 2018 [place] [address] [place] [address],[address], [place], [address], [facility] 9 16:22:21 Problem Notes None recorded. Procedures Surgical History Date Name Laterality Status Provider Name and Address Organization Details Recorded Time 11/08/19 19 Anoscopy completed Awa Munroe MD [address] [place] [address],[address], [place], [address], [facility] 11/07/2018 22:33:55 03/28/19 14 Hip Replacement completed [facility] 11/07/2018 15:01:02 03/28/19 09 Colonoscopy completed [facility] 11/07/2018 15:00:30 Hernia Repair completed [facility] 11/07/2018 15:00:57 Tonsillectomy completed [facility] 11/07/2018 15:01:06 Bladder Surgery completed [facility] 11/07/2018 15:01:20 Imaging Results None recorded. Procedure Notes None recorded. Medical Equipment None Reported. Allergies Allergen ID Allergen Name Allergen Category Reaction Reaction Severity Criticality Documentation Date Start Date Code Code System Note Provider Name and Address Organization Details Recorded Time 2580 vancomyci n medicatio n other Not available Not available 11/07/2018 62543 RxNorm Renal failu re Not Available Not Available Not Available Medications Name Sig Start Date Stop Date Status Note LastModified by Organization Details LastModified Time losartan 50 mg tablet active Not Available Not Available No t Available amoxicillin 500 mg capsule 11/07 completed Not Available Not Available Not Available furosemide 40 mg tablet active Not Available Not Available No t Available buspirone 5 mg tablet 11/07 completed Not Available Not Available Not Available alprazolam 1 mg tablet active Not Available Not Available No t Available tizanidine 4 mg tablet active Not Available Not Available No t Available methadone 10 mg tablet active Not Available Not Available No t Available diphenoxylate -atropine 2.5 mg-0.025 mg tablet active Not Available Not Available Not Available methotrexate sodium 25 mg/mL injection solution 11/07 completed Not Available Not Available Not Available spironolacton e 25 mg tablet active Not Available Not Available Not Available oxycodone 15 mg tablet active Not Available Not Available No t Available tamsulosin 0.4 mg capsule active Not Available Not Available Not Available buspirone 10 mg tablet 11/07 completed Not Available Not Available Not Available olopatadine 0.1 % eye drops 11/07 completed Not Available Not Available Not Available montelukast 10 mg tablet active Not Available Not Available Not Available BD Tuberculin Syringe 1 mL 25 gauge x 5/8 active Not Available Not Available Not Available testosterone cypionate 200 mg/mL intramuscular oil active Not Available Not Available Not Available levofloxacin 500 mg tablet 11/07 completed Not Available Not Available Not Available Vitamin D2 1,250 mcg (50,000 unit) capsule active Not Available Not Available Not Available BD Luer-Charlie Syringe 3 mL 21 gauge x 1 1/2 active Not Available Not Available Not Available hydromorphone 4 mg tablet 11/07 completed Not Available Not Available Not Available dicyclomine 10 mg capsule active Not Available Not Availabl e Not Available AcipHex 20 mg tablet,delaye d release Take 1 tablet twice a day by oral route. active Not Available Not Available No t Available methotrexate sodium (PF) 25 mg/mL injection solution active Not Available Not Available Not Available duloxetine 60 mg capsule,delay ed release active Not Available Not Available N ot Available Lyrica 200 mg capsule active Not Available Not Available Not Available Vitamin D active Not Available Not Purvi ilable Not Available ProAir HFA 90 mcg/actuation aerosol inhaler 11/07 completed Not Available Not Available Not Available Januvia 100 mg tablet active Not Available Not Available No t Available Combivent Respimat 20 mcg-100 mcg/actuation solution for inhalation 11/07 completed Not Available Not Available Not Available TRUEplus Lancets 30 gauge 11/07 completed Not Available Not Available Not Available Eliquis 5 mg tablet active Not Available Not Available Not Available Multi Vitamin active Not Available Not Available Not Available Citracal-D3 Gummies active Not Available Not Available Not Available Vitals Date Recorded Body height Body mass index (BMI) Body weight Heart rate Respiratory rate Body temperature Systolic blood pressure Diastolic blood pressure Provider Name and Address Organization Details Last Updated DateTime 9 182.88 cm 47.1 kg/m2 284942. 55 g 100 /min 14 /min 98.3 [degF] 134 mm[Hg] 70 mm[Hg] Mai Juárez [facility] 9 15:11:41 Social History Question Answer Notes LastModified by Organizat ion Details LastModified Time Tobacco Smoking Status Never Smoker Mai martinez [facility] 11/07/2018 14:59:32 Do You Or Have You Ever Used E-cigarettes Or Vape? Never Used Electronic Cigarettes Information not available 11/07/2018 Alcohol Use No Information n ot available 11/07/2018 Caffeine Use Yes Information not available 11/07/2018 Caffeine Type Coffee Information not available 11/07/2018 Caffeine Amount 2 Cups Information not available 11/07/2018 Do You Or Have You Ever Used Smokeless Tobacco? Currently Chews Tobacco Information not available 11/07/2018 How Many Years Have You Smoked Tobacco? 34 Information not available 11/07/2018 Sex: Unknown Functional Status None recorded. Mental Status None recorded. Family History Relationship Description Onset Age of this Age Resolved Age Notes LastModified by Organization Details LastModified Time Maternal Grandmother Malignant tumor of colon Not available 2018 14:58:03 Maternal Grandmother Polyp of colon Not available 2018 14:58:40 Maternal Grandmother Hypertensive disorder Not available 2018 14:58:52 Paternal Grandfather Malignant tumor of colon Not available 2018 14:58:03 Paternal Grandfather Diabetes mellitus Not available 2018 14:59:12 Mother Polyp of colon Not available 2018 14:58:40 Mother Chronic kidney disease stage 3 Not available 2018 14:59:26 Father Polyp of colon Not available 2018 14:58:40 Father Heart disease Not available 2018 14:59:01 Father Diabetes mellitus Not available 2018 14:59:12 Sister Polyp of colon Not available 2018 14:58:40 Paternal Grandmother Polyp of colon Not available 2018 14:58:40 Medical History Condition Response Coronary Artery Disease N Other Y Atrial Fibrillation N Kidney Stones N Hyperthyroidism N Hernia N Depression Y COPD N Glaucoma N Hypothyroidism N Accidental Bowel Leakage N Headaches/Migraines N Deep Vein Thrombosis Y Anxiety Disorder Y Cardiac Dysrhythmia N MRSA/VRE Exposure N Genital Herpes N Diverticulosis N Cancer N Stroke Y Head Trauma N Crohn's Disease N Genital Warts N Liver Disease/Hepatitis N HIV/AIDS N High Cholesterol N Irritable Bowel Syndrome Y Autoimmune Disease Y Kidney Disease N Anemia Y Arthritis/Gout Y Celiac Disease N Anal/Rectal Trauma/Injury N Diabetes Y Cataracts N Bleeding Disorder N Seizures/Epilepsy N Congestive Heart Failure (CHF) N Diverticulitis N Heart Attack N Asthma N Reflux/GERD Y Ulcerative Colitis N Sleep Apnea Y Mitral Valve Prolapse N Aneurysm N Heart Disease N Pulmonary Embolism Y Hypertension Y Colon/Rectal Polyps Y Immunizations Vaccine Type Date Status Note Provider Nam e and Address Organization Details Recorded Time Pneumococcal conjugate PCV 13 7 completed Argelia Cardenas [facility] 01/26/2019 11:35:29 Influenza, split virus, quadrivalent, preservative 8 completed Awa Munroe MD [address] [place] [address],[address], [place], [address], [facility] 11/07/2018 14:59:41 Past Encounters Encounter ID Performer Location Encounter Start Date Encounter Closed Date Diagnosis/Indication Diagnosis SNOMED-CT Code Diagnosis ICD10 Code Diagnosis Note [id number] Awa Munroe MD Main Office [address] [place] [address] [address] [place] [address] 11/07/2018 14:51:16 11/07/2018 16:36:50 Pile easily reducible 231599306 K64.1 Stage 1 - 2 internal hemorrhoid s: I discussed hemorrhoid s in general with him as well as the treatment options. He now understand s that any non-surgic al treatment (infrared coagulatio n or banding) would be done on his internal hemorrhoid s. His internals are not terribly enlarged and he has not symptoms from them. I do not think he needs to have any procedures done (especiall y since he is on the Eliquis). I advised him to monitor his symptoms and if he does develop more persistent symptoms, he will follow up and we can do a couple of [facility] treatments on him. I would have to finish full informed consent before doing so. External hemorrhoids 239 [address]201 K64.4 He now understand s that the only way to directly treat external hemorrhoid s/skin tags would be with a surgical excision. He should not do this (and is not interested in having surgery). I advised that he should change to the moist wipes and also consider simply taking shower to get clean after a BM (or consider getting a bidet). I advised he can use a good skin protectant (zinc oxide) if he does have external irritation (his bridgette-anal skin actually looks good). Irritable bowel syndrome characterized by alternating bowel habit 179115964 K58.9 He of course needs to be eating the diet that works best for him. I advised that he can try taking very low dose Miralax daily and then increase the dose if he knows he has eaten poorly and will get constipati on. History of pulmonary embolus 982001049 Z86.711 He has had the multiple DVT's and PE. His most recent LE doppler in September was negative for any clot. He remains on the Eliquis. History of total hip arthroplasty 6959851302 06 Z96.649 History of polyp of colon 512845879 Z86.010 He is probably due for a colonoscop y. He is seeing his gastroente rologist soon. Lymphedema of lower extremity 046471149 I89.0 Type 2 giulia betes mellitus 71793332 E11.8 Health Concerns Section Related Observation LastModified by Organization Detai ls LastModified Time None Recorded Concern Status LastModified by Organization Details LastModified Time None Recorded Advance Directives Directive None Recorded Payers Encounter Date Sequence Insurance Name Policy Number Policy Jasmine Covered Member ID Jasmine Member ID Guarantor Name 11/07/2018 1 [place] [id number] Jesus Phillip [id number] Jesus Phillip Notes Date Note Type Note Provider Name and Address Organization Details Recorded Time 11/07/2018 text/html This is a very p leasant 48 year old man who has had symptoms from his hemorrhoids on and off since 2013. 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 He was given high dose Vancomycin for this and developed renal failure from the Vanc. Evidently he did not pass a BM during the entire time that he was in the coma. When he did finally have a BM after at least a week, he states it was as big as a football and was really hard . Over the years he has had some swelling and discomfort/pain from his hemorrhoids. These have improved as he has been eating a higher fiber diet. 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 He had been on warfarin until 04/2018 (he developed a recurrent DVT while on the warfarin so he was switched to Eliquis). When he was on the warfarin he had more frequent and heavier bleeding from his hemorrhoids. Since he has been on the Eliquis, his bleeding has stopped. He knows he is due for a colonoscopy and he is somewhat reluctant to have this done because of his hemorrhoid issues. He presents today for an evaluation and to discuss his treatment options. Bleeding: As above, he had bright red blood on the wipe with some BM's. He has not had any bleeding since April,. Pain: None Itching: He states he gets external anal itching about 2 times monthly. This resolves very quickly with re-wiping. He does not have to use any products to help with the itching. Discharge: His biggest complaint about his hemorrhoids is having difficulty getting clean after BM's. He is not using the moist wipes. Once he gets clean, he has no difficulty staying clean most of the time (he does have the scant leakage about 2 times monthly but this is not bad). He has never had leakage heavy enough that he has to wear a pad. Prolapse: Not that he feels or has to manually reduce. External swelling: He has always had some external swelling. This has not really enlarged over the last few years. Discomfort: He has the minor external irritation as above. He denies any internal symptoms of pressure, a sense of being blocked when trying to have a BM or a sense of incomplete emptying after BM's. Previous Hemorrhoid Treatment: He has never had to use OTC hemorrhoid creams. He has never had a prescription for or procedure on his hemorrhoids. Previous Lower GI Endoscopy: He estimates that he has had 15 colonoscopies throughout this life due to stomach issues and colon polyps. It has been 8 - 10 years since his last scope by his report. He has an appointment with his warehouse associate driver in about a month. Bowel Habits: Besides the incident when he was hospitalized, he has had significant issues with constipation throughout this life. Over the last few years his BM's have been much better because he has been watching his diet. He admits that he will occasionally have a harder BM if he has dietary indiscretions. He occasionally takes docusate but it takes a few days for it to be effective. If he takes it too long however, he will get multiple loose BM's and states this is almost worse than the constipation . He has never taken Miralax consistently. Awa Munroe MD [address] [facility],[address], [place], [address], [facility] 11/08/2018 16:24:44
--- OUTSIDE RECORDS SUMMARY | 2024-06-15 00:45 | XMS_ITS | Encounter Summary ---
Author Organization [facility] Address [facility] [place] [address] Care Team Providers Care Lining Folder Name Role Phone Boris Laws MD Primary Care Provider [phone] Chao Smallwood MD Unavailable [phone] Mehran Wetzel MD Unavailable Encounter Details Date Type Department Care Team (Late st Contact Info) Description 04/11/2021 [employer] Message Enc [facility], [address] [place] [address] Chao Smallwood MD [facility], [address] [place] [address] MRI With Full Anesthesia and Pending Appointment Social History Tobacco Use Types Packs/Day Years [...] Description 08/13/2024 2:30 PM CDT Office Visit [facility] [address] [place] [address] Chao Smallwood MD Three [facility] [address] [place] [address] documented as of this encounter Visit Diagnoses Not on filedocumented in this encounter Care Teams Lining Folder Relationship Specialty [place] [address] [phone] PCP - General INTERNAL MEDICINE 01/01/21 Chao Smallwood MD Three [facility] [address] [place] [address] Physician CARDIOVASCULAR DISEASE 01/20/21 Mehran Wetzel MD [address] [address] CARDIOVASCULAR DISEASE 01/20/21 documented as of this encounter
--- OUTSIDE RECORDS SUMMARY | 2024-06-15 00:45 | XMS_ITS | Encounter Summary ---
Author Organization [facility] Address [facility] [place] [address] Care Team Providers Care Keeper Head Name Role Phone Boris Laws MD Primary Care Provider [phone] Chao Smallwood MD Unavailable [phone] Mehran Wetzel MD Unavailable Encounter Details Date Type Department Care Team (Late st Contact Info) Description 04/01/2022 [employer] Message Enc [facility] [address] [place] [address] Chao Smallwood MD [facility], [address] [place] [address] Attn: Janet Banerjee Social History Tobacco Use Types Packs/Day Years [...] as of this encounter Progress Notes * Diya Velarde RN - 04/01/2022 3:06 PM CST . ING ENGINEER documented in this encounter Plan of Treatment Upcoming Encounters Date Type Department Care Team (Late st Contact Info) Description 08/13/2024 2:30 PM CDT Office Visit [facility] [address] [place] [address] Chao Smallwood MD Three [facility] [address] [place], [place] [id number] documented as of this encounter Visit Diagnoses Not on filedocumented in this encounter Care Teams Keeper Head Relationship Specialty [place] [address] [address] PCP - General INTERNAL MEDICINE 01/01/21 Chao Smallwood MD Three [facility]., [address] [place] [id number] Physician CARDIOVASCULAR DISEASE 01/20/21 Mehran Wetzel MD [address] [facility] [address] [place] [address] CARDIOVASCULAR DISEASE 01/20/21 documented as of this encounter
--- OUTSIDE RECORDS SUMMARY | 2024-06-15 00:45 | XMS_ITS | Encounter Summary ---
Author Organization [facility] Address [address] [place] [address] Care Team Providers Care Material Reprocessing Associate Name Role Phone Boris Laws MD Primary Care Provider [phone] Chao Smallwood MD Unavailable [phone] Mehran Wetzel MD Unavailable Encounter Details Date Type Department Care Team (Late st Contact Info) Description 01/19/2021 [employer] Message Enc [facility], [address] [place], [place] [phone] Chao Smallwood MD [facility], [address] [place] [address] Question Social History Tobacco Use Types Packs/Day Years Used Date Smoking Tobacco: Never Smokeless Tobacco: Current Chew Comments:1/2 can daily for t he past 36 years Alcohol Use Standard Drinks/Week Comments Not Currently [...] file Not on file Not on file COVID-19 Exposure Response Date Recorded In the last month, have you been in contact with someone who was confirmed or suspected to have Coronavirus / COVID-19? No / Unsure 01/19/2021 8:39 AM CDT documented as of this encounter Progress Notes * Hedy Webster RN - 01/19/2021 3:11 PM CDT Please see below documented in this encounter Plan of Treatment Upcoming Encounters Date Type Department Care Team (Late st Contact Info) Description 08/13/2024 2:30 PM CDT Office Visit [facility] [address] [place] [address] Chao Smallwood MD [facility], [address] [place] [address] documented as of this encounter Visit Diagnoses Not on filedocumented in this encounter Care Teams Material Reprocessing Associate Relationship Specialty [place] [address] [phone] PCP - General INTERNAL MEDICINE 01/01/21 Chao Smallwood MD [facility], [address] [place] [id number] Physician CARDIOVASCULAR DISEASE 01/20/21 Mehran Wetzel MD [address] [address] CARDIOVASCULAR DISEASE 01/20/21 documented as of this encounter
--- OUTSIDE RECORDS SUMMARY | 2024-06-15 00:45 | XMS_ITS | Encounter Summary ---
Author Organization [facility] Address [facility] [place] [address] Care Team Providers Care Cold Storage Supervisor Name Role Phone Boris Laws MD Primary Care Provider [phone] Chao Smallwood MD Unavailable [phone] Mehran Wetzel MD Unavailable Encounter Details Date Type Department Care Team ([facility] Contact Info) Description 02/26/2021 Abstract [facility] [address] Jin Schmidt MA Social History Tobacco Use Types Packs/Day Years [...] have Coronavirus / COVID-19? No / Unsure 02/09/2021 10:53 AM BLOW PIT HELPER documented as of this encounter Plan of Treatment Upcoming Encounters Date Type Department Care Team (Late st Contact Info) Description 08/13/2024 2:30 PM CDT Office Visit [facility] [address] [place] [address] Chao Smallwood MD [facility] [address] [place], [place] [id number] documented as of this encounter Procedures Procedure Name Priority Date/Time Associated Diagnosis Comments BUN (OUTSIDE LAB) Routine 02/13/2021 CREATININE Routine 02/13/2021 documented in this encounter Results * CREATININE (02/13/2021) CREATININE S/P/B 0.90 0.7 - 1.3 EGFR NON-AFR. AMER. >60 <=90 02/13/2021 [facility] Abstract LABORATORY Final Result * BUN (OUTSIDE LAB) (02/13/2021) BUN 15 02/13/2021 us [facility] Abstract LAB-OUTSIDE/ABSTRACTED Edite d Result - Final documented in this encounter Visit Diagnoses Not on filedocumented in this encounter Care Teams Cold Storage Supervisor Relationship Specialty [place] [address] [phone] PCP - General INTERNAL MEDICINE 01/01/21 Chao Smallwood MD [address] [place] [address] Physician CARDIOVASCULAR DISEASE 01/20/21 Mehran Wetzel MD [address] [facility] [address] [place] [address] CARDIOVASCULAR DISEASE 01/20/21 documented as of this encounter
--- OUTSIDE RECORDS SUMMARY | 2024-06-15 00:45 | XMS_ITS | CONTINUITY OF CARE DOCUMENT ---
Author Name scot ellison Address Unknown Organization [facility] Address [id number] [place] [address] [address] [place] [address] Phone [phone] Care Team Providers Care Warehouse Packer Name Role Phone Mynor Webb MD Unavailable EBEN PHILLIP MD Unavailable EBEN PHILLIP MD Unavailable [phone] PROBLEMS Condition Status Date Provider Notes Benign essential hypertension active Ceferino Guo MD Chronic pain syndrome active Ceferino Guo MD Iron deficiency anemia active Ceferino Guo MD Family History of Hypertension: active ? Maury Webb MD Leg pain completed - Mynor Webb MD Leg pain active Mynor Webb MD VENOUS INSUFFICIENCY active Mynor Webb MD Hoarseness active Ceferino Guo MD Fibromyalgia active Ceferino Guo MD Sleep apnea active Ceferino Guo MD Rheumatoid arthritis active Ceferino Banerjee Hypertrophy (benign) of prostate active Ceferino Guo MD Irritable bowel syndrome active Ceferino Juan ud, MD Anemia, unspecified active Ceferino Guo MD FH Diabetes active ? Ceferino Guo MD ENCOUNTERS Date Type Provider Location Encounter Diag nosis - In-person encounter Office Visit Mynor Webb MD [facility] Leg painLeg painVENOUS INSUFFICIENCY - In-person encounter Office Visit Mynor Webb MD [facility] - In-person encounter Office Visit Mynor Webb MD [facility] Family History of Hypertension: - In-person encounter Office Visit Ceferino Guo MD [facility] - In-person encounter Office Visit Ceferino Guo MD [facility] Hoarseness - In-person encounter Office Visit Ceferino Guo MD [facility] Iron deficiency anemia - In-person encounter Office Visit Ceferino Guo MD [facility] FH DiabetesAnemia, unspecifiedIrritable bowel syndromeBenign essential hypertensionHypertrophy (benign) of prostateRheumatoid arthritisChronic pain syndromeSleep apneaFibromyalgia VITAL SIGNS Date Observation Value Provider Body Mass Index (Ratio) 47.33 kg/m2 Maury Webb MD blood pressure, cuff size regular Ke frannie Mann blood pressure, diastolic 87 mm[Hg] Ramirez Mann blood pressure, systolic 150 mm[Hg] Gunnar Mann oxygen saturation, oximetry 90 % Kat Mann respiratory rate E&M 18 /min Kat tyler pulse rate 103 /min Kat braswell weight E&M 349 [lb_av] Kat braswell height E&M 72 [in_i] Kat braswell blood pressure, diastolic 80 mm[Hg] Fish isellie Marilin blood pressure, systolic 128 mm[Hg] Aracely Gaston oxygen saturation, oximetry 98 % Kay Gaston pulse rate 93 /min Kay Gaston respiratory rate E&M 16 /min Kay Gaston Body Mass Index (Ratio) 47.87 kg/m2 Antonio Gaston weight E&M 353 [lb_av] Kay Gaston blood pressure, diastolic 60 mm[Hg] Florina Shanks blood pressure, systolic 110 mm[Hg] Nieves Shanks pulse rate 87 /min Helder torreson oxygen saturation, oximetry 95 % Helder Shanks respiratory rate E&M 18 /min Jose Shanks Body Mass Index (Ratio) 45.19 kg/m2 Aminata Shanks weight E&M 333.2 [lb_av] Helder valladares blood pressure, diastolic 60 mm[Hg] Florina Shanks blood pressure, systolic 150 mm[Hg] Nieves Shanks pulse rate 98 /min Helder li oxygen saturation, oximetry 96 % Helder Shanks respiratory rate E&M 18 /min Jose Shanks Body Mass Index (Ratio) 44.78 kg/m2 Aminata Shanks weight E&M 330.2 [lb_av] Helder valladares blood pressure, diastolic 97 mm[Hg] Florina Shanks blood pressure, systolic 156 mm[Hg] Nieves Shanks pulse rate 117 /min Helder li oxygen saturation, oximetry 196 % Helder Shanks respiratory rate E&M 18 /min Jose Shanks Body Mass Index (Ratio) 44.64 kg/m2 Aminata Shanks weight E&M 329.2 [lb_av] Helder garciaon blood pressure, diastolic 86 mm[Hg] Sh myles Demecs RN blood pressure, systolic 148 mm[Hg] Sha sta Demecs RN pulse rate 110 /min [place] [facility] R N oxygen saturation, oximetry 93 % [place] [facility] RN respiratory rate E&M 22 /min [facility] Body Mass Index (Ratio) 43.99 kg/m2 [facility] RN weight E&M 324.4 [lb_av] [place] [facility] RN blood pressure, diastolic 100 mm[Hg] myles [facility] RN blood pressure, systolic 160 mm[Hg] [facility] RN pulse rate 118 /min [place] Dem[facility] R N oxygen saturation, oximetry 95 % [place] [facility] RN respiratory rate E&M 28 /min [place] [facility] RN Body Mass Index (Ratio) 44.67 kg/m2 Silvia ta [facility] RN weight E&M 329.4 [lb_av] Shilpi [facility] RN Body Mass Index (Ratio) 44.67 kg/m2 Carter Fultondney weight E&M 329.4 [lb_av] [facility] blood pressure, diastolic 100 mm[Hg] Heber sumit Kiki blood pressure, systolic 160 mm[Hg] Heber sumit Kiki pulse rate 118 /min [facility] oxygen saturation, oximetry 95 % [facility] respiratory rate E&M 28 /min Niranjan Kiki blood pressure, diastolic 85 mm[Hg] Florina Shanks blood pressure, systolic 156 mm[Hg] Nieves Shanks Body Mass Index (Ratio) 44.32 kg/m2 Aminata Shanks pulse rate 105 /min Helder li oxygen saturation, oximetry 92 % Helder Shanks respiratory rate E&M 18 /min Jose Shanks weight E&M 326.8 [lb_av] Helder valladares height E&M 72 [in_i] Helder Campos [facility] ALLERGIES Allergy Name Onset Date Reaction Criticality Status VANCOMYCIN Low Criticality active RESULTS Date Observation Value Provider Reference Range Interpretation Location 8 urea nitrogen/creatinine ratio, serum 8.8 [facility] - 8 Estimated Glomerular Filtration Rate (calc) 110.1 (?) [facility] 59.0 - 8 chloride, serum 94.9 mmol/L [facility] 98.0 - 107.0 Low 8 potassium, serum 3.8 mmol/L [facility] 3.5 - 5.1 8 sodium, serum 138.0 mmol/L [facility] 136.0 - 145.0 8 creatinine, serum 0.8 mg/dL [facility] 0.7 - 1.2 8 carbon dioxide, venous blood 30.0 mmol/L [facility] 22.0 - 29.0 High 8 calcium, serum 9.2 mg/dL [facility] 8.6 - 10.2 8 urea nitrogen, blood 7.0 mg/dL [facility] 6.0 - 20.0 8 blood glucose, random 186.0 mg/dL [facility] 74.0 - 99.0 High 8 ferritin, serum 60.0 ng/mL [facility] 30.0 - 400.0 8 red blood cell distribution width, size density 50.0 fL [facility] - 8 immature granulocytes, percentage of total cells, blood 0.8 % [facility] - 8 nucleated red blood cells as percent of blood leukocytes 0.0 % [facility] - 8 red blood cell (erythrocyte) count, per high power field 0.0 10*3/UL [facility] - 8 eosinophils as percent of blood leukocytes 2.5 % [facility] - 8 neutrophils as percent of blood leukocytes 62.0 % [facility] - 8 Absolute Neutrophils 6.6 CELLS/UL [facility] 1.5 - 7.8 8 basophils as percent of blood leukocytes 0.7 % [facility] - 8 Absolute Basophils 0.1 CELLS/UL [facility] 0.0 - 0.2 8 monocytes as percent of blood leukocytes 7.6 % [facility] - 8 Absolute Monocytes 0.8 CELLS/UL [facility] 0.2 - 1.0 8 lymphocytes as percent of blood leukocytes 26.4 % [facility] - 8 Absolute Lymphocytes 2.8 CELLS/UL [facility] 0.9 - 3.9 8 mean platelet volume 10.6 (?) [facility] - 8 platelet count 263.0 THOUSAND/ UL [facility] 100.0 - 400.0 8 mean corpuscular hemoglobin concentration, RBC 30.5 G/DL [facility] 31.0 - 38.0 Low 8 mean corpuscular hemoglobin, RBC 27.6 pg [facility] 25.0 - 35.0 8 mean corpuscular volume, RBC 90.7 fL [facility] 75.0 - 100.0 8 hematocrit, blood 47.6 % [facility] 35.0 - 55.0 8 hemoglobin, blood 14.5 g/dL [facility] 11.5 - 16.5 8 erythrocyte count, whole blood 5.3 MILLION/U L [facility] 3.5 - 5.5 8 iron, serum 37.0 ug/dL [facility] 31.0 - 144.0 8 reticulocyte count, absolute 0.092 10*6 CELLS/UL [facility] - 8 reticulocyte count, blood, uncorrected 1.75 % [facility] 0.50 - 2.00 7 thyroid stimulating hormone, serum 2.120 ?IU/ML [facility] 0.270 - 4.200 7 red blood cell distribution width, size density 47.5 fL [facility] - 7 immature granulocytes, percentage of total cells, blood 0.3 % [facility] - 7 nucleated red blood cells as percent of blood leukocytes 0.0 % [facility] - 7 red blood cell (erythrocyte) count, per high power field 0.0 10*3/UL [facility] - 7 eosinophils as percent of blood leukocytes 2.9 % [facility] - 7 neutrophils as percent of blood leukocytes 63.0 % [facility] - 7 Absolute Neutrophils 7.2 CELLS/UL [facility] 1.5 - 7.8 7 basophils as percent of blood leukocytes 0.8 % [facility] - 7 Absolute Basophils 0.1 CELLS/UL [facility] 0.0 - 0.2 7 monocytes as percent of blood leukocytes 7.7 % [facility] - 7 Absolute Monocytes 0.9 CELLS/UL [facility] 0.2 - 1.0 7 lymphocytes as percent of blood leukocytes 25.3 % [facility] - 7 Absolute Lymphocytes 2.9 CELLS/UL [facility] 0.9 - 3.9 7 mean platelet volume 10.2 (?) [facility] - 7 platelet count 242.0 THOUSAND/ UL [facility] 100.0 - 400.0 7 mean corpuscular hemoglobin concentration, RBC 31.5 G/DL [facility] 31.0 - 38.0 7 mean corpuscular hemoglobin, RBC 28.5 pg [facility] 25.0 - 35.0 7 mean corpuscular volume, RBC 90.6 fL [facility] 75.0 - 100.0 7 hematocrit, blood 47.3 % [facility] 35.0 - 55.0 7 hemoglobin, blood 14.9 g/dL [facility] 11.5 - 16.5 7 erythrocyte count, whole blood 5.2 MILLION/U L [facility] 3.5 - 5.5 7 anion gap, serum 14.0 [facility] - 7 albumin/globulin ratio, serum 2.5 g/dL [facility] 1.1 - 2.5 7 globulin, serum 3.2 [facility] 2.3 - 3.8 7 urea nitrogen/creatinine ratio, serum 10.0 [facility] - 7 Estimated Glomerular Filtration Rate (calc) 129.0 (?) [facility] 59.0 - 7 chloride, serum 95.0 mmol/L [facility] 98.0 - 107.0 Low 7 potassium, serum 4.2 mmol/L [facility] 3.5 - 5.1 7 sodium, serum 137.0 mmol/L [facility] 136.0 - 145.0 7 creatinine, serum 0.7 mg/dL [facility] 0.7 - 1.2 7 carbon dioxide, venous blood 28.0 mmol/L [facility] 22.0 - 29.0 7 albumin, serum 4.3 g/dL [facility] 3.5 - 5.2 7 calcium, serum 9.0 mg/dL [facility] 8.6 - 10.2 7 aspartate aminotransferase (SGOT), serum 40.0 1/L [facility] 0.0 - 40.0 7 alkaline phosphatase, serum 93.0 1/L [facility] 40.0 - 130.0 7 alanine aminotransferase (SGPT), serum 38.0 1/L [facility] 0.0 - 41.0 7 protein, total, serum 7.5 g/dL [facility] 6.6 - 8.7 7 bilirubin, serum, total 0.4 mg/dL [facility] 0.0 - 1.2 7 urea nitrogen, blood 7.0 mg/dL [facility] 6.0 - 20.0 7 blood glucose, random 203.0 mg/dL [facility] 74.0 - 99.0 High 7 reticulocyte count, absolute 0.098 10*6 CELLS/UL [facility] - 7 reticulocyte count, blood, uncorrected 1.88 % [facility] 0.50 - 2.00 7 iron binding capacity, unsaturated 280.0 ??G/DL [facility] 112.0 - 347.0 7 ferritin, serum 73.7 ng/mL [facility] 30.0 - 400.0 7 iron binding capacity, total 330.0 (?) [facility] - 7 iron, serum 50.0 ug/dL [facility] 31.0 - 144.0 9 red blood cell distribution width, size density 44.6 fL [facility] - 9 immature granulocytes, percentage of total cells, blood 0.3 % [facility] - 9 nucleated red blood cells as percent of blood leukocytes 0.0 % [facility] - 9 red blood cell (erythrocyte) count, per high power field 0.0 10*3/UL [facility] - 9 eosinophils as percent of blood leukocytes 4.2 % [facility] - 9 neutrophils as percent of blood leukocytes 59.9 % [facility] - 9 Absolute Neutrophils 6.4 CELLS/UL [facility] 1.5 - 7.8 9 basophils as percent of blood leukocytes 0.8 % [facility] - 9 Absolute Basophils 0.1 CELLS/UL [facility] 0.0 - 0.2 9 monocytes as percent of blood leukocytes 6.3 % [facility] - 9 Absolute Monocytes 0.7 CELLS/UL [facility] 0.2 - 1.0 9 lymphocytes as percent of blood leukocytes 28.5 % [facility] - 9 Absolute Lymphocytes 3.0 CELLS/UL [facility] 0.9 - 3.9 9 mean platelet volume 10.1 (?) [facility] - 9 platelet count 307.0 THOUSAND/ UL [facility] 100.0 - 400.0 9 mean corpuscular hemoglobin concentration, RBC 27.8 G/DL [facility] 31.0 - 38.0 Low 9 mean corpuscular hemoglobin, RBC 21.3 pg [facility] 25.0 - 35.0 Low 9 mean corpuscular volume, RBC 76.7 fL [facility] 75.0 - 100.0 9 hematocrit, blood 38.9 % [facility] 35.0 - 55.0 9 hemoglobin, blood 10.8 g/dL [facility] 11.5 - 16.5 Low 9 erythrocyte count, whole blood 5.1 MILLION/U L [facility] 3.5 - 5.5 9 C-reactive protein, serum 1.4 mg/dL [facility] 0.0 - 0.5 High 9 iron binding capacity, unsaturated 388.0 ??G/DL [facility] 112.0 - 347.0 High 9 iron binding capacity, total 416.0 (?) [facility] - 9 iron, serum 28.0 ug/dL [facility] 31.0 - 144.0 Low 9 vitamin b12, serum 615.2 pg/mL [facility] 211.0 - 946.0 9 ferritin, serum 11.7 ng/mL [facility] 30.0 - 400.0 Low HISTORY OF MEDICATION USE Medication Status Instructions Dates Provider Indications Com ments CITRACAL +D3 TABLET CHEWABLE active take one pill a day Kat Mann NORVASC 10 MG ORAL TABLET active take one pill a day Kat Mann SINGULAIR 10 MG ORAL TABLET active take one pill a day Kat Mann COZAAR 50 MG ORAL TABLET completed ONE TAB. DAILY - Kat Mann DICYCLOMINE HCL 10 MG ORAL CAPSULE active take one tablet by mouth once daily Kay Gaston FLOMAX 0.4 MG ORAL CAPSULE active take one tablet by mouth once daily Kay Gaston JANUVIA 100 MG ORAL TABLET active take one pill a day Kat Mann METFORMIN HCL 500 MG ORAL TABLET completed once daily - Kat Mann FUROSEMIDE 40 MG ORAL TABLET active take 1 pill once a day by mouth Argelia Low RN METHOTREXATE TABS 50MG (METHOTREXATE SODIUM TABS) completed TAKE DIRECTED - Kat Mann FERROUS SULFATE 325 (65 Fe) MG ORAL TABLET completed ONE PER DAY for 1 week then increase to twice daily thereafter - Ceferino Guo MD VITAMIN D (ERGOCALCIFEROL) 20801 UNIT ORAL CAPSULE active once a week Kay Gaston RECLAST SOLUTION active once annually Manju Shanks PLAQUENIL 200 MG ORAL TABLET completed twice daily - Niranjan Swanson MULTIVITAMINS ORAL CAPSULE active ONE TAB. DAILY Helder Shanks ZANAFLEX TABLET active 4 mg three times a day Kat Mann XANAX 1 MG ORAL TABLET active twice daily Mynor Webb MD METHADONE HCL TABLET active 15mg take one pill three times a day Kat Mann COUMADIN 5 MG ORAL TABLET active take one pill a day Kat Mann LOMOTIL 2.5-0.025 MG ORAL TABLET active 3 pills three times a day Kat Mann CYMBALTA 60 MG ORAL CAPSULE DELAYED RELEASE PARTICLES active once daily Mynor Webb MD HYDROMORPHONE HCL 4 MG ORAL TABLET active 3 times daily Kat Mann LYRICA 200 MG ORAL CAPSULE active take one pill a day Kat Mann ACIPHEX 20 MG ORAL TABLET DELAYED RELEASE completed twice daily - Kat Mann AMLODIPINE BESYLATE 10 MG ORAL TABLET completed ONE TAB. DAILY - Mynor Webb MD SOCIAL HISTORY Date Observation Value Provider social history reviewed E&M revi ewed - no changes required Mynor Webb MD Number of years usin g oral tobacco 30 Kat Mann chewing tobacco use Current Kat hussein smoking status Never smoker Kat segura social history reviewed E&M revi ewed - no changes required Mynor Webb MD number of grandchildren Mynor Rojas jorge Marilin smoking status Never smoker Kay Marilin Number of years usin g oral tobacco 30 Kay Bejaranoby chewing tobacco use Current Kay Herman dulce social history reviewed E&M revi ewed - no changes required Mynor Webb MD Number of years usin g oral tobacco 30 Helder Reidenson chewing tobacco use Current Latha Reidenson smoking status Never smoker Helder Franco Number of years usin g oral tobacco 30 Ceferino Guo MD chewing tobacco use Current Ceferino gonzalez MD smoking status Never smoker Ceferino Guo MD social history reviewed E&M revi ewed - no changes required Ceferino Guo MD social history reviewed E&M revi ewed - no changes required Ceferino Guo MD chewing tobacco use Current Latha pillai Dimitris smoking status Never smoker Helder Rg deweybebe social history reviewed E&M revi ewed - no changes required Ceferino Guo MD social history E&M Chew tobacco for 29 years. N o alcohol use N o drug usage. P atient has never smoked. Smoking History: P atient has never smoked. Ceferino Guo MD chewing tobacco use Current Latha Shanks smoking status Never smoker Ceferino Guo MD FAMILY HISTORY Family Member Condition Father Family History of Hy pertension: Father Family History of Di abetes: INSURANCE PROVIDERS Payer name Policy type / Coverage type [employer] party ID [facility] [id number] ADVANCE DIRECTIVES Name Date LIVING WILL ON FILE TREATMENT PLAN Date Name Performer Cardiology Follow up :Significant venous insufficiency found in the GSV bilaterally. O rder compression stockings to wear throughout the daytime. Mynor Webb MD Cardiology Follow up :Elevated today. Most likely due to fluid retention developed over the past several months. W ill check echo to rule out cardiomyopathy as reason for peripheral edema. BP today: 150/87 P rior BP: 128/80 (01/14/2016) Labs Reviewed: C reat: 0.8 (05/05/2016) Mynor Webb MD Cardiology Follow up Mynor luz MD Cardiology Follow up :Swelling with blisters has worsened over past few months. W ill order arterial sensilase test as patient is diabetic. Mynor Webb MD Cardiology:Will check home sleep study Mynor Webb MD Cardiology:Will chec k standing venous doppler and increase lasix. Will also switch amlodipine to cozaar 50mg to try and reduce swelling. Lyrica also leads to alot of swelling but he says it helps his pain. Mynor Webb MD Cardiology Mynor Webb MD Cardiology:110/60 Mynor Banerjee Cardiology:Probably neuropathy b ut will check CELINE. Mynor Webb MD Hem/Onc:Recent scope was negative per patient report. I have requested records to be sent. Ceferino Guo MD Hem/Onc:Mr. Kvng herman lood counts and iron stores have remained stable since his last IV iron infusion. His chronic fatigue is likely secondary to his underlying rheumatoid arthritis. I will continue monitoring his CBC and iron stores every three months. Orders: S NOMED-CT: [id number] Current Medications Documented ([id number]) C BC (INCLUDES DIFF/PLT) (6399) I ANAHI AND TOTAL IRON BINDING CAPACITY (7573) F ERRITIN (457) R ETICULOCYTE COUNT, MANUAL (6085) Ceferino Guo MD Hem/Onc:The patient recently has begun to experience hoarseness in his voice. He has a signifcant history (30 years) of chewing tobacco. I strongly encourage evaluation by ENT. He will contact Dr. Johnson for referral to ENT. O rders: 9 9214 MOD Complex ([id number]) Ceferino Guo MD Hem/Onc:Mr. Jesus gannon continues to have significant fatigue. I believe that this is likely related his underlying rheumatoid arthritis and borderline WILLIAM. I will repeat his CBC/iron stores and check TSH. He will return in three months for follow up. Orders: S NOMED-CT: [id number] Current Medications Documented ([id number]) C BC (INCLUDES DIFF/PLT) (6399) F ERRITIN (457) I ANAHI AND TOTAL IRON BINDING CAPACITY (7573) R ETICULOCYTE COUNT, MANUAL (8699) S OLUBLE TRANSFERRIN RECEPTOR (131376) C OMPREHENSIVE METABOLIC PANEL W/EGFR (38983) T SH (578108) 9 6114 MOD Complex ([id number]) Ceferino Gou MD Hem/Onc:The patient has iron deficiency as evidenced by low serum ferritin (11.7) and elevated soluble transferrin recpetor. He is intolerant of oral iron. He will receive IV iron today and in 1 week. Side effects including but not limited to analyphylaxsis, respiratory failure, nausea, upset stomach and were discussed with the patient. He was agreeable to proceed. I will repeat iron stores in three months. Ceferino Guo MD Anemia Evaluation:Juan J lacy is currently on methotrexate which can cause an anemia. However, this typically causes a macrocytic anemia. Ceferino Guo MD Anemia Evaluation:Mr Spring Phillip has many factors which may be contributing to his anemia. I will repeat his CBC along with a reticulocyte count to assess appropriate bone marrow response, iron and vit B12 stores. Given his rheumatoid arthritis, he may have a component of anemia of chronic inflamation. ESR and CRP will be checked. To rule out concominant iron deficiency, I will also check a soluble transferrin receptor. I will call the patient with test results. In the interim, I will obtain endoscopy reports from [facility]. Orders: F ERRITIN (457) I ANAHI AND TOTAL IRON BINDING CAPACITY (7573) E LECTROPHORESIS AND IMMUNOFIXATION, SERUM WITH TRACING (18425) F olic acid; RBC (69858) V ITAMIN B12 (927) S ED RATE BY MODIFIED WESTERGREN (809) C -REACTIVE PROTEIN (CRP), HIGHLY SENSITIVE, CSF (78947) C BC (INCLUDES DIFF/PLT) (6399) R ETICULOCYTE COUNT, MANUAL (8699) S oluble Transferrin Receptor (206865) Ceferino Guo MD Date Name Arterial - SENSILASE Complete Echo BASIC METABOLIC PANE L W/EGFR Venous Doppler Bilat eral LE - Standing BASIC METABOLIC PANE L W/EGFR Sleep Study Home Arterial Duplex Bi-L ower EX RETICULOCYTE COUNT, MANUAL IRON AND TOTAL IRON BINDING CAPACITY FERRITIN CBC (INCLUDES DIFF/P LT) TSH COMPREHENSIVE METABO LIC PANEL W/EGFR SOLUBLE TRANSFERRIN RECEPTOR RETICULOCYTE COUNT, MANUAL IRON AND TOTAL IRON BINDING CAPACITY FERRITIN CBC (INCLUDES DIFF/P LT) Soluble Transferrin Receptor RETICULOCYTE COUNT, MANUAL CBC (INCLUDES DIFF/P LT) C-REACTIVE PROTEIN ( CRP), HIGHLY SENSITIVE, CSF SED RATE BY MODIFIED WESTKELSIEREN VITAMIN B12 Folic acid; RBC ELECTROPHORESIS AND IMMUNOFIXATION, SERUM WITH TRACING IRON AND TOTAL IRON BINDING CAPACITY FERRITIN HISTORY OF PROCEDURES Procedure Date Procedure Name Provider Procedure Notes S tatus SNOMED-CT: 23533294 Physical Exam, Performed: Pulse Exam of Foot Mynor Webb MD completed EKG Mynor Webb MD completed SNOMED-CT: 491019663 291102 Current Medications Documented Mynor Webb MD completed SNOMED-CT: 11036240 Physical Exam, Performed: Pulse Exam of Foot Mynor Webb MD completed SNOMED-CT: [id number] 462493 Current Medications Documented Mynor Webb MD completed SNOMED-CT: [id number] Physical Exam, Performed: Pulse Exam of Foot Mynor Webb MD completed SNOMED-CT: 787011237 361008 Current Medications Documented Mynor Webb MD completed SNOMED-CT: 745344596 566609 Current Medications Documented Ceferino Guo MD completed SNOMED-CT: 232428835 351702 Current Medications Documented Ceferino Guo MD completed SNOMED-CT: 510714640 662977 Current Medications Documented Ceferino Guo MD completed
--- OUTSIDE RECORDS SUMMARY | 2024-06-15 00:45 | XMS_ITS | Clinical Summary ---
Author Organization [facility] Address [address] [place] [address] Care Team Providers Care Gunner'S Mate G Name Role Phone Boris Laws MD Primary Care Provider [phone] Allergies Active Allergy Reactions Criticality Noted Date Comments Adhesive Tape-Silicones Rash Medium 12/22/2018 Azathioprine Unknown Low 01/05/2021 Cefixime Nausea and Vomiting Low 03/04/2003 Meperidine Unknown 01/20/2021 Does not work Metformin Unknown Low 01/05/2021 Midazolam Unknown 01/20/2021 Does not work for patient no adverse reaction Nickel Rash Medium 01/15/2013 Prednisone Unknown 11/09/2010 Sulfasalazine Nausea and Vomiting Low 03/04/2003 Vancomycin Renal Dysfunctions High 05/12/2017 Kidney failure Kidney failure Kidney failure Zolmitriptan Unknown Low 12/09/2015 Looses use of legs Medications tiZANidine (ZANAFLEX) 4 mg Capsule Take 8 mg by mouth daily at bedtime. Active pregabalin (LYRICA) 200 mg Capsule Take 200 mg by mouth every 8 hours. Active RABEprazole (ACIPHEX) 20 mg Tablet, Delayed Release (E.C.) Take 20 mg by mouth 2 times daily. Active methadone (DOLOPHINE) 5 mg Tablet Take 15 mg by mouth 3 times daily. Active montelukast (SINGULAIR) 10 mg tablet Take 10 mg by mouth daily at bedtime. Active diphenoxylate-a tropine 2.5-0.025 mg tablet Take 1 Tablet by mouth 3 times daily. Active ERGOCALCIFEROL, VITAMIN D2, (VITAMIN D ORAL) Take 1.25 mg by mouth daily. Active ALPRAZolam (XANAX) 1 mg tablet Take 1 mg by mouth 3 times daily as needed for Anxiety. Active cholecalciferol 50,000 unit Capsule Take 50,000 Units by mouth twice weekly. Active calcium citrate-vitamin D3 (CITRACAL WITH VIT D) 200 mg calcium -250 unit Tablet Take 1 Tablet by mouth daily. Active multivitamin (DAILY-TOREY) tablet Take 1 Tablet by mouth daily. Active oxyCODONE (ROXICODONE) 15 mg tablet 8 Active spironolactone (ALDACTONE) 25 mg tablet 8 Active methadone (DOLOPHINE) 10 mg Tablet 1 Active olopatadine (PATANOL) 0.1 % solution 1 Drop by Ophthalmic route. 0 Active lancets 30 gauge Test 1-2 daily 0 Active ipratropium-alb uteroL (COMBIVENT RESPIMAT) 20-100 mcg/actuation Mist Take 1 Puff by inhalation. 8 Active Eliquis 5 mg tablet TAKE ONE TABLET BY MOUTH TWICE A DAY 180 Tablet 3 1 Active naloxone (Narcan) 4 mg/spray [place], Non-Aerosol daily as needed 1 Active Vitamin D2 1,250 mcg (50,000 unit) capsule 2 Active blood sugar diagnostic (OneTouch Verio test strips) Strip Test 3 times daily. ICD 10 Code: E11.49 E11.40 1 Active acetaminophen (TYLENOL) 500 mg tablet Take 500 mg by mouth. Active amLODIPine (NORVASC) 5 mg tablet 3 Active DULoxetine (CYMBALTA) 30 mg Capsule, Delayed Release(E.C.) Take 30 mg by mouth daily. Active Trulicity 0.75 mg/0.5 mL injection ADMINISTER 0.75 MG UNDER THE SKIN EVERY 7 DAYS 3 Active ferrous gluconate 324 mg (37.5 mg iron) TabletIndicatio ns:Chronic anemia take 1 tablet by mouth daily 90 Tablet 3 4 Active Active Problems Problem Noted Date Diagnosed Date Chronic anemia 09/19/2017 Morbid obesity with body mass index of 40.0-49.9 05/12/2017 Tobacco use 05/12/2017 Secondary hypercoagulable state 05/12/2017 Encounters Date Type Department Care Team Description 06/12/2024 Orders Only [facility] [place] [address] [place] [address] Michel Atkins MD Chronic anemia (Primary Dx) 06/11/2024 Abstract [facility] [place] [address] [place] [address] Michel Atkins MD 06/06/2024 Telephone [facility] [place] [address] [place] [address] Michel Atkins MD Sugical Clearance Questions 06/05/2024 External Device Data STL ABSTRACTION Provider, Abstract 06/05/2024 External Device Data STL ABSTRACTION Provider, Abstract 05/08/2024 External Device Data STL ABSTRACTION Provider, Abstract 04/03/2024 External Device Data STL ABSTRACTION Provider, Abstract from Last 3 Months Family History Medical History Relation Name Comments Diabetes Father Heart Disease Father Other Mother Other Sister Relation Name Status Comments Father Alive Mother Alive Sister Alive Social History Tobacco Use Types Packs/Day Years Used Date Smoking Tobacco: Former Cigarettes Smokeless Tobacco: Current Chew Tobacco Cessation:Ready to Q uit: Not Asked; Counseling Given: Not Answered Comments:social smoker x 10 yrs Alcohol Use Standard Drinks/Week Comments Yes 0 (1 standard drink = 0.6 oz pur e alcohol) occasional Sex and Gender Information Value Date Recorded Sex Assigned at Not on file Legal Sex Male 2:10 PM DISINTEGRATOR Gender Identity Not on file Sexual Orientation Not on file Last Filed Vital Signs Vital Sign Reading Time Taken Comments Blood Pressure 133/82 06/21/2023 1:09 PM CDT Pulse 85 06/21/2023 1:09 PM CDT Temperature 36.1 C (97 F) 06/21/2023 1:09 PM CDT Respiratory Rate 14 06/21/2023 1:09 PM CDT Oxygen Saturation 97% 06/21/2023 1:09 PM CDT Inhaled Oxygen Concentration - - Weight 113.4 kg (250 lb) 06/21/2023 1:09 PM CDT Height 182.9 cm (6') 06/01/2021 11:19 AM DISINTEGRATOR Body Mass Index 33.91 06/01/2021 11:19 AM DISINTEGRATOR Plan of Treatment Upcoming Encounters Date Type Department Care Team (Late st Contact Info) Description 06/19/2024 1:00 PM CDT Office Visit [facility] [place] [address] [place] [address] Michel Atkins MD [address] [facility] [address] [place] [address] Health Maintenance Due Date Last Done Comments DIABETES ANNUAL FOOT EXAM 1987 DIABETES MICROALBUMIN ANNUAL SCREEN 1987 LDL CHOLESTEROL ANNUAL 1987 DTAP/TDAP/TD VACCINES (1 - Tdap) 01/12/1988 HEPATITIS B VACCINES (1 of 3 - 19+ 3-dose series) 01/12/1988 FIT-DNA Q 3 years 2014 FIT/FOBT Q 1 year 2014 Flex Sig/CT Colonography Q 5 years 2014 COLORECTAL SCREENING 03/27/2018 03/27/2008 Colorectal Cancer Screening 03/27/2018 DIABETES ANNUAL RETINAL EXAM 12/29/2018 12/29/2017 ZOSTER VACCINE (1 of 2) 2019 INFLUENZA VACCINE (#1) 2023 2, 01/07/2021, 03/24/2019, Additional history exists COVID-19 Vaccine (3 2023-2 5 season) 2023 11/20/2020, 10/23/2020 DIABETES HBA1C Q 6 MONTHS 05/10/20242023, 06/09/2023, 05/12/2022, Additional history exists Procedures Procedure Name Priority Date/Time Associated Diagnosis Comments VITAMIN B12 AND FOLATE Routine 9:22 AM CDT Chronic anemia FERRITIN Routine 06/13/2024 9:22 AM CDT Chronic anemia IRON, TIBC, AND PERCENT SATURATION Routine 06/13/2024 9:22 AM CDT Chronic anemia CBC WITH DIFFERENTIAL Routine 06/13/2024 9:22 AM CDT Chronic anemia COMPREHENSIVE METABOLIC PANEL Routine 06/13/2024 9:22 AM CDT Chronic anemia HEMOGLOBIN A1C Routine 08/01/2020 from Last 3 Months or Most Recently Relevant to Health Maintenance Results * VITAMIN B12 AND FOLATE (06/13/2024 9:22 AM CDT) Pathologist [facility] VITAMIN B12 289 200 - 1100 pg/mL [facility] Comment: Please Note: Although the reference range for vitamin B12 is 200-1100 pg/mL, it has been reported that between 5 and 10% of patients with values between 200 and 400 pg/mL may experience neuropsychiatric and hematologic abnormalities due to occult B12 deficiency; less than 1% of patients with values above 400 pg/mL will have symptoms. FOLATE, SERUM 16.3 ng/mL [facility] Comment: Reference Range Low: <3.4 Borderline: 3.4-5.4 Normal: >5.4 FASTING:YES FASTING: YES Test Performed at: [facility] [address] [place] [address] Romy Dias MD Blood 06/13/2024 9:22 AM CDT 06/13/2024 9:26 AM CDT Michel Atkins MD CHEMISTRY ORDERABLES Final Resu lt [facility] [phone] [facility] [address] [place] [address] * IRON, TIBC, AND PERCENT SATURATION (06/13/2024 9:22 AM CDT) Pathologist [facility] IRON 72 50 - 180 mcg/dL [facility] TIBC 289 250 - 425 mcg/dL (calc) [facility] IRON % SATURATION 25 20 - 48 % (calc) [facility] Comment: Test Performed at: [facility] [address] [address] Romy Dias MD Blood 06/13/2024 9:22 AM CDT 06/13/2024 9:26 AM CDT us Michel Atkins MD CHEMISTRY ORDERABLES Final Resu lt [facility] [phone] [facility] [address] [address] * CBC WITH DIFFERENTIAL (06/13/2024 9:22 AM CDT) WBC 6.7 3.8 - 10.8 Thousand/u L [facility] RBC 5.13 4.20 - 5.80 Million/uL [facility] HEMOGLOBIN 16.3 13.2 - 17.1 g/dL [facility] HEMATOCRIT 47.7 38.5 - 50.0 % [facility] MCV 93.0 80.0 - 100.0 fL [facility] MCH 31.8 27.0 - 33.0 pg [facility] MCHC 34.2 32.0 - 36.0 g/dL [facility] Comment: For adults, a slight decrease in the calculated MCHC value (in the range of 30 to 32 g/dL) is most likely not clinically significant; however, it should be interpreted with caution in correlation with other red cell parameters and the patient's clinical condition. RDW 13.1 11.0 - 15.0 % [facility] PLATELETS 195 140 - 400 Thousand/u L [facility] MPV 10.1 7.5 - 12.5 fL [facility] NEUTROPHIL ABSOLUTE 4,556 1,500 - 7,800 cells/uL [facility] LYMPHOCYTE ABSOLUTE 1,548 850 - 3,900 cells/uL [facility] MONOCYTE ABSOLUTE 422 200 - 950 cells/uL [facility] EOSINOPHIL ABSOLUTE 147 15 - 500 cells/uL [facility] BASOPHILS ABSOLUTE 27 0 - 200 cells/uL [facility] NEUTROPHIL 68 % [facility] LYMPHOCYTES 23.1 % [facility] MONOCYTE 6.3 % [facility] EOSINOPHILS 2.2 % [facility] BASOPHILS 0.4 % [facility] Comment: FASTING:YES FASTING: YES Test Performed at: [facility] [address] [place] [address] Romy Dias MD Blood 06/13/2024 9:22 AM CDT 06/13/2024 9:26 AM CDT Michel Atkins MD HEMATOLOGY ORDERABLES Final Res ult Performing Organization Address City/[facility] Co de Phone Number [facility] [phone] [facility] [address] [facility] [address] * FERRITIN (06/13/2024 9:22 AM CDT) Pathologist [facility] FERRITIN 91 38 - 380 ng/mL [facility] Comment: Test Performed at: [facility] [address] AbimbolaCaity Dias MD Blood 06/13/2024 9:22 AM CDT 06/13/2024 9:26 AM CDT us Michel Atkins MD CHEMISTRY ORDERABLES Final Resu lt Performing Organization Address City/[facility] Co de Phone Number [facility] [phone] [facility] [address] [facility] [address] [place] [phone] * (ABNORMAL) COMPREHENSIVE METABOLIC PANEL (06/13/2024 9:22 AM CDT) Pathologist [facility] GLUCOSE 95 65 - 99 mg/dL [facility] Comment: Fasting reference interval BUN 12 7 - 25 mg/dL [facility] CREATININE 0.77 0.70 - 1.30 mg/dL [facility] GFR 106 > OR = 60 mL/min/1. 73m2 [facility] BUN/CREAT RATIO SEE NOTE: 6 - 22 (calc) [facility] Comment: Not Reported: BUN and Creatinine are within reference range. SODIUM 140 135 - 146 mmol/L [facility] Comment: Verified by repeat analysis. POTASSIUM 4.5 3.5 - 5.3 mmol/L [facility] CHLORIDE 99 98 - 110 mmol/L [facility] Comment: Verified by repeat analysis. CO2 35(H) 20 - 32 mmol/L [facility] Comment: Verified by repeat analysis. CALCIUM 9.4 8.6 - 10.3 mg/dL [facility] TOTAL PROTEIN 6.6 6.1 - 8.1 g/dL [facility] ALBUMIN 4.5 3.6 - 5.1 g/dL [facility] GLOBULIN 2.1 1.9 - 3.7 g/dL (calc) [facility] ALBUMIN/GLOBULIN RATIO 2.1 1.0 - 2.5 (calc) [facility] BILIRUBIN TOTAL 1.0 0.2 - 1.2 mg/dL [facility] ALKALINE PHOSPHATASE 39 35 - 144 U/L [facility] AST 13 10 - 35 U/L [facility] ALT 10 9 - 46 U/L [facility] Comment: FASTING:YES FASTING: YES Test Performed at: [facility] [address] [place] [address] Romy Dias MD Blood 06/13/2024 9:22 AM CDT 06/13/2024 9:26 AM CDT Michel Atkins MD CHEMISTRY ORDERABLES Final Resu lt [facility] [phone] [facility] [address] [address] [place] [address] * HEMOGLOBIN A1C (08/01/2020) Blood us Abstract Provider CHEMISTRY ORDERABLES Final Res ult from Last 3 Months or Most Recently Relevant to Health Maintenance Insurance [place] [id number] Care Teams Gunner'S Mate G Relationship Specialty [place] [address] [place] [address] PCP - General Internal Medicine 05/12/17
--- OUTSIDE RECORDS SUMMARY | 2024-06-15 00:46 | XMS_ITS | Clinical Summary ---
Author Organization [facility] Address [address] [facility] [address] Care Team Providers Care Line Supply Name Role Phone LawsBoris gannon Primary Care Provider [phone] Source Comments [facility],non-owned Affiliates and Associated Physician Practices is amultiple site organization consisting of ambulatory clinics and hospital sitesin [place], [place], [place] and [place]. This disclosure is being madepursuant to the Care Everywhere program and may not contain all information available regarding this patient. Last updated 17.[facility] Allergies Active Allergy Reactions Criticality Noted Date Comments Adhesive Sensitivity Rash Medium 12/22/2018 Vancomycin Renal Injury High 05/12/2017 Kidney failure Medications * Be aware that medications may not be up to date on this document. Alwaysverify current medications with the patient. Medication Sig Dispensed Refills Start Date End Date Status ALPRAZolam (XANAX) 1 MG tablet 06/22/2017 Active ELIQUIS 5 MG tablet 2 times daily 06/21/2017 Ac tive calcium citrate (CITRACAL 950) 950 MG tablet Take 1 tablet by mouth Active vitamin D, ergocalciferol, (DRISDOL) 17755 UNITS capsule 06/21/2017 Active JANUVIA 100 MG tablet 06/21/2017 Act rimma LYRICA 200 MG capsule 3 times daily 05/24/2017 Active diphenoxylate-atropine (LOMOTIL) 2.5-0.025 MG tablet 08/15/2017 Active DULoxetine (CYMBALTA) 60 MG capsule 08/02/2017 Active furosemide (LASIX) 40 MG tablet 07/20/2017 Active methadone (DOLOPHINE) 10 MG tablet 15 mg 3 times daily 07/25/2017 Active methotrexate 50 MG/2ML injection 25 mg every 7 days 07/20/2017 Active montelukast (SINGULAIR) 10 MG tablet 08/19/2017 Active olopatadine (PATANOL) 0.1 % ophthalmic solution 07/29/2017 Active tamsulosin (FLOMAX) 0.4 MG capsule 08/02/2017 Active tiZANidine (ZANAFLEX) 4 MG tablet Take by mouth 4 times daily 08/02/2017 Active PROAIR HFA 108 (90 Base) MCG/ACT inhaler 06/09/2018 Act rimma oxyCODONE, immediate release, (OXY-IR) 15 MG tablet Take 15 mg by mouth 3 times daily 08/26/2018 Active spironolactone (ALDACTONE) 25 MG tablet TAKE 1 TABLET DAILY 09/18/2018 Active dicyclomine (BENTYL) 10 MG capsule TAKE 1 CAPSULE ONCE DAILY Active Testosterone Cypionate 200 MG/ML Inject 200 mg into muscle every 7 days Active losartan (COZAAR) 50 MG tablet Take 50 mg by mouth once daily Active RABEprazole EC (ACIPHEX) 20 MG tablet Take 20 mg by mouth 2 times daily Active Cholecalciferol (VITAMIN D3 PO) Take 50,000 Units by mouth every Tuesday & Tuesday Active Active Problems Problem Noted Date Diagnosed Date Thoracic spondylosis with myelopathy 01/31/2019 Morbid obesity with body mass index of 40.0-49.9 05/12/2017 Secondary hypercoagulable state 05/12/2017 Tobacco use 05/12/2017 Social History Tobacco Use Types Packs/Day Years Used Date Smoking Tobacco: Never Smokeless Tobacco: Current Chew Tobacco Cessation:Ready to Q uit: No; Counseling Given: No Alcohol Use Standard Drinks/Week Comments No 0 (1 standard drink = 0.6 oz pur e alcohol) Sex and Gender Information Value Date Recorded Sex Assigned at Not on file Gender Identity Not on file Sexual Orientation Not on file Last Filed Vital Signs Vital Sign Reading Time Taken Comments Blood Pressure 146/117 01/23/2019 2:33 PM CDT Pulse 104 01/23/2019 2:33 PM CDT Temperature 36.8 C (98.2 F) 01/23/2019 2:33 PM CDT Respiratory Rate 18 01/23/2019 2:33 PM CDT Oxygen Saturation 100% 01/23/2019 2:33 PM CDT Inhaled Oxygen Concentration - - Weight 154.2 kg (340 lb) 01/23/2019 2:33 PM CDT Height 182.9 cm (6') 01/23/2019 2:33 PM CDT Body Mass Index 46.11 01/23/2019 2:33 PM CDT Plan of Treatment Health Maintenance Due Date Last Done Comments COLOGUARD (AGES 45-75) - COLON CA SCREENING 1969 COLON MONITORING 1969 COLONOSCOPY - COLON CA SCREENING 1969 CT COLONOGRAPHY - COLON CA SCREENING 1969 Colorectal Cancer Screening 1969 FIT - COLON CA SCREENING 1969 FLEX SIG - COLON CA SCREENING 1969 LIPID TESTING 1969 HIV SCREENING 01/12/1984 HEPATITIS C SCREENING 01/07/1987 DTAP/TDAP/TD VACCINES (1 - Tdap) 01/12/1988 HEPATITIS B VACCINE (1 of 3 - 19+ 3-dose series) 01/12/1988 PNEUMOCOCCAL VACCINE 50+ (1 of 1 - PCV) 2019 ZOSTER VACCINE (1 of 2) 2019 SCREENING FOR DIABETES 01/19/2022 9, 11/17/2018, 08/01/2017 COVID-19 VACCINE ( - 2023- season) 2023 INFLUENZA VACCINE (#1) 2023 2, 01/07/2021, 01/25/2020, Additional history exists DEPRESSION SCREENING 03/28/2024 HIB VACCINE Aged Out No longer eligi ble based on patient's age to complete this topic HPV VACCINE Aged Out No longer eligi ble based on patient's age to complete this topic MENINGOCOCCAL (Group B) VACCINE SHARED DECISION-MAKING Aged Out No longer eligible based on patient's age to complete this topic MENINGOCOCCAL GROUPS A/C/Y/W VACCINE Aged Out No longer eligible based on patient's age to complete this topic Goals Goal Patient Goal Type Associated Problems Recent Progress Patient-Stated? Author Mobility General No Fabiola Sanchez, RN Note: Expected end date: 03/25/2019 The goal is to maintain or improve your mobility at the optimum level for you. Interventions: Procedures Procedure Name Priority Date/Time Associated Diagnosis Comments GLUCOSE - POINT OF CARE Routine 01/19/2019 12:29 PM CDT from Last 3 Months or Most Recently Relevant to Health Maintenance Results * (ABNORMAL) GLUCOSE - POINT OF CARE (01/19/2019 12:29 PM CDT) Glucose WB/POC 132(H) 70 - 115 mg/dL 01/19/2019 12:33 PM CDT [facility] Specimen Type Arterial/C apillary 01/19/2019 12:33 PM CDT [facility] Comment:ENAMEL FINISHER: JORGE HILL Blood BLOOD SPECIMEN / Unknown 01/19/2019 12:29 PM CDT 01/19/2019 12:33 PM CDT Anjelica Ortiz PA-C LAB - POINT OF CARE ORDERABLES [facility] [address] [phone] from Last 3 Months or Most Recently Relevant to Health Maintenance Care Teams Line Supply Relationship Specialty Start Date End Date Boris Laws DO [address] [place] [address] PCP - General 08/02/17
[2024-06-15 06:34] VITALS: BP 154/79; PULSE 104; RESP 18; TEMP 36.6; O2SAT 98; BMI 26.1
[2024-06-15] MEDS: LACTATED RINGERS 1,000 ML 150 ML IV CONT (06:42)
--- NOTE | 2024-06-15 06:44 | P.PNAN_ITS ---
Anes - Initial Pre Proc Eval Procedure: Operation Date: 06/15/24 07:30 Proposed Procedures p Esophagogastroduodenoscopy & Colonoscopy - Victor Manuel Bernal MD Date/Time: 06/15/24 06:44 Surgeon: Victor Manuel Bernal MD Pre Op Diagnosis: abn weight loss, change in bowel habit, GERD Patient Data Age: 54 Gender: M Height: 1.83 m Weight: 87.4 kg Last Vital Signs Temp 36.6 C 06/15/24 06:34 Pulse 104 H 06/15/24 06:34 Resp 18 06/15/24 06:34 BP 154/79 H 06/15/24 06:34 Pulse Ox 98 06/15/24 06:34 O2 Del Method Room Air 06/15/24 06:34 Allergies Allergy/AdvReac Type Severity Reaction Status Date / Time vancomycin Allergy Unknown COMPLETE Verified 06/15/24 06:31 RENAL FAILURE adhesive tape AdvReac Unknown Blister Verified 06/15/24 06:31 Home Medications ?Medication ?Instructions ?Recorded ?Confirmed ?Type ergocalciferol (vitamin D2) 1,250 50,000 unit PO WEEKLY 03/09/19 06/15/24 History mcg (50,000 unit) capsule (Vitamin D2) spironolactone 25 mg tablet 25 mg PO DAILY 03/09/19 06/15/24 History apixaban 5 mg tablet (Eliquis) 5 mg PO BID 12/25/20 06/15/24 History amlodipine 5 mg tablet 5 mg PO DAILY 06/11/22 06/15/24 History testosterone cypionate 200 mg/mL 100 mg IM WEEKLY 11/17/22 06/05/24 History intramuscular oil ferrous sulfate 134 mg (27 mg 134 mg PO DAILY 06/10/23 06/15/24 History iron) tablet spironolactone 25 mg tablet 25 mg PO DAILY 03/07/24 06/15/24 History methadone 10 mg tablet 10 mg PO BID 03/08/24 06/15/24 History allopurinol 300 mg tablet 300 mg PO DAILY 06/05/24 06/15/24 History alpha lipoic acid 600 mg capsule 600 mg PO DAILY 06/05/24 06/15/24 History hydrochlorothiazide 12.5 mg tablet 15 mg PO DAILY 06/05/24 06/15/24 History lecithin 1,200 mg capsule 1,200 mg PO DAILY 06/05/24 06/15/24 History metamucil BYMOUTH 06/05/24 History pregabalin 100 mg capsule 100 mg PO TID #240 caps 06/05/24 06/15/24 Rx tirzepatide 5 mg/0.5 mL 5 mg subcut WEEKLY 06/05/24 06/15/24 History subcutaneous pen injector (Mounjaro) turmeric 400 mg capsule 1,500 mg PO DAILY 06/05/24 06/15/24 History Patient hx anesthesia problems: none Family hx anesthesia problems: none Results Review: All pre-operative results and documents have been reviewed as part of the pre- operative evaluation. [facility] Past Medical History Medical History Constipation Weight loss Dysphagia Abdominal pain Change in bowel habits Diarrhea Obese Gas bloat syndrome Anxiety Diabetes GERD (gastroesophageal reflux disease) WILLIAM (obstructive sleep apnea) Hypertension Hyperlipidemia Surgical History Surgical History History of biliary duct stent placement History of orthopedic surgery Family History Family History Other Diabetes mellitus Family history of mental disorder Hypertension Social History Social History Smoking status: Former smoker Smokeless tobacco user: chewing tobacco Additional smoking assessment comments: CURRENTLY CHEWS TOBACCO X 36 YEARS Alcohol intake: never Substance use: never Substance use type: does not use Do You Feel Safe in your Home?: Yes Lack of Transportation: No Lack of Food: Never True Current Housing: I Have Housing Concerned About Future Housing: No Difficulty Paying Gas/Electric Bills: No Difficulty Paying for Meds: No Currently Unemployed: No Education: Associate Degree Difficulty w/ Childcare or Family Care: No Living arrangements: with family Spiritual care concerns: No Anes - Eval Final PreProcedure Day of Procedure 06/15/24 06:44 Patient weight: overweight Heart: regular rate and rhythm Lungs: clear to auscultation Airway: Mallampati scale class II Neurological: alert and oriented Last oral intake: >/= 8 hours ASA classification: III Emergent: no Anesthetic plan: proceed Anesthesia type and monitoring: general GIVS and standard monitoring Results Review: All pre-operative results and documents have been reviewed as part of the pre- operative evaluation. Informed Consent: The patient's anesthetic plan and its attendant risks and benefits were discussed with the patient/family/POA. Questions were solicited and answers provided to the satisfaction of the patient/family/POA.
[2024-06-15 06:48] LABS: Glucose Point of Care 88 mg/dl (65-105)
--- NOTE | 2024-06-15 07:33 | PM.HPGS ---
History of Present Illness History of Present Illness Consent: Risks, benefits, and alternatives have been discussed and questions answered. Patient agrees to proceed with procedure. Chief complaint: abn weight loss, change in bowel habit, GERD Narrative: Jesus Laws is a 54 year old male here for colonoscopy (last one 2018 with polyp) and egd, h/o dysphagia to both solids and liquids. He describes a sensation of tightness in his throat. Review of Systems Review of Systems: All systems reviewed & are unremarkable except as noted in HPI and below PMFSH Past Medical History Medical History (Updated 06/15/24 @ 07:34 by Victor Manuel Bernal MD) Polyp, colonic Constipation Weight loss Dysphagia Abdominal pain Change in bowel habits Diarrhea Obese Gas bloat syndrome Anxiety Diabetes GERD (gastroesophageal reflux disease) WILLIAM (obstructive sleep apnea) Hypertension Hyperlipidemia Surgical History Surgical History History of biliary duct stent placement History of orthopedic surgery Family History Family History Other Diabetes mellitus Family history of mental disorder Hypertension Social History Social History Smoking status: Former smoker Smokeless tobacco user: chewing tobacco Additional smoking assessment comments: CURRENTLY CHEWS TOBACCO X 36 YEARS Alcohol intake: never Substance use: never Substance use type: does not use Do You Feel Safe in your Home?: Yes Lack of Transportation: No Lack of Food: Never True Current Housing: I Have Housing Concerned About Future Housing: No Difficulty Paying Gas/Electric Bills: No Difficulty Paying for Meds: No Currently Unemployed: No Education: Associate Degree Difficulty w/ Childcare or Family Care: No Living arrangements: with family Spiritual care concerns: No Meds Home Medications and Allergies Home Medications ?Medication ?Instructions ?Recorded ?Confirmed ?Type ergocalciferol (vitamin D2) 1,250 50,000 unit PO WEEKLY 03/09/19 06/15/24 History mcg (50,000 unit) capsule (Vitamin D2) spironolactone 25 mg tablet 25 mg PO DAILY 03/09/19 06/15/24 History apixaban 5 mg tablet (Eliquis) 5 mg PO BID 12/25/20 06/15/24 History amlodipine 5 mg tablet 5 mg PO DAILY 06/11/22 06/15/24 History testosterone cypionate 200 mg/mL 100 mg IM WEEKLY 11/17/22 06/05/24 History intramuscular oil ferrous sulfate 134 mg (27 mg 134 mg PO DAILY 06/10/23 06/15/24 History iron) tablet spironolactone 25 mg tablet 25 mg PO DAILY 03/07/24 06/15/24 History methadone 10 mg tablet 10 mg PO BID 03/08/24 06/15/24 History allopurinol 300 mg tablet 300 mg PO DAILY 06/05/24 06/15/24 History alpha lipoic acid 600 mg capsule 600 mg PO DAILY 06/05/24 06/15/24 History hydrochlorothiazide 12.5 mg tablet 15 mg PO DAILY 06/05/24 06/15/24 History lecithin 1,200 mg capsule 1,200 mg PO DAILY 06/05/24 06/15/24 History metamucil BYMOUTH 06/05/24 History pregabalin 100 mg capsule 100 mg PO TID #240 caps 06/05/24 06/15/24 Rx tirzepatide 5 mg/0.5 mL 5 mg subcut WEEKLY 06/05/24 06/15/24 History subcutaneous pen injector (Mounjaro) turmeric 400 mg capsule 1,500 mg PO DAILY 06/05/24 06/15/24 History Allergies Allergy/AdvReac Type Severity Reaction Status Date / Time vancomycin Allergy Unknown COMPLETE Verified 06/15/24 06:31 RENAL FAILURE adhesive tape AdvReac Unknown Blister Verified 06/15/24 06:31 Vital Signs Vital Signs - 24 hr 06/15/24 06:34 Temperature 97.8 F Pulse Rate 104 H Respiratory Rate 18 Blood Pressure 154/79 H Pulse Oximetry 98 Oxygen Delivery Room Air Exam Const: General: comfortable and no acute distress HENMT: Face/Nose/Sinus: Normal nares present Eyes: General: appearance normal, both eyes and all related structures Neck: Neck: no JVD Resp: Auscultation: clear to auscultation bilaterally Cardio: Rate: regular rate Rhythm: regular rhythm GI: Inspection: non-distended GI Palp: Yes Soft to palpation Skin: General skin exam: normal color Neuro: Speech: normal speech Extrem: General: normal to inspection Psych: Mental Status: mental status grossly normal Assessment and Plan Assessment and plan (1) Dysphagia: Code(s): R13.10 - Dysphagia, unspecified Status: Acute Assessment and Plan: egd (2) Constipation: Code(s): K59.00 - Constipation, unspecified Status: Acute Assessment and Plan: colonoscopy (3) Polyp, colonic: Code(s): K63.5 - Polyp of colon Status: Acute
--- NOTE | 2024-06-15 07:44 | SUR.OPER ---
EGD: end 739, COLON: start 743
[2024-06-15 07:57] VITALS: BP 112/60; PULSE 76; RESP 14; O2SAT 98
[2024-06-15 08:07] VITALS: BP 105/79; PULSE 78; RESP 13; O2SAT 97
[2024-06-15 08:17] VITALS: BP 126/69; PULSE 78; RESP 18; O2SAT 100
== END 2024-06-15 08:32 | disposition home or self-care (01) ==
PROVIDERS: PCP Internal Medicine; Referring Provider Nurse Practitioner Family; Visit Provider Internal Medicine Gastroenterology
PROC: 0DJ08ZZ Inspection of Upper Intestinal Tract, Via Natural or Artificial Opening Endoscopic (ICD-10-PCS; CPT 45378; principal; 2024-06-15 07:30)
DX: K59.00 Constipation, unspecified (principal); D12.3 Benign neoplasm of transverse colon; K64.8 Other hemorrhoids; K64.4 Residual hemorrhoidal skin tags; K21.00 Gastro-esophageal reflux disease with esophagitis, without bleeding; R13.12 Dysphagia, oropharyngeal phase; E11.9 Type 2 diabetes mellitus without complications; F17.220 Nicotine dependence, chewing tobacco, uncomplicated
CPT/HCPCS: 45380; 43239; 82948; 88305; J2003; J2704; J7120

== ENCOUNTER 2025-02-11 13:49 | Outpatient (CLI) | payer OTHER, SELFPAY ==
--- OUTSIDE RECORDS SUMMARY | 2025-02-11 23:09 | XMS_ITS | Clinical Summary ---
Author Organization [facility] Address [address] [place] [address] Care Team Providers Care Wire Worker Name Role Phone Boris Laws MD Primary Care Provider Allergies Active Allergy Reactions Criticality Noted Date [...] Low 12/09/2015 Looses use of legs Medications methadone (DOLOPHINE) 5 mg Tablet Take 15 mg by mouth 3 times daily. Active spironolactone (ALDACTONE) 25 mg tablet 8 Active methadone (DOLOPHINE) 10 mg Tablet 1 Active Vitamin D2 1,250 mcg (50,000 unit) capsule 2 Active amLODIPine (NORVASC) 5 mg tablet 3 Active pregabalin (LYRICA) 200 mg Capsule Take 200 mg by mouth daily. Active allopurinoL (ZYLOPRIM) 300 mg tablet Take 300 mg by mouth daily. 4 Active hydroCHLOROthi azide 12.5 mg tablet Take 12.5 mg by mouth daily. 4 Active testosterone cypionate (DEPO-TESTOSTE FENG) 200 mg/mL Oil Inject 0.5 mL (100 mg total) into the muscle as instructed every 14 (fourteen) days 5 Active Mounjaro 5 mg/0.5 mL Pen Injector INJECT THE CONTENTS OF ONE PEN SUBCUTANEOUSLY WEEKLY DIRECTED 5 Active lecithin, soy 1,200 mg Capsule Active OMEGA-3 FATTY ACIDS-FISH OIL ORAL Take 1,040 mg by mouth daily. Fish Oil 1250mg Active TURMERIC ORAL Take 1,500 mg by mouth daily. Active calcium citrate/vitami n D3 (CITRACAL + D ORAL) Take by mouth daily. Active alpha lipoic acid 600 mg Tablet Take 600 mg by mouth daily. Active ferrous gluconate 324 mg (37.5 mg iron) TabletIndicati ons:Chronic anemia TAKE 1 TABLET BY MOUTH DAILY 100 Tablet 3 5 Active apixaban (Eliquis) 5 mg tablet Take 1 Tablet (5 mg) by mouth 2 times daily. 180 Tablet 3 5 Active Active Problems Problem Noted Date Diagnosed Date Chronic anemia 09/19/2017 Morbid obesity with body mass index of 40.0-49.9 05/12/2017 Tobacco use 05/12/2017 Secondary hypercoagulable state 05/12/2017 Encounters Date Type Department Care Team Description 01/29/2025 External Device Data [facility] ABSTRACTION Provider, Abstract 01/23/2025 External Device Data [facility] ABSTRACTION Provider, Abstract 01/22/2025 External Device Data [facility] ABSTRACTION Provider, Abstract [...] on file Legal Sex Male 2:10 PM MUSIC INTERN Gender Identity Not on file Sexual Orientation Not on file Last Filed Vital Signs Vital Sign Reading Time Taken Comments Blood Pressure 141/73 06/19/2024 1:14 PM CDT Pulse 72 06/19/2024 1:11 PM CDT Temperature 35.9 C (96.7 F) 06/19/2024 1:11 PM CDT Respiratory Rate 16 06/19/2024 1:11 PM CDT Oxygen Saturation 97% 06/19/2024 1:1 1 PM CDT Inhaled Oxygen Concentration - - Weight 88.1 kg (194 lb 3.2 oz) 06/19/2024 1:11 PM CDT Pt stated this is the correct weight Height 182.9 cm (6') 06/01/2021 11:19 AM MUSIC INTERN Body Mass Index 26.34 06/01/2021 11:19 AM MUSIC INTERN Plan of Treatment Upcoming Encounters Date Type Department Care Team (Late st Contact Info) Description 06/25/2025 1:00 PM CDT Office Visit [facility] Oncology and Hematology - [place] [address] [facility] [[email or web address] [address] [place] [address] Michel Atkins MD [address] [facility] [address] [place] [address] Health Maintenance Due Date Last [...] (1 of 2) 2019 INFLUENZA VACCINE (#1) 2024 , 01/18/2022, 01/07/2021, Additional history exists COVID-19 Vaccine (3 - 2024-2 6 season) 2024 11/20/2020, 10/23/2020 DIABETES HBA1C Q 6 MONTHS 04/14/20252024, 05/03/2024, 11/08/2023, Additional history exists Abdominal Aortic Aneurysm (A AA) Screening Completed 09/19/2024 Procedures Procedure Name Priority Date/Time Associated Diagnosis Comments HEMOGLOBIN A1C Routine 08/01/2020 from Last 3 Months or Most Recently Relevant to Health Maintenance Results * HEMOGLOBIN A1C (08/01/2020) Blood us Abstract Provider CHEMISTRY ORDERABLES Final Res ult from Last 3 Months or Most Recently Relevant to Health Maintenance Insurance [facility] OPTIONS PPO [id number] [facility] [employer] PPO [id number] Care Teams Wire Worker Relationship Specialty [place] [address] [place] [address] PCP - General Internal Medicine 05/12/17
--- OUTSIDE RECORDS SUMMARY | 2025-02-11 23:10 | XMS_ITS | Data Portability ---
Author Organization [facility] and, [facility]) Address [address] [place] [address] Care Team Providers Care Superintendent Construction Name Role Phone EBEN PHILLIP Primary Care Provider DEAN LUDWIG Vocational Nurse Lvn Assessment Encounter Date Assessment Date Assessment LastModified by Organization Details LastModified Time 03/13/2021 03/13/2021 51 y/o with chronic venous insufficiency and CEAP grade 4 on the right and 4 on the left. VCSS score is 12. I am concerned that the symptoms may progress over time. Patients symptoms persist despite a trial of properly fitted gradient compression [id number] rs. Given the symptoms, I recommend lower extremity [...] like us to reach out to his chief operating engineer. We will plan this procedure after we discussed with his chief operating engineer. Treatment plan: Right leg - GSV closure [...] 11:47:01 021 [place] [address], [address] [place] - [facility] and 03/18/2021 12:34:42 018 Vein Stripping completed Brandy Wishberg - [facility] and 03/13/2021 11:41:17 016 Other completed Brandy Lizy [place] - [facility] and 03/13/2021 11:41:17 015 Other completed Brandy Wishberg - [facility] and 03/13/2021 11:41:17 014 Other completed Brandy Lizy [place] [facility] [employer] [facility] and 03/13/2021 11:41:17 010 Other completed Brandy Lizy [place] [facility] and 03/13/2021 11:41:17 002 Other completed Brandy Medel [place] [facility] and 03/13/2021 11:41:17 999 Other completed Brandy Medel [place] [facility] and 03/13/2021 11:41:17 989 Other completed Brandy Medel [place] [facility] and 03/13/2021 11:41:17 988 Other completed Brandy Medel [place] [facility] and 03/13/2021 11:41:17 Imaging Results None recorded. Procedure Notes None [...] n nausea Not available Not available 03/13/2021 13859 RxNorm Kenia martinez, [place] - [facility] and 11:49:41 3682 meperidin e medicatio n other Not available Not available 03/13/2021 6754 RxNorm Kenia martinez, [place] - [facility] and 11:50:32 3683 metformin medicatio n other Not available Not available 03/13/2021 6809 RxNorm GI Upset Kenia martinez, [place] - [facility] and 11:50:47 3684 nickel environme nt rash Not available Not available 03/13/2021 86092 29 RxNorm Kenia martinez, [place] - [facility] and 11:50:59 3685 prednison e medicatio n other Not available Not available 03/13/2021 8640 RxNorm Kenia martinez, [place] - [facility] and 11:51:13 3686 Substance with sulfonami de structure and antibacte rial mechanism of action (substanc e) medicatio n nausea Not available Not available 03/13/2021 18069 8003 SNOMED Kenia martinez, [place] - [facility] and 11:51:27 3687 adhesive tape environme nt,medica tion rash Not available Not available 03/13/2021 Kenia martinez, [place] - [facility] and 11:51:48 3688 vancomyci n medicatio n other Not available Not available 03/13/2021 54720 RxNorm Kidne y Failu re Kenia martinez, [...] Updated DateTime 03/13/2021 182.88 cm 44.8 kg/m2 165056.48 g Brandy Medel [email or web address] [facility] and 03/13/2021 11:40:52 Social History Question Answer Notes LastModified by Organizat ion Details LastModified Time Tobacco Smoking Status Current Every Day Smoker Crew tabacco Brandy Medel null, [email or web address] [facility] and 03/13/2021 11:45:16 Which Illicit Or Recreational Drugs Have You Used? None [email or web address] Information not available 03/13/2021 What Is The Highest Grade Or Level Of School You Have Completed Or The Highest Degree You Have Received? RU72292-8 Information not available 03/13/2021 What Was The Date Of Your Most Recent Tobacco Screening? 03/13/2021 [email or web address] Information not available 03/13/2021 How Much Tobacco Do You Smoke? 0.5 PPD [email or web address] Information not available 03/13/2021 How Many Years Have You Smoked Tobacco? 36 [email or web address] Information not available 03/13/2021 Sex: Unknown Functional Status Question Answer Note LastModified by Organization D etails LastModified Time Do you or have you ever used any other forms of tobacco or nicotine? No [email or web address] Information not available 03/13/2021 What is your level of alcohol consumption? None [email or web address] Information not available 03/13/2021 What is your occupation? Disabled [email or web address] Information not available 03/13/2021 Mental Status None recorded. Family History Relationship [...] available 01/30/2021 18:22:20 Medical History Condition Response Coronary Artery Disease N COPD N Gastrointestinal Disease Y Anxiety Disorder Y Cancer N Stroke N Neurologic Disorder Y Kidney Disease N Ulcers N Bleeding Disorder N Asthma N Hepatitis N Pulmonary Embolism Y Clotting Disorder N Genitourinary Disease N Deep Vein Thrombosis Y Varicose Veins N Anemia Y Diabetes Y Anticoagulation therapy N Hyperlipidemia N Heart Disease N Hypertension Y Past Encounters Encounter ID Performer Location Encounter Start Date Encounter Closed Date Diagnosis/Indication Diagnosis SNOMED-CT Code Diagnosis ICD10 Code Diagnosis IMO Codes Diagnosis Note [id number] Jayce Sutton MD [address] [address] 03/13/2021 11:31:37 03/18/2021 17:22:18 Varicose veins of lower extremity 78214101 I83.893 Primary ve nous insufficiency of lower limb 185892847 I87.2 [id number] Jayce Sutton MD [facility] [address] [facility] [address],[facility] [address] ( [place] [address] 03/16/2021 10:24:11 03/18/2021 16:44:28 Varicose veins of lower extremity 56353415 I83.893 Edema of l ower extremity 500161575 R60.0 Health Concerns Section Related Observation LastModified by Organization Detai ls LastModified Time None Recorded Concern Status LastModified by Organization Details LastModified Time None Recorded Advance Directives Directive None Recorded Payers Insurance Date Sequence Insurance Name Policy Number Policy Jasmine Covered Member ID Jasmine Member ID Guarantor Name 01/27/2022 1 ANDRA-MATIAS (PPO) [id number] Tojimmy Phillip [id number] Jesus Phillip 10/16/2021 2 [place] [id number] Jesus Phillip [id number] Jesus Phillip 02/03/2022 2 [place] [id number] Jesus Phillip [id number] Jesus Phillip Notes Date Note Type Note Provider Name and Address Organization Details Recorded Time 1 text/html OA Arterial Occlusive Disease: Lower ExtremityReported by PatientHPIFor severity, patient reportsmoderate. For location, patient reportsbilateral le. For quality, patient reportscramping,aching, andtingling. For onset/timing, patient reportscontinuous. For context, patient reportstobacco use. For associated symptoms, patient reportsno numbnessandno skin discoloration. Varicose Vein or Venous insufficiencyReported by PatientHPIFor quality, patient reportsaching,stabbing,thr obbing, andfrequentbut reportsworsening. For associated symptoms, patient reportsnumbness,tingling,s welling,throbbing, anddiscolorationbut reportsno redness,no ecchymosis,no drainage,no rash,no itching,no heaviness,no fever,no chills, andno warmth. For location, patient reportsbilateral. For alleviating factors, patient reportselevation. For aggravating factors, patient reportscannot identify. As related to his venous disease, patient reports aching and cramping during activity and prolonged standing.Patient endorses prior use of compression stockings.Patients symptoms persist despite a trial of properly fitted gradient compression stockingsfor 2 years Jayce Sutton MD [address] [place] [address], [address], [email or web address] [facility] and 03/18/2021 12:35:00 1 text/html 51-year-old male with venous insufficiency, who has intravenous stents placed in his iliac veins. He had an ultrasound performed on Tuesday and we were discussing the results. Recent ultrasound demonstrates GSV insufficiency. Jay[place] Sutton [place] [address] [place] [address], [address], [place] - [facility] and 03/18/2021 13:11:37
--- OUTSIDE RECORDS SUMMARY | 2025-02-11 23:11 | XMS_ITS | Clinical Summary ---
Author Organization [facility] Address [address] [facility] [place] [address] Care Team Providers Care Head Of Art Name Role Phone Boris Laws DO Primary Care Provider [phone] Source Comments [facility],non-owned Affiliates and Associated Physician Practices is amultiple site organization consisting of ambulatory clinics and hospital sitesin [place], [place], [place] and [place]. This disclosure is being madepursuant to the Care Everywhere program and may not contain all information available regarding this patient. Last updated 17.[facility] Allergies Active Allergy Reactions Criticality Noted Date Comments Adhesive Sensitivity Rash Medium 12/22/2018 Vancomycin Renal Injury High 05/12/2017 Kidney failure Medications * Be aware that medications may not be up to date on this document. Alwaysverify current medications with the patient. ALPRAZolam (XANAX) 1 MG tablet 06/22/2017 Active ELIQUIS 5 MG tablet 2 times daily 06/21/2017 Active calcium citrate (CITRACAL 950) 950 MG tablet Take 1 tablet by mouth Active vitamin D, ergocalciferol, (DRISDOL) 09539 UNITS capsule 06/21/2017 Activ e JANUVIA 100 MG tablet 06/21/2017 Active LYRICA 200 MG capsule 3 times daily 05/24/2017 Active diphenoxylate-a tropine (LOMOTIL) 2.5-0.025 MG tablet 08/15/2017 Active DULoxetine [...] at Not on file Legal Sex Male 3:05 PM CDT Gender Identity Not on file Sexual Orientation [...] COLON CA SCREENING 1969 LIPID TESTING 1969 COVID-19 VACCINE (#1) 1974 HIV SCREENING 01/12/1984 HEPATITIS C SCREENING 01/07/1987 DTAP/TDAP/TD VACCINES (1 - Tdap) 01/12/1988 HEPATITIS B VACCINE (1 of 3 - 19+ 3-dose series) 01/12/1988 PNEUMOCOCCAL VACCINE 50+ (1 of 1 - PCV) 2019 ZOSTER VACCINE (1 of 2) 2019 SCREENING FOR DIABETES 01/19/2022 9, 11/17/2018, 08/01/2017 DEPRESSION SCREENING 03/28/2024 INFLUENZA VACCINE (#1) 2024 2, 01/07/2021, 01/25/2020, Additional history exists HIB VACCINE Aged Out No longer eligi [...] Progress Patient-Stated? Author Mobility General No Fabiola Sanchez RN Note: Expected end date: 03/25/2019 The goal is to maintain or improve your mobility at the optimum level for you. Interventions: Procedures Procedure Name Priority Date/Time Associated Diagnosis Comments GLUCOSE - POINT OF CARE Routine 01/19/2019 12:29 PM CDT from Last 3 Months or Most Recently Relevant to Health Maintenance Results * (ABNORMAL) GLUCOSE - POINT OF CARE (01/19/2019 12:29 PM CDT) Pathologist [facility] Glucose WB/POC 132(H) 70 - 115 mg/dL 01/19/2019 12:33 PM CDT [facility] Specimen Type Arterial/C apillary 01/19/2019 12:33 PM CDT [facility] Comment:METAL WEIGHER: JORGE HILL Blood BLOOD SPECIMEN / Unknown 01/19/2019 12:29 PM CDT 01/19/2019 12:33 PM CDT Anjelica Ortiz PA-C LAB - POINT OF CARE ORD ERABLES Final Result [address] [phone] from Last 3 Months or Most Recently Relevant to Health Maintenance Insurance [facility] MEDICARE Care Teams Head Of Art Relationship Specialty Start Date End Date Boris Laws DO [address] [place] [address] PCP - General 08/02/17
== END 2025-02-11 13:50 | disposition home or self-care (01) ==
LOC: ANHAUDIO 13:49
PROVIDERS: Visit Provider Otolaryngology
DX: H93.13 Tinnitus, bilateral (principal); H90.3 Sensorineural hearing loss, bilateral
CPT/HCPCS: 92557; 92567